=== PATIENT | male | born 1950 ===

== ENCOUNTER 2020-08-08 15:02 | Outpatient (REF) | payer MEDICARE, MEDICAID, SELFPAY ==
--- NOTE | 2020-08-08 16:30 | MHC.AU.HAS ---
Date of Visit: 08/08/20 Historical Information: Description of Hearing: Asymmetrical sensorineural hearing loss bilaterally. Mild to moderate in the right ear, mild to moderately severe in the left ear. Was seen by ENT Dr. Pruitt, who provided medical clearance for binaural hearing aid use. Summary: Mr. Lepe reports difficulties hearing and understanding in most situations. 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 Binaural amplification is recommended to facilitate improved communication. Rechargeable KITTY aids were recommended based on his reduced dexterity. Hearing Aid Prescription: Based on the individual?s shared listening needs, communication environments, dexterity, desire for connectivity, and personal preferences, the following prescription for amplification has been made: Right ear: Management Tech: Phonak Model: Audeo P70-R Color: P1 Battery Size: Rechargeable Tungsten Tender/Slim Tube Size: 1 Medium Type of Dome: Open Left ear: Left ear prescription to be same as Right Hearing Aid above: Yes Management Tech: Phonak Model: Audeo P70-R Color: P1 Battery Size: Rechargeable Tungsten Tender/Slim Tube Size: 1 Medium Type of Dome: Open Action Taken/Action Needed: Hearing Fitting to be scheduled when materials arrive Primary Diagnosis: H90.3 Sensorineural hearing loss, bilateral Signature: Provider: Bryan Tello, ALVIN-A
== END 2020-08-08 15:03 | disposition home or self-care (01) ==
LOC: HO.HAP 15:02
PROVIDERS: Visit Provider Otolaryngology
DX: Z46.1 Encounter for fitting and adjustment of hearing aid (principal)
CPT/HCPCS: 92591

== ENCOUNTER 2020-08-27 09:14 | Outpatient (REF) | payer MEDICARE, MEDICAID, SELFPAY | END 2020-08-27 09:15 | disposition home or self-care (01) | LOC: HO.HAP 09:14 | PROVIDERS: Visit Provider Internal Medicine | DX: H90.3 Sensorineural hearing loss, bilateral (principal) | CPT/HCPCS: V5011; V5020; V5160; V5261 ==

== ENCOUNTER 2020-09-11 11:03 | Outpatient (REF) | payer MEDICARE, MEDICAID, SELFPAY | END 2020-09-11 11:04 | disposition home or self-care (01) | LOC: HO.HAP 11:03 | PROVIDERS: Visit Provider Internal Medicine | DX: Z13.89 Encounter for screening for other disorder (principal) ==

== ENCOUNTER 2020-09-26 11:03 | Outpatient (REF) | payer MEDICARE, MEDICAID, SELFPAY ==
[2020-09-26 11:38] LABS: MANUAL DIFF FLAG NO
[2020-09-26 11:51] LABS: Basophils Percent Auto 0.5 % (0-2); Eosinophils Absolute Auto 0.3 X10*3/uL (0.0-0.4); Eosinophils Percent Auto 4.4 % (0-4); Hematocrit 39.2 % (42-52); Hemoglobin 13.3 g/dl (14.0-18.0); Imm Gran Abs Auto 0.02 X10*3/uL (0.00-0.03); Imm Gran Pct Auto 0.3 % (0.0-0.4); Lymphocytes Absolute Auto 2.8 X10*3/uL (1.2-4.9); Lymphocytes Percent Auto 44.5 % (20-40); Mean Corpuscular HGB Conc 33.9 g/dl (31.0-36.0); Mean Corpuscular Hemoglobin 31.7 pg (27.0-33.0); Mean Corpuscular Volume 93.6 fL (80-98); Mean Platelet Volume 9.2 fL (9.4-12.4); Monocytes Absolute Auto 0.5 X10*3/uL (0.1-1.2); Monocytes Percent Auto 7.8 % (2-11); Neutrophils Absolute Auto 2.7 X10*3/uL (2.0-8.3); Neutrophils Percent Auto 42.5 % (45-73); Platelet Count 173 X10*3/uL (160-400); Red Blood Count 4.19 X10*6/uL (4.60-5.80); Red Cell Distribution Width 12.7 % (11.0-16.0); White Blood Count 6.4 X10*3/uL (4.8-10.8)
[2020-09-26 12:17] LABS: Alanine Aminotransferase 14 U/L (0-40); Albumin Level 3.9 g/dL (3.5-5.0); Alkaline Phosphatase 92 U/L (39-117); Anion Gap 11 (12-20); Aspartate Amino Transferase 17 U/L (5-37); Bilirubin Total 0.5 mg/dL (0.0-1.0); Blood Urea Nitrogen 21 mg/dL (9-16); Calcium 8.8 mg/dL (8.4-10.2); Carbon Dioxide 28 mmol/L (22-29); Chloride 106 mmol/L (96-108); Cholesterol 182 mg/dL; Estimated Glomerular Filt Rate > 60; Glucose Fasting 149 mg/dL (60-99); HDL Cholesterol 55 mg/dL; LDL Cholesterol Calculated 120 mg/dl; Potassium 4.7 mmol/L (3.3-5.1); Sodium 140 mmol/L (135-145); Total Protein 6.6 g/dL (6.5-8.0); Triglycerides 37 mg/dL
[2020-09-26 12:18] LABS: Creatinine Urine 110.76 mg/dL
[2020-09-26 12:59] LABS: Estimated Average Glucose 157 mg/dL; Hemoglobin A1c % 7.1 %
== END 2020-09-26 11:04 | disposition home or self-care (01) ==
LOC: HO.LAB 11:03
PROVIDERS: Visit Provider Internal Medicine
DX: Z00.00 Encounter for general adult medical examination without abnormal findings (principal); E11.9 Type 2 diabetes mellitus without complications
CPT/HCPCS: 36415; 80053; 80061; 82043; 83036; 85025

== ENCOUNTER 2021-06-23 09:53 | Outpatient (REF) | payer MEDICARE, MEDICAID, SELFPAY ==
[2021-06-23 10:04] LABS: MANUAL DIFF FLAG NO
[2021-06-23 10:22] LABS: Basophils Percent Auto 0.6 % (0-2); Eosinophils Absolute Auto 0.4 X10*3/uL (0.0-0.4); Hemoglobin 13.3 g/dl (14.0-18.0); Imm Gran Abs Auto 0.03 X10*3/uL (0.00-0.03); Imm Gran Pct Auto 0.4 % (0.0-0.4); Lymphocytes Absolute Auto 2.7 X10*3/uL (1.2-4.9); Lymphocytes Percent Auto 38.2 % (20-40); Mean Corpuscular HGB Conc 33.3 g/dl (31.0-36.0); Mean Corpuscular Hemoglobin 30.7 pg (27.0-33.0); Mean Corpuscular Volume 92.4 fL (80.0-98.0); Mean Platelet Volume 8.8 fL (9.4-12.4); Monocytes Absolute Auto 0.6 X10*3/uL (0.1-1.2); Monocytes Percent Auto 7.8 % (2-11); Neutrophils Absolute Auto 3.42 x10*3/uL (2.0-8.3); Platelet Count 188 X10*3/uL (160-400); Red Blood Count 4.33 X10*6/uL (4.60-5.80); Red Cell Distribution Width 12.6 % (11.0-16.0); White Blood Count 7.1 X10*3/uL (4.8-10.8)
[2021-06-23 10:33] LABS: Estimated Average Glucose 177 mg/dL; Hemoglobin A1c % 7.8 %
[2021-06-23 10:45] LABS: Alanine Aminotransferase 16 U/L (0-40); Albumin Level 3.8 g/dL (3.5-5.0); Alkaline Phosphatase 104 U/L (39-117); Anion Gap 8 (12-20); Aspartate Amino Transferase 14 U/L (5-37); Bilirubin Total 0.6 mg/dL (0.0-1.0); Blood Urea Nitrogen 21 mg/dL (9-16); Calcium 9.1 mg/dL (8.4-10.2); Carbon Dioxide 31 mmol/L (22-29); Chloride 107 mmol/L (96-108); Cholesterol 164 mg/dL; Estimated Glomerular Filt Rate > 60; Glucose Fasting 176 mg/dL (60-99); HDL Cholesterol 49 mg/dL; LDL Cholesterol Calculated 106 mg/dl; Potassium 4.9 mmol/L (3.3-5.1); Sodium 141 mmol/L (135-145); Total Protein 6.5 g/dL (6.5-8.0); Triglycerides 48 mg/dL
== END 2021-06-23 09:54 | disposition home or self-care (01) ==
LOC: HO.LAB 09:53
PROVIDERS: PCP Internal Medicine; Visit Provider Internal Medicine
DX: Z00.00 Encounter for general adult medical examination without abnormal findings (principal); E11.9 Type 2 diabetes mellitus without complications
CPT/HCPCS: 36415; 80053; 80061; 83036; 85025

== ENCOUNTER 2021-10-14 10:31 | Outpatient (REF) | payer MEDICARE, MEDICAID, SELFPAY ==
[2021-10-14 10:49] LABS: MANUAL DIFF FLAG NO
[2021-10-14 11:42] LABS: Basophils Percent Auto 0.5 % (0-2); Eosinophils Absolute Auto 0.2 X10*3/uL (0.0-0.4); Eosinophils Percent Auto 3.6 % (0-4); Hematocrit 40.1 % (42.0-52.0); Hemoglobin 13.2 g/dl (14.0-18.0); Imm Gran Abs Auto 0.01 X10*3/uL (0.00-0.03); Imm Gran Pct Auto 0.2 % (0.0-0.4); Lymphocytes Absolute Auto 2.8 X10*3/uL (1.2-4.9); Lymphocytes Percent Auto 43.9 % (20-40); Mean Corpuscular HGB Conc 32.9 g/dl (31.0-36.0); Mean Corpuscular Hemoglobin 30.6 pg (27.0-33.0); Mean Corpuscular Volume 92.8 fL (80.0-98.0); Monocytes Absolute Auto 0.5 X10*3/uL (0.1-1.2); Monocytes Percent Auto 7.6 % (2-11); Neutrophils Absolute Auto 2.9 x10*3/uL (2.0-8.3); Neutrophils Percent Auto 44.2 % (45-73); Platelet Count 177 X10*3/uL (160-400); Red Blood Count 4.32 X10*6/uL (4.60-5.80); Red Cell Distribution Width 13.1 % (11.0-16.0); White Blood Count 6.5 X10*3/uL (4.8-10.8)
[2021-10-14 11:48] LABS: Prothrombin Time 11.9 SEC (9.9-13.0)
[2021-10-14 12:06] LABS: Glucose Fasting 151 mg/dL (60-99)
[2021-10-14 12:09] LABS: Anion Gap 10 (12-20); Blood Urea Nitrogen 18 mg/dL (9-16); Calcium 9.2 mg/dL (8.4-10.2); Carbon Dioxide 29 mmol/L (22-29); Chloride 106 mmol/L (96-108); Cholesterol 172 mg/dL; Estimated Glomerular Filt Rate > 60; Glucose Random 152 mg/dL (60-115); HDL Cholesterol 52 mg/dL; LDL Cholesterol Calculated 110 mg/dl; Potassium 4.7 mmol/L (3.3-5.1); Sodium 140 mmol/L (135-145); Triglycerides 51 mg/dL
[2021-10-14 12:14] LABS: Estimated Average Glucose 177 mg/dL; Hemoglobin A1c % 7.8 %
== END 2021-10-14 10:32 | disposition home or self-care (01) ==
LOC: HO.LAB 10:31
PROVIDERS: PCP Internal Medicine; Visit Provider Internal Medicine
DX: Z01.818 Encounter for other preprocedural examination (principal); Z13.0 Encounter for screening for diseases of the blood and blood-forming organs and certain disorders involving the immune mechanism; R51.9 Headache, unspecified; E11.65 Type 2 diabetes mellitus with hyperglycemia
CPT/HCPCS: 36415; 80048; 80061; 82947; 83036; 85025; 85610

== ENCOUNTER 2022-06-02 09:43 | Outpatient (REF) | payer MEDICARE, MEDICAID, SELFPAY ==
[2022-06-02 10:32] LABS: Estimated Average Glucose 177 mg/dL; Hemoglobin A1c % 7.8 %
[2022-06-02 10:56] LABS: Cholesterol 175 mg/dL; Glucose Fasting 181 mg/dL (60-99); HDL Cholesterol 54 mg/dL; LDL Cholesterol Calculated 110 mg/dl; Triglycerides 58 mg/dL
== END 2022-06-02 09:44 | disposition home or self-care (01) ==
LOC: HO.LAB 09:43
PROVIDERS: PCP Internal Medicine; Visit Provider Internal Medicine
DX: E78.5 Hyperlipidemia, unspecified (principal); E11.65 Type 2 diabetes mellitus with hyperglycemia
CPT/HCPCS: 36415; 80061; 82947; 83036

== ENCOUNTER → 2022-07-09 14:11 | Outpatient (BNVA) | payer MEDICARE, MEDICAID, SELFPAY | PROVIDERS: PCP Internal Medicine; Visit Provider Nurse Practitioner | DX: Z01.818 Encounter for other preprocedural examination (principal) | CPT/HCPCS: 99202 ==

== ENCOUNTER 2022-12-29 09:07 | Outpatient (REF) | payer MEDICARE, MEDICAID, SELFPAY ==
[2022-12-29 09:31] LABS: MANUAL DIFF FLAG NO
[2022-12-29 09:53] LABS: Basophils Percent Auto 0.6 % (0-2); Eosinophils Absolute Auto 0.3 X10*3/uL (0.0-0.4); Hematocrit 41.8 % (42.0-52.0); Hemoglobin 13.9 g/dl (14.0-18.0); Imm Gran Abs Auto 0.01 X10*3/uL (0.00-0.03); Imm Gran Pct Auto 0.1 % (0.0-0.4); Lymphocytes Absolute Auto 2.8 X10*3/uL (1.2-4.9); Mean Corpuscular HGB Conc 33.3 g/dl (31.0-36.0); Mean Corpuscular Hemoglobin 30.3 pg (27.0-33.0); Mean Corpuscular Volume 91.3 fL (80.0-98.0); Monocytes Absolute Auto 0.6 X10*3/uL (0.1-1.2); Monocytes Percent Auto 8.1 % (2-11); Neutrophils Percent Auto 44.2 % (45-73); Platelet Count 174 X10*3/uL (160-400); Red Blood Count 4.58 X10*6/uL (4.60-5.80); Red Cell Distribution Width 12.8 % (11.0-16.0); White Blood Count 6.8 X10*3/uL (4.8-10.8)
[2022-12-29 10:15] LABS: Estimated Average Glucose 166 mg/dL; Hemoglobin A1c % 7.4 %
[2022-12-29 11:27] LABS: Alanine Aminotransferase 13 U/L (0-40); Albumin Level 3.7 g/dL (3.5-5.0); Alkaline Phosphatase 107 U/L (39-117); Anion Gap 9 (12-20); Aspartate Amino Transferase 13 U/L (5-37); Bilirubin Total 0.5 mg/dL (0.0-1.0); Blood Urea Nitrogen 17 mg/dL (9-16); Calcium 9.1 mg/dL (8.4-10.2); Carbon Dioxide 29 mmol/L (22-29); Chloride 108 mmol/L (96-108); Cholesterol 169 mg/dL; Estimated Glomerular Filt Rate > 60; Glucose Fasting 152 mg/dL (60-99); HDL Cholesterol 49 mg/dL; LDL Cholesterol Calculated 113 mg/dl; Potassium 4.7 mmol/L (3.3-5.1); Sodium 141 mmol/L (135-145); Total Protein 6.2 g/dL (6.5-8.0); Triglycerides 35 mg/dL
[2022-12-29 11:30] LABS: Thyroid Stimulating Hormone 4.88 uIU/mL (0.32-4.0)
== END 2022-12-29 09:08 | disposition home or self-care (01) ==
LOC: HO.LAB 09:07
PROVIDERS: PCP Internal Medicine; Visit Provider Internal Medicine
DX: D64.9 Anemia, unspecified (principal); E78.5 Hyperlipidemia, unspecified; N28.9 Disorder of kidney and ureter, unspecified; E03.9 Hypothyroidism, unspecified; R73.9 Hyperglycemia, unspecified; E11.69 Type 2 diabetes mellitus with other specified complication; E66.01 Morbid (severe) obesity due to excess calories
CPT/HCPCS: 36415; 80053; 80061; 83036; 84443; 85025

== ENCOUNTER 2023-02-02 10:03 | Day surgery (SDC) | payer MEDICARE, MEDICAID, SELFPAY ==
[2023-01-31 14:55] VITALS: BMI 30.4
--- NOTE | 2023-02-01 13:25 | HO.ANESPROP2 ---
Documented by User: Claire Chung NP 02/01/23 13:26 HPI - Anesthesia Eval Consult details Narrative: 72yo M for Colonoscopy PMFSH Active Problems Active Problems: All Active Problems (Updated 01/31/23 @ 14:50 by Aliza Moses RN) Tinea corporis (Acute) Encounter for initial annual wellness visit (AWV) in Medicare patient (Acute) Screening for colon cancer (Acute) Adult general medical exam (Acute) Preop exam for internal medicine (Acute) Peripheral vascular disease (Acute) Spondylolisthesis (Acute) Peptic ulcer disease (Acute) Pre-op examination (Acute) Depression (Acute) Diabetes mellitus with coincident hypertension (Acute) Diabetes mellitus (Acute) Hypertension (Acute) Past Medical History Medical History Diabetes mellitus Diabetes mellitus with coincident hypertension Hypertension Peptic ulcer disease Preop exam for internal medicine Family History Family History Father No problems noted. Mother No problems noted. Surgical History Surgical History H/O blepharoplasty H/O rhinoplasty History of appendectomy History of bladder surgery History of colonoscopy History of esophagogastroduodenoscopy (EGD) Social History Social History Housing: House Alcohol intake: never Patient Tobacco Use Status: Never used Tobacco e-Cigarette/Vaping Use: Never Used Second Hand Smoke Exposure: No Use of substances other than those prescribed or required for medical reasons: No Are you DNR?: No Advance Directives: No Advance Directives Information Provided: Yes service: No Current occupational status: retired Cognitive needs: No Hearing needs: No Vision needs: No Meds Allergies Allergy/AdvReac Type Severity Reaction Status Date / Time No Known Allergies Allergy Verified 02/02/23 10:36 [No Known Allergies*] Home Medications Medication Instructions Recorded Confirmed Last Taken Type vnkulruzkq-kcrjyquobdrvj-ibodfpqb 1 - 2 tab PO DAILY PRN migraine 02/02/23 02/02/23 Unknown History 50 mg-325 mg-40 mg tablet Exam Exam Date and Time: February 01, 2023 1325 Height,Weight and Vital Signs: Height 5 ft 2 in Weight 75.296 kg Pertinent Lab Results Pertinent Lab Results: Laboratory Tests 12/29/22 12/29/22 09:29 09:29 WBC 6.8 Hgb 13.9 L Hct 41.8 L Plt Count 174 Sodium 141 Potassium 4.7 Chloride 108 Carbon Dioxide 29 BUN 17 H Creatinine 0.75 Assessment and Plan Assessment Anesthesia Assessment: Chart Reviewed Documented by User: Julieth Mcmillan MD 02/02/23 11:16 PMFSH Active Problems Active Problems: All Active Problems (Updated 02/02/23 @ 11:08 by Julieth Mcmillan MD) Tinea corporis (Acute) Encounter for initial annual wellness visit (AWV) in Medicare patient (Acute) Screening for colon cancer (Acute) Adult general medical exam (Acute) Preop exam for internal medicine (Acute) Peripheral vascular disease (Acute) Spondylolisthesis (Acute) Peptic ulcer disease (Acute) Pre-op examination (Acute) Depression (Acute) Diabetes mellitus with coincident hypertension (Acute) Diabetes mellitus (Acute) Hypertension (Acute) Migraines Past Medical History Medical History Diabetes mellitus Diabetes mellitus with coincident hypertension Hypertension Peptic ulcer disease Preop exam for internal medicine Family History Family History Father No problems noted. Mother No problems noted. Family history of problems with anesthesia: No Surgical History Surgical History H/O blepharoplasty H/O rhinoplasty History of appendectomy History of bladder surgery History of colonoscopy History of esophagogastroduodenoscopy (EGD) History of Problems with Anesthesia: No Social History Social History Housing: House Alcohol intake: never Patient Tobacco Use Status: Never used Tobacco e-Cigarette/Vaping Use: Never Used Second Hand Smoke Exposure: No Use of substances other than those prescribed or required for medical reasons: No Are you DNR?: No Advance Directives: No Advance Directives Information Provided: Yes service: No Current occupational status: retired Cognitive needs: No Hearing needs: No Vision needs: No Meds Allergies Allergy/AdvReac Type Severity Reaction Status Date / Time No Known Allergies Allergy Verified 02/02/23 10:36 [No Known Allergies*] Home Medications Medication Instructions Recorded Confirmed Last Taken Type kycquortvb-gyunrldzqdcin-hzkykthg 1 - 2 tab PO DAILY PRN migraine 02/02/23 02/02/23 Unknown History 50 mg-325 mg-40 mg tablet Exam Height,Weight and Vital Signs: Height 5 ft 2 in Weight 75.296 kg Vital Signs Temp Pulse Resp BP Pulse Ox O2 Del Method 02/02/23 11:03 98.3 F 66 16 146/60 H 97 Room Air Pertinent Lab Results Pertinent Lab Results: Laboratory Tests 12/29/22 12/29/22 09:29 09:29 WBC 6.8 Hgb 13.9 L Hct 41.8 L Plt Count 174 Sodium 141 Potassium 4.7 Chloride 108 Carbon Dioxide 29 BUN 17 H Creatinine 0.75 POC 62 Airway Mallampati Class: III TM Dist: >3cm Neck ROM: Full Loose/Missing/Broken Teeth: No (Denies broken, loose, missing teeth) Heart: RRR Lungs: CTAB Assessment and Plan Assessment Anesthesia Assessment: Anesthesia Plan Discussed Final Anesthetic Review Family History of Problems with Anesthesia: No History of Problems with Anesthesia: No NPO: Yes ASA Class: III Final Preanesthetic Review: No Changes in Pt Med Stat, Meds/Allgs Chart Reviewed, Consent Obtained/Reviewed and Anes Risks/Benef Reviewed Patient Risk: Intermediate Procedure Risk: Low Assessment/Block/Sedation in SS: Assess/Block/Sedation-SS Anesthetic Plan Anesthetic Plan: MAC: Disposition: Standard PACU
[2023-02-02 10:55] VITALS: BMI 29.3
[2023-02-02 11:03] VITALS: BP 146/60; PULSE 66; RESP 16; TEMP 36.8; O2SAT 97
--- NOTE | 2023-02-02 11:13 | P.HPSUR_ITS ---
Pre-Procedural Eval Section A Date of Service: 02/02/23 Section B Chief Complaint: screening for malignant neoplasm of Colon Relevant Family History (Specify if Yes): No Relevant Social History: None Present Medications: see Short Stay Collaborative assessment Medical History: Significant History (Diabetes mellitus Diabetes mellitus with coincident hypertension Hypertension Peptic ulcer disease Preop exam for internal medicine) History of Previous Operations: Relevant previous surgery/procedure and date(s) (H/O blepharoplasty H/O rhinoplasty History of appendectomy History of bladder surgery History of colonoscopy History of esophagogastroduodenoscopy (EGD)) Allergies: Allergies Allergy/AdvReac Type Severity Reaction Status Date / Time No Known Allergies Allergy Verified 02/02/23 10:36 [No Known Allergies*] Review of Systems Sugical H&P ROS: Negative: Constitution, Cardiovascular, Respiratory, Neurological, Psychiatric, Hem-Onc, Allergic/Immunologic, Gastrointestinal, Genitourinary, Musculoskeletal, Integumentary, Endocrine and Eyes/Ears /Nose/Throat Exam Surgical H&P Exam: Normal: HEENT, Normal: Heart, Normal: Lungs, Normal: Extremities, Normal: Abdomen and Normal: Skin and Significant Findings: Neurological (tremor) Plan Diagnosis/Plan: Unchanged I have reviewed the history and physical and performed a pertinent physical examination on my patient. No changes have occurred unless specified. Time Spent With Patient Time: Total time managing care of this patient today ____ minutes.
--- NOTE | 2023-02-02 11:14 | W.PM.OPN ---
Operative Note Operative Note Date of Service: 02/02/23 Narrative: Operative Information Procedure Description: Colonoscopy Indication: screening Anesthesia: MAC COLONOSCOPY Instrument: Olympus variable stiffness pediatric scope 190L Colonoscopy Monitoring: Vital signs and clinical assessment, continuous EKG monitoring, Pulse oximetry, Carbon Dioxide monitoring and blood pressure monitoring were done throughout the procedure. Colon withdrawal time was 18 minutes. Procedure: The patient was placed in the left lateral decubitis position and pre-procedure medications were administered. After a digital rectal examination of the ano-rectum, the video colonoscope was inserted into the rectum and advanced through the colon to the cecum/TI. The colonoscope was slowly withdrawn in a retrograde panoramic fashion and the colon mucosa was carefully examined including a retroflexed view of the rectum. Findings and interventions are described below. Procedure Difficulty: moderate, pressure applied Findings: Terminal Ileum-normal Cecum:normal Ascending Colon: 4-6 mm sessile polyp removed with cold snare Transverse Colon -normal Descending Colon:normal Sigmoid Colon: moderate diverticulosis, over one tic there was a 4-5 mm sessile polyp. eleview was injected and lifted and then removed with cold forceps with one clip applied to close the defect Rectum: Retroflexion with moderate sized internal hemorrhoids, grade I Anorectum - normal Colon preparation: [place] Bowel Preparation Scale Right colon; 2 Transverse colon: 2 Left colon; 2 (0 = Unprepared colon segment with mucosa not seen due to solid stool that cannot be cleared. 1 = Portion of mucosa of the colon segment seen, but other areas of the colon segment not well seen due to staining, residual stool and/or opaque liquid. 2 = Minor amount of residual staining, small fragments of stool and/or opaque liquid, but mucosa of colon segment seen well. 3 = Entire mucosa of colon segment seen well with no residual staining, small fragments of stool or opaque liquid) Impression and Post Procedure Diagnosis: polyps internal hemorrhoids diverticular disease Plan: High fiber diet leaflet Avoid straining at stool, epsom salts and sitz bath, anusol supps or cream Repeat Colonoscopy in 5 years if heatlh allows or earlier if clinically indicated, otherwise this will be his last screening colonoscopy Above findings were reviewed with the patient and relevant handouts were provided if indicated.
[2023-02-02] MEDS: Lactated Ringers 1,000 ML 100 ML IVCONT (11:21)
[2023-02-02 11:25] LABS: Glucose, Whole Blood 62 mg/dL (60-115)
[2023-02-02] MEDS: Dextrose 5 % 250 ML IVCONT (11:27)
[2023-02-02 12:09] VITALS: BP 91/50; PULSE 63; RESP 16; TEMP 37.2; O2SAT 97
[2023-02-02 12:24] VITALS: BP 113/62; PULSE 66; RESP 16; O2SAT 98
[2023-02-02 12:39] VITALS: BP 107/65; PULSE 60; RESP 16; TEMP 37.2; O2SAT 98
== END 2023-02-02 13:29 | disposition home or self-care (01) ==
PROVIDERS: PCP Internal Medicine; Visit Provider Internal Medicine Gastroenterology
PROC: 0DJD8ZZ Inspection of Lower Intestinal Tract, Via Natural or Artificial Opening Endoscopic (ICD-10-PCS; CPT 45378; principal; 2023-02-02 12:40)
DX: Z12.11 Encounter for screening for malignant neoplasm of colon (principal); D12.5 Benign neoplasm of sigmoid colon; K63.5 Polyp of colon; K57.30 Diverticulosis of large intestine without perforation or abscess without bleeding; K64.0 First degree hemorrhoids; K27.9 Peptic ulcer, site unspecified, unspecified as acute or chronic, without hemorrhage or perforation; E11.9 Type 2 diabetes mellitus without complications; I10 Essential (primary) hypertension; I73.9 Peripheral vascular disease, unspecified; G43.909 Migraine, unspecified, not intractable, without status migrainosus; B35.4 Tinea corporis; Z79.84 Long term (current) use of oral hypoglycemic drugs; Z79.899 Other long term (current) drug therapy; Z98.890 Other specified postprocedural states
CPT/HCPCS: 45385; 45380; 45381; 82947; 88305

== ENCOUNTER → 2023-02-17 12:26 | Outpatient (BNVA) | payer MEDICARE, MEDICAID, SELFPAY | PROVIDERS: PCP Internal Medicine; Visit Provider Nurse Practitioner | DX: D12.6 Benign neoplasm of colon, unspecified (principal) | CPT/HCPCS: 99212 ==

== ENCOUNTER 2023-03-31 08:54 | Outpatient (AMB) | payer MEDICARE, MEDICAID, SELFPAY ==
--- NOTE | 2023-03-31 09:01 | MHC.PC.OV ---
Vital Signs 03/31/23 09:03 Height 5 ft 2 in Weight 159 lb BMI 29.1 BP 108/66 Blood Pressure Location Lt brachial Position Sitting Pulse 58 Pulse Source Pulse Oximeter Pulse Oximetry (%) 96 Oxygen Delivery Method Room Air Intake Visit Reasons: PE Steward/Stewardess Second Required: No Accompanied by: Spouse Allergies No Known Allergies [No Known Allergies*] Allergy (Verified 03/31/23 09:08) Medication List - Last Reconciled 03/31/23 by Jovani Reese MD blood sugar diagnostic FREESTYLE LITE TEST STRIPS THREE TIMES A DAY blood-glucose meter (FreeStyle Lite Meter kit) use to check blood sugars twice a day ngcdpejuzr-kegqwdvugsdhr-fxge 50-325-40 mg 1 - 2 tabs PO DAILY PRN clotrimazole-betamethasone 1-0.05 % 1 appl topical BID 2 weeks glyburide 5 mg PO DAILY lancets (FreeStyle Lancets) FREESTYLE LANCETS THREE TIMES A DAY lisinopril 10 mg PO DAILY metformin 500 mg PO BID phenazopyridine 100 mg PO TID PRN propranolol 10 mg PO ONCE PRN Tobacco use date assessed: 03/31/23 Fall risk assessment: No Falls in past year Last assessed Fall Risk: 03/31/23 Dental Screening Dental Screen Date: 03/31/23 Did you have a dental visit in the last 12 months?: Yes Did you have a dental problem in the last 6 months where you did not have access to dental care?: No Was dental information given to patient?: Patient has dentist HPI PE HPI Details DM chronic headaches hypertension; having bladder surgery in [place] for hematuria and presumed malignancy [facility] Medical History Diabetes mellitus Diabetes mellitus with coincident hypertension Hypertension Peptic ulcer disease Preop exam for internal medicine Surgical History H/O blepharoplasty H/O rhinoplasty History of appendectomy History of bladder surgery History of colonoscopy History of esophagogastroduodenoscopy (EGD) Family History Father No problems noted. Mother No problems noted. Social History Housing: House Alcohol intake: never Patient Tobacco Use Status: Never used Tobacco e-Cigarette/Vaping Use: Never Used Second Hand Smoke Exposure: No service: No Current occupational status: retired Cognitive needs: No Hearing needs: No Vision needs: No Questionnaire PHQ-9 Over the last 2 weeks, how often have you been bothered by any of the following problems? 1. Little interest or pleasure in doing things: not at all 2. Feeling down, depressed, or hopeless: not at all 3. Trouble falling or staying asleep, or sleeping too much: not at all 4. Feeling tired or having little energy: not at all 5. Poor appetite or overeating: not at all 6. Feeling bad about yourself - or that you are a failure or have let yourself or your family down: not at all 7. Trouble concentrating on things, such as reading the newspaper or watching television: not at all 8. Moving or speaking so slowly that other people could have noticed. Or the opposite - being so fidgety or restless that you have been moving around a lot more than usual: not at all 9. Thoughts that you would be better off or of hurting yourself in some way: not at all Total score: 0 Depression Screening Interpretation: Negative 90674 - PHQ-9 Billing: Yes Source: Developed by Drs. Manjit Figueredo, Concha Mariano, Yasmani Bertrand and colleagues, with an educational ana from [employer]. Thrive Questionnaire Date Thrive assessed: 03/31/23 I am a: Patient What is your living situation today?: I have a steady place to live Within the past 12 months, did the food you bought not last and you didn't have the money to get more?: Never true Within the past 12 months, did you worry whether your food would run out before you got money to buy more?: Never true Do you have trouble paying for medicines?: No Do you have trouble getting transportation to medical appointments?: No Do you have trouble paying your heating and electricity bill?: No Do you have trouble taking care of your child, family member or friend?: No Do you have trouble with day-to-day activities such as bathing, preparing meals, shopping, managing finances, etc.?: No Are you currently unemployed and looking for a job?: No Are you interested in more education?: No Please select the resources that you would like help with: None Currently or been in a relationship where the following occur: no concerns reported AUDIT C Alcohol Use Questionnaire (AUDIT-C) 1. How often do you have a drink containing alcohol?: Never 3. How often do you have six or more drinks on one occasion?: Never Total Score: 0 Score Reviewed/Action Taken: Yes VICKY-7 AMB Questionnaire VICKY-7 Date VICKY - 7 assessed: 03/31/23 Feeling nervous, anxious, or on edge: 0 = Not at all Not being able to stop or control worryin = Not at all Worrying too much about different things: 0 = Not at all Trouble relaxin = Not at all Being so restless that it is hard to sit still: 0 = Not at all Becoming easily annoyed or irritable: 0 = Not at all Feeling afraid as if something awful might happen: 0 = Not at all Total VICKY-7 score (0-4 normal; 5-9 mild; 10-14 moderate; 15-21 severe): 0 Source: Developed by Drs. Manjit Figueredo, Concha Mariano, Yasmani Bertrand and colleagues, with an educational ana from [employer]. VICKY-7 Assessment Billing VICKY-7 Assessment Tool: VICKY-7 Assessment 43244 Review of Systems Const Denies chills, Denies fatigue, Denies headache(s) and Denies weight loss Eyes Denies change in vision, Denies diplopia and Denies eye pain ENT Denies vertigo, Denies dizziness, Denies headache(s) and Denies nasal discharge Card Denies chest pain, Denies rapid heart rate and Denies dyspnea on exertion Resp Denies chest congestion, Denies cough, Denies pain with cough and Denies dyspnea on exertion GI Denies abdominal pain, Denies hematochezia and Denies change in bowel habits Musc Denies myalgias, Denies arthralgias and Denies joint swelling Skin/Breast Denies lesions and Denies unusual bruising Neuro Denies vertigo, Denies dizziness, Denies headache(s) and Denies focal weakness Endo Denies fatigue Physical exam (Primary Care) Vital Signs: Last Vital Signs Pulse 58 03/31/23 09:03 BP 108/66 03/31/23 09:03 Pulse Ox 96 03/31/23 09:03 Oxygen Delivery Method Room Air 03/31/23 09:03 BMI result Body Mass Index 29.1 Tobacco/Smoking Status: Tobacco use Status Tobacco use date assessed 03/31/23 03/31/23 09:09 Patient Tobacco Use Status Never used Tobacco 03/31/23 09:09 e-Cigarette/Vaping Use Never Used 03/31/23 09:09 PHQ-9: PHQ-9 Score PHQ-9: Total score 0 03/31/23 09:09 Depression Screening Interpretation: Negative Thrive Assessment: Date of Thrive Assessment Date Thrive assessed 03/31/23 03/31/23 09:09 Currently or been in a relationship where the following occur: no concerns reported Advance Care Planning discussion: On file, no changes Forms completed: Health Care Proxy Const General: cooperative, healthy appearing and no acute distress Orientation/consciousness: oriented to person, oriented to place and oriented to time HENMT Head: Yes normal to inspection, Yes normocephalic and Yes atraumatic Mouth: Normal oral and palatal mucosa present and tongue normal Throat: Yes posterior oropharynx normal and Yes uvula midline Eyes General: appearance normal, both eyes and all related structures Neck Neck: Yes normal visual inspection, Yes full ROM and Yes no lymphadenopathy Thyroid: Thyroid normal Carotids: normal carotid upstroke Chest Chest palpation & inspection: normal inspection of the chest Resp Effort & Inspection: normal respiratory effort and able to speak in complete sentences Auscultation: clear to auscultation bilaterally Cardio Jugular venous distension: no JVD Palpation: normal PMI Rate: regular rate Rhythm: regular rhythm Heart sounds: S1 normal heart sound present and S2 normal heart sound present GI Inspection: Yes normal to inspection Palpation (GI): Soft to palpation and No hepatosplenomegaly present Auscultation: normal bowel sounds General: Yes no CVA tenderness Back/Spine/Pelvis Back: no CVA tenderness Skin General skin exam: no rashes or lesions noted Neuro General: oriented to person, oriented to place and oriented to time Extrem General: Yes normal to inspection and Yes full ROM Assessment and Plan Assessment & Plan (1) Physical exam: Code(s): Z00.00 - Encounter for general adult medical examination without abnormal findings Plan: do labs (2) Diabetes mellitus with coincident hypertension: Code(s): E11.9 - Type 2 diabetes mellitus without complications; I10 - Essential (primary) hypertension Plan: stable; do labs (3) Hypertension: Code(s): I10 - Essential (primary) hypertension Plan: stable; same meds Orders: Orders Lipid Panel Today E78.5 - Hyperlipidemia, unspecified Complete Blood Count Auto Diff Today D64.9 - Anemia, unspecified Comprehensive [place]. Panel Fast Today N28.9 - Disorder of kidney and ureter, unspecified Thyroid Stimulating Hormone Today E03.9 - Hypothyroidism, unspecified Microalbumin, Random (w Creat) Today E11.69 - Type 2 diabetes mellitus with other specified complication, E66.01 - Morbid (severe) obesity due to excess calories Medications: Refilled clotrimazole-betamethasone 1-0.05 % 1 appl topical BID 45 grams 3RF 2 weeks Coding Level of Care Code Est Pt Prev Care >65y(05432) Diagnoses Physical exam Z00.00 Diabetes mellitus with coincident hypertension E11.9; I10 Hypertension I10 Additional Codes VICKY-7 Assessment Billing - VICKY-7 Assessment Tool: VICKY-7 Assessment 18614 ([id number]) Vital Signs *Quality* - Advance Care Planning discussion: On file, no changes ([id number])
[2023-03-31 09:03] VITALS: BP 108/66; PULSE 58; O2SAT 96; BMI 29.1
== END 2023-03-31 09:34 | disposition home or self-care (01) ==
PROVIDERS: PCP Internal Medicine; Visit Provider Internal Medicine
DX: Z00.00 Encounter for general adult medical examination without abnormal findings (principal); E11.9 Type 2 diabetes mellitus without complications; I10 Essential (primary) hypertension
CPT/HCPCS: 1123F; 99397

== ENCOUNTER 2023-06-13 07:58 | Outpatient (AMB) | payer MEDICARE, MEDICAID, SELFPAY ==
[2023-06-13 08:15] VITALS: BP 114/62; PULSE 80; O2SAT 98; BMI 26.3
--- NOTE | 2023-06-13 08:15 | A.OFFPC_ITS ---
Vital Signs 06/13/23 08:15 Height 5 ft 2 in Weight 144 lb BMI 26.3 BP 114/62 Blood Pressure Location Lt brachial Position Sitting Pulse 80 Pulse Source Pulse Oximeter Pulse Oximetry (%) 98 Oxygen Delivery Method Room Air Intake Visit Reasons: Ear pain/ Referral Allergies No Known Allergies [No Known Allergies*] Allergy (Verified 06/13/23 08:27) Medication List - Last Reconciled 06/13/23 by Coy Pritchard PA-C blood sugar diagnostic FREESTYLE LITE TEST STRIPS THREE TIMES A DAY blood-glucose meter (FreeStyle Lite Meter kit) use to check blood sugars twice a day [id number]-[id number]-axwj 50-325-40 mg 1 - 2 tabs PO DAILY PRN clotrimazole-betamethasone 1-0.05 % 1 appl topical BID 2 weeks glyburide 5 mg PO DAILY lancets (FreeStyle Lancets) FREESTYLE LANCETS THREE TIMES A DAY lisinopril 10 mg PO DAILY metformin 500 mg PO BID phenazopyridine 100 mg PO TID PRN promethazine 25 mg PO Q6H PRN propranolol 10 mg PO ONCE PRN Tobacco use date assessed: 03/31/23 Fall risk assessment: No Falls in past year Last assessed Fall Risk: 06/13/23 Dental Screening Dental Screen Date: 06/13/23 Did you have a dental visit in the last 12 months?: Yes Did you have a dental problem in the last 6 months where you did not have access to dental care?: No Was dental information given to patient?: Patient has dentist HPI Ear pain/ Referral HPI Details Patient is a 73-year-old male here today for problem visit. This is the 1st time I am meeting this 73-year-old male with a past medical history significant for hypertension, type 2 diabetes. Reports had bladder removal surgery for bladder cancer . He was placed on Bactrim status post bladder surgery for skin wound infection. Now report worsening ear pain and worsening hearing ever since his surgery. also reports having headaches and dizziness. Has been to the emergency department for these symptoms told he did not an infection. has not done any OTC med for a possible sinusitis. [facility] Medical History Peptic ulcer disease Preop exam for internal medicine Diabetes mellitus with coincident hypertension Diabetes mellitus Hypertension Surgical History History of bladder surgery History of esophagogastroduodenoscopy (EGD) H/O rhinoplasty H/O blepharoplasty History of colonoscopy History of appendectomy Family History Father No problems noted. Mother No problems noted. Social History Housing: House Alcohol intake: never Patient Tobacco Use Status: Never used Tobacco e-Cigarette/Vaping Use: Never Used Second Hand Smoke Exposure: No service: No Current occupational status: retired Cognitive needs: No Hearing needs: No Vision needs: No Questionnaire PHQ-9 Over the last 2 weeks, how often have you been bothered by any of the following problems? 1. Little interest or pleasure in doing things: not at all 2. Feeling down, depressed, or hopeless: not at all 3. Trouble falling or staying asleep, or sleeping too much: not at all 4. Feeling tired or having little energy: not at all 5. Poor appetite or overeating: not at all 6. Feeling bad about yourself - or that you are a failure or have let yourself or your family down: not at all 7. Trouble concentrating on things, such as reading the newspaper or watching television: not at all 8. Moving or speaking so slowly that other people could have noticed. Or the opposite - being so fidgety or restless that you have been moving around a lot more than usual: not at all 9. Thoughts that you would be better off or of hurting yourself in some way: not at all Total score: 0 Depression Screening Interpretation: Negative Depression Screening Done: Yes 96320 - PHQ-9 Billing: Yes Source: Developed by Drs. Manjit Figueredo, Concha Mariano, Yasmani Bertrand and colleagues, with an educational ana from [employer]. Thrive Questionnaire Date Thrive assessed: 03/31/23 AUDIT C Alcohol Use Questionnaire (AUDIT-C) 1. How often do you have a drink containing alcohol?: Never 3. How often do you have six or more drinks on one occasion?: Never Total Score: 0 Score Reviewed/Action Taken: Yes VICKY-7 AMB Questionnaire VICKY-7 Date VICKY - 7 assessed: 03/31/23 Source: Developed by Drs. Manjit Figueredo, Concha Mariano, Yasmani Bertrand and colleagues, with an educational ana from [employer]. Review of Systems Const Denies headache(s) Eyes Denies loss of vision ENT Denies vertigo, Reports dizziness, Denies headache(s) and Denies sore throat Card Denies chest pain, Denies leg edema and Denies lightheadedness Resp Denies cough, Denies hemoptysis and Denies wheezing GI Denies abdominal pain, Denies melena, Denies constipation, Denies diarrhea and Denies vomiting Denies dysuria, Denies urinary frequency and Denies urinary urgency Musc Denies arthralgias, Denies joint swelling, Denies numbness and Denies tingling Neuro Denies Abnormal speech present, Denies behavioral changes, Denies vertigo, Reports dizziness, Denies headache(s), Denies loss of vision, Denies memory loss, Denies numbness and Denies tingling Psych Denies anxiety, Denies behavioral changes, Denies depression, Denies memory loss and Denies panic attacks Parish/Lymph Denies easy bleeding and Denies easy bruising Aller/Immun Denies wheezing Physical exam (Primary Care) Vital Signs: Last Vital Signs Pulse 80 06/13/23 08:15 BP 114/62 06/13/23 08:15 Pulse Ox 98 06/13/23 08:15 Oxygen Delivery Method Room Air 06/13/23 08:15 BMI result Body Mass Index 26.3 Tobacco/Smoking Status: Tobacco use Status Tobacco use date assessed 03/31/23 06/13/23 08:21 Patient Tobacco Use Status Never used Tobacco 06/13/23 08:21 e-Cigarette/Vaping Use Never Used 06/13/23 08:21 PHQ-9: PHQ-9 Score PHQ-9: Total score 0 06/13/23 08:34 Depression Screening Interpretation: Negative Thrive Assessment: Date of Thrive Assessment Date Thrive assessed 03/31/23 06/13/23 08:21 Const General: healthy appearing, no acute distress, alert and awake Nutritional Appearance: well nourished Orientation/consciousness: oriented to person, oriented to place and oriented to time HENMT Ears: TM's normal bilaterally General nose exam: Normal nasal mucous membranes and turbinates present Eyes Conjunctivae: conjunctivae normal Sclerae: sclerae normal Pupils: Equal, round and reactive pupils present Neck Neck: Yes no lymphadenopathy and Yes no JVD Thyroid: Thyroid normal Carotids: no bruits Resp Effort & Inspection: normal respiratory effort and not tachypneic Auscultation: no crackles, no rales, no rhonchi and no wheezes Cardio Rate: regular rate Rhythm: regular rhythm Heart sounds: no murmurs and normal S1 and S2 GI Palpation (GI): Soft to palpation, nontender, no hepatomegaly and no splenomegaly Auscultation: normal bowel sounds Skin General skin exam: no rashes or lesions noted and dry skin Neuro General: oriented to person, oriented to place and oriented to time Cranial nerves: Yes Equal, round and reactive pupils present Speech: No Abnormal speech present Gait exam (Neuro): Normal gait present Motor exam (neuro): no tremor noted Extrem Right upper extremity: full ROM Left upper extremity: full ROM Right lower extremity: full ROM; no edema Left lower extremity: full ROM; no edema Psych Mental Status: mental status grossly normal Speech and movement: Normal speech and movement present Affect: normal affect Attitude: cooperative Thought process: Normal thought process present Results AMB Hemoglobin A1c AMB Hemoglobin A1c 5.8 % Last Edit by Zulema Sylvester CMA on 06/13/23 08 :35 Results Reviewed Results Reviewed: Laboratory Last Values Hgb A1c (Clinic) 5.8 % (4.0-6.0) 06/13/23 08:15 Assessment and Plan Assessment & Plan (1) Chronic sinusitis: Code(s): J32.9 - Chronic sinusitis, unspecified Qualifiers: Sinusitis location: frontal Qualified Code(s): J32.1 - Chronic frontal sinusitis Plan: Patient's signs symptoms are consistent with chronic sinusitis with intermittent dizziness and ear pain. Advised on use of nasal sprays antihistamine therapy. Will refer to ENT for evaluation and possible treatment. Will send for x-rays to evaluate his sinuses. Orders: Orders AMB Hemoglobin A1c Today Z13.9 - Encounter for screening, unspecified XR sinus min 3V Today J32.1 - Chronic frontal sinusitis Referrals Ear/Nose/Throat Referral J32.1 - Chronic frontal sinusitis Medications: New fluticasone propionate 50 mcg/actuation (Flonase Allergy Relief) administer into each nostril 1 spray intranasal BID 30 days 16 grams 1RF J32.1 - Chronic frontal sinusitis cetirizine 10 mg PO BEDTIME 30 days 30 tabs 3RF allergy symptoms J32.1 - Chronic frontal sinusitis Coding Level of Care Code Est Pt Level 3 (67201) Diagnoses Chronic frontal sinusitis J32.1 Sinusitis location: frontal
== END 2023-06-13 08:50 | disposition home or self-care (01) ==
PROVIDERS: PCP Internal Medicine; Visit Provider Physician Assistant
DX: E11.65 Type 2 diabetes mellitus with hyperglycemia (principal); J32.1 Chronic frontal sinusitis
CPT/HCPCS: 83036; 99213

== ENCOUNTER 2023-06-13 09:01 | Outpatient (REF) | payer MEDICARE, MEDICAID, SELFPAY ==
--- NOTE | ~2023-06-13 | XR_ITS ---
EXAMINATION: XR SINUSES CLINICAL INFORMATION: Right ear and sinus pressure. COMPARISON: None available. TECHNIQUE: Pretty, Rajan, lateral, and SMV views of the paranasal sinuses are submitted. FINDINGS: Paranasal sinuses appear clear without air-fluid levels. No fractures are identified. The nasal septum is midline. No radiodense foreign bodies. XR/XR sinus min 3V IMPRESSION: Unremarkable examination.
== END 2023-06-13 09:02 | disposition home or self-care (01) ==
LOC: HO.XRAY 09:01
PROVIDERS: PCP Internal Medicine; Visit Provider Physician Assistant
DX: J32.1 Chronic frontal sinusitis (principal)
CPT/HCPCS: 70220

== ENCOUNTER 2023-07-04 11:03 | Outpatient (AMB) | payer MEDICARE, MEDICAID, SELFPAY ==
[2023-07-04 11:05] VITALS: BP 126/58; PULSE 76; O2SAT 98; BMI 27.1
--- NOTE | 2023-07-04 11:05 | MHC.PC.OV ---
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 Accompanied by: Daughter Allergies No Known Allergies [No Known Allergies*] Allergy (Verified 07/04/23 11:05) Medication List - Last Reconciled 07/05/23 by Jovani Reese MD blood sugar diagnostic FREESTYLE LITE TEST STRIPS THREE TIMES A DAY blood-glucose meter (FreeStyle Lite Meter kit) use to check blood sugars twice a day [id number]-[id number]-yemh 50-325-40 mg 1 - 2 tabs PO DAILY PRN cetirizine 10 mg PO BEDTIME 30 days clotrimazole-betamethasone 1-0.05 % 1 appl topical BID 2 weeks fluticasone propionate 50 mcg/actuation (Flonase Allergy Relief) 1 spray intranasal BID 30 days glyburide 5 mg PO DAILY lancets (FreeStyle Lancets) FREESTYLE LANCETS THREE TIMES A DAY lisinopril 10 mg PO DAILY metformin 500 mg PO BID phenazopyridine 100 mg PO TID PRN promethazine 25 mg PO Q6H PRN propranolol 10 mg PO ONCE PRN triamcinolone acetonide 0.5% 1 appl topical TID Tobacco use date assessed: 03/31/23 Fall risk assessment: No Falls in past year Last assessed Fall Risk: 07/04/23 Dental Screening Dental Screen Date: 07/04/23 Did you have a dental visit in the last 12 months?: Yes Did you have a dental problem in the last 6 months where you did not have access to dental care?: No Was dental information given to patient?: Patient has dentist HPI 3 mon F/U HPI Details DM HTN and depression; doing well on rx; compliant [facility] Medical History Peptic ulcer disease Preop exam for internal medicine Diabetes mellitus with coincident hypertension Diabetes mellitus Hypertension Surgical History History of bladder surgery History of esophagogastroduodenoscopy (EGD) H/O rhinoplasty H/O blepharoplasty History of colonoscopy History of appendectomy Family History Father No problems noted. Mother No problems noted. Social History Housing: House Alcohol intake: never Patient Tobacco Use Status: Never used Tobacco e-Cigarette/Vaping Use: Never Used Second Hand Smoke Exposure: No service: No Current occupational status: retired Cognitive needs: No Hearing needs: No Vision needs: No Questionnaire PHQ-9 Over the last 2 weeks, how often have you been bothered by any of the following problems? 1. Little interest or pleasure in doing things: not at all 2. Feeling down, depressed, or hopeless: not at all 3. Trouble falling or staying asleep, or sleeping too much: not at all 4. Feeling tired or having little energy: not at all 5. Poor appetite or overeating: not at all 6. Feeling bad about yourself - or that you are a failure or have let yourself or your family down: not at all 7. Trouble concentrating on things, such as reading the newspaper or watching television: not at all 8. Moving or speaking so slowly that other people could have noticed. Or the opposite - being so fidgety or restless that you have been moving around a lot more than usual: not at all 9. Thoughts that you would be better off or of hurting yourself in some way: not at all Total score: 0 Depression Screening Interpretation: Negative Depression Screening Done: Yes 07005 - PHQ-9 Billing: Yes Source: Developed by Drs. Manjit Figueredo, Concha Mariano, Yasmani Bertrand and colleagues, with an educational ana from [employer]. Thrive Questionnaire Date Thrive assessed: 03/31/23 AUDIT C Alcohol Use Questionnaire (AUDIT-C) 1. How often do you have a drink containing alcohol?: Never 3. How often do you have six or more drinks on one occasion?: Never Total Score: 0 Score Reviewed/Action Taken: Yes VICKY-7 AMB Questionnaire VICKY-7 Date VICKY - 7 assessed: 03/31/23 Source: Developed by Drs. Manjit Figueredo, Yasmani Delgado Kroenke and colleagues, with an educational ana from [employer]. Review of Systems Const Denies chills, Denies headache(s) and Denies weight loss ENT Denies headache(s) Card Denies chest pain, Denies syncope, Denies irregular heart rhythm and Denies dyspnea Resp Denies chest congestion, Denies cough and Denies dyspnea GI Denies abdominal pain, Denies change in stool character, Denies nausea and Denies vomiting Musc Denies deformity and Denies joint swelling Neuro Denies syncope and Denies headache(s) Physical exam (Primary Care) Vital Signs: Last Vital Signs Pulse 76 07/04/23 11:05 BP 126/58 L 07/04/23 11:05 Pulse Ox 98 07/04/23 11:05 Oxygen Delivery Method Room Air 07/04/23 11:05 BMI result Body Mass Index 27.1 Tobacco/Smoking Status: Tobacco use Status Tobacco use date assessed 03/31/23 07/04/23 11:06 Patient Tobacco Use Status Never used Tobacco 07/04/23 11:06 e-Cigarette/Vaping Use Never Used 07/04/23 11:06 PHQ-9: PHQ-9 Score PHQ-9: Total score 0 07/04/23 11:06 Depression Screening Interpretation: Negative Thrive Assessment: Date of Thrive Assessment Date Thrive assessed 03/31/23 07/04/23 11:06 Const General: cooperative, comfortable, no acute distress and alert Neck Neck: Yes no lymphadenopathy Thyroid: Thyroid normal Resp Effort & Inspection: normal respiratory effort Auscultation: clear to auscultation bilaterally Percussion: percussion normal Cardio Jugular venous distension: no JVD Palpation: normal PMI Rate: regular rate Rhythm: regular rhythm Heart sounds: S1 normal heart sound present and S2 normal heart sound present GI Inspection: Yes normal to inspection Palpation (GI): No hepatosplenomegaly present Skin General skin exam: no rashes or lesions noted Extrem General: Yes no clubbing, cyanosis or edema Assessment and Plan Assessment & Plan (1) Depression: Code(s): F32.9 - Major depressive disorder, single episode, unspecified Plan: stable; same rx (2) Diabetes mellitus with coincident hypertension: Code(s): E11.9 - Type 2 diabetes mellitus without complications; I10 - Essential (primary) hypertension Plan: stable; same rx (3) Hypertension: Code(s): I10 - Essential (primary) hypertension Plan: stable; same rx Orders: Orders Lipid Panel Today E78.5 - Hyperlipidemia, unspecified Glucose Fasting Today R73.9 - Hyperglycemia, unspecified Hemoglobin A1c Today R73.9 - Hyperglycemia, unspecified Medications: New triamcinolone acetonide 0.5% 1 appl topical TID 45 grams 3RF Refilled glyburide 5 mg PO DAILY 30 tabs 5RF Coding Level of Care Code Est Pt Level 4 (64080) Diagnoses Depression F32.9 Diabetes mellitus with coincident hypertension E11.9; I10 Hypertension I10
== END 2023-07-04 11:32 | disposition home or self-care (01) ==
PROVIDERS: PCP Internal Medicine; Visit Provider Internal Medicine
DX: E11.9 Type 2 diabetes mellitus without complications (principal); F32.9 Major depressive disorder, single episode, unspecified; I10 Essential (primary) hypertension
CPT/HCPCS: 99214

== ENCOUNTER 2023-09-09 09:10 | Outpatient (REF) | payer MEDICARE, MEDICAID, SELFPAY ==
--- NOTE | 2023-09-09 10:18 | MHC.AU.HA3 ---
Hearing Instrument Follow-Up- Binaural Date of Visit: 09/09/23 Right Ear: Make, Model, Color, Serial Number: [id number] Senior Python Developer Repair Warranty: 11/09/2023 Senior Python Developer Loss and Damage Warranty: [facility] Service Plan: Battery Size: Rechargeable Programmer Numerical Control/Slim Tube: 2 M Earmold/Dome/CShell/SlimTip:sm vented Type of Wax Guard: Cerushield Dispensed By: [facility] Date of Fittin08/27/2020 Left Ear: Make, Model, Color, Serial Number: [id number] Senior Python Developer Repair Warranty: 11/09/2023 Senior Python Developer Loss and Damage Warranty: [facility] Service Plan: Battery Size: Rechargeable Programmer Numerical Control/Slim Tube: 2 M Earmold/Dome/CShell/SlimTip: sm vented Type of Wax Guard: Cerushield Dispensed By: [facility] Date of Fittin08/27/2020 Follow-Up Summary: Here for adjustment, accompanied by daughter, who interpreted. Reports he heard well with the hearing aids at first, but not hearing well with them anymore. Last seen for [facility]O follow up in 2020. Cleaned and checked aids. Found both combination presser wires to be very distorted. Replaced receivers. Listening check positive after cleaning. Had to use 2M, no 1M in stock, fit looks good. Swapped to vented domes from open domes and increased gain from 80-100%. Recommended returning for evaluation and further adjustment, if needed, as it has been 3 years since his previous evaluation. Recommendations: Recommendations: Hearing instrument follow-up or maintenance as needed. Recommendations (Other): Request referral from PCP for hearing evaluation. Diagnosis Code(s): Primary Diagnosis: H90.3 Bilateral Sensorineural Hearing Loss Signature: Provider: Dany Phillips, [facility]
== END 2023-09-09 09:11 | disposition home or self-care (01) ==
LOC: HO.HAP 09:10
PROVIDERS: Visit Provider Internal Medicine
DX: Z46.1 Encounter for fitting and adjustment of hearing aid (principal); H90.3 Sensorineural hearing loss, bilateral
CPT/HCPCS: 92593; 99499

== ENCOUNTER 2023-10-06 10:11 | Outpatient (AMB) | payer MEDICARE, MEDICAID, SELFPAY ==
[2023-10-06 10:13] VITALS: BP 100/50; PULSE 62; O2SAT 99; BMI 26.0
--- NOTE | 2023-10-06 10:13 | A.OFFPC_ITS ---
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 Accompanied by: Daughter Allergies No Known Allergies [No Known Allergies*] Allergy (Verified 10/06/23 10:14) Medication List - Last Reconciled 10/06/23 by Jovani Reese MD blood sugar diagnostic FREESTYLE LITE TEST STRIPS THREE TIMES A DAY blood-glucose meter (FreeStyle Lite Meter kit) use to check blood sugars twice a day tvvovlmeot-kvlvrxgdqrdqa-zzez 50-325-40 mg 1 - 2 tabs PO DAILY PRN cetirizine 10 mg PO BEDTIME 30 days clotrimazole-betamethasone 1-0.05 % 1 appl topical BID 2 weeks fluticasone propionate 50 mcg/actuation (Flonase Allergy Relief) 1 spray intranasal BID 30 days glyburide 5 mg PO DAILY lancets (FreeStyle Lancets) FREESTYLE LANCETS THREE TIMES A DAY lisinopril 10 mg PO DAILY metformin 500 mg PO BID phenazopyridine 100 mg PO TID PRN promethazine 25 mg PO Q6H PRN propranolol 10 mg PO ONCE PRN triamcinolone acetonide 0.5% 1 appl topical TID Tobacco use date assessed: 10/06/23 Fall risk assessment: No Falls in past year Last assessed Fall Risk: 10/06/23 Dental Screening Dental Screen Date: 10/06/23 Did you have a dental visit in the last 12 months?: Yes Did you have a dental problem in the last 6 months where you did not have access to dental care?: No Was dental information given to patient?: Patient has dentist HPI 3 month f/u HPI Details DM HTN and bladder cancer; CA currently in remission after rx; needs new glucometer; bp stable PFSH Medical History Peptic ulcer disease Preop exam for internal medicine Diabetes mellitus with coincident hypertension Diabetes mellitus Hypertension Surgical History History of bladder surgery History of esophagogastroduodenoscopy (EGD) H/O rhinoplasty H/O blepharoplasty History of colonoscopy History of appendectomy Family History Father No problems noted. Mother No problems noted. Social History Housing: House Alcohol intake: never Patient Tobacco Use Status: Never used Tobacco e-Cigarette/Vaping Use: Never Used Second Hand Smoke Exposure: No service: No Current occupational status: retired Cognitive needs: No Hearing needs: No Vision needs: No Questionnaire PHQ-9 Over the last 2 weeks, how often have you been bothered by any of the following problems? 1. Little interest or pleasure in doing things: not at all 2. Feeling down, depressed, or hopeless: not at all 3. Trouble falling or staying asleep, or sleeping too much: not at all 4. Feeling tired or having little energy: not at all 5. Poor appetite or overeating: not at all 6. Feeling bad about yourself - or that you are a failure or have let yourself or your family down: not at all 7. Trouble concentrating on things, such as reading the newspaper or watching television: not at all 8. Moving or speaking so slowly that other people could have noticed. Or the opposite - being so fidgety or restless that you have been moving around a lot more than usual: not at all 9. Thoughts that you would be better off or of hurting yourself in some way: not at all Total score: 0 Depression Screening Interpretation: Negative Depression Screening Done: Yes 95240 - PHQ-9 Billing: Yes Source: Developed by Drs. Manjit Figueredo, Concha Mariano, Yasmani Bertrand and colleagues, with an educational ana from [employer]. Thrive Questionnaire Date Thrive assessed: 10/06/23 I am a: Patient What is your living situation today?: I have a steady place to live Within the past 12 months, did the food you bought not last and you didn't have the money to get more?: Never true Within the past 12 months, did you worry whether your food would run out before you got money to buy more?: Never true Do you have trouble paying for medicines?: No Do you have trouble getting transportation to medical appointments?: No Do you have trouble paying your heating and electricity bill?: No Do you have trouble taking care of your child, family member or friend?: No Do you have trouble with day-to-day activities such as bathing, preparing meals, shopping, managing finances, etc.?: No Are you currently unemployed and looking for a job?: No Are you interested in more education?: No Please select the resources that you would like help with: None THRIVE Score: 0 AUDIT C Alcohol Use Questionnaire (AUDIT-C) 1. How often do you have a drink containing alcohol?: Never 3. How often do you have six or more drinks on one occasion?: Never Total Score: 0 Score Reviewed/Action Taken: Yes VICKY-7 AMB Questionnaire VICKY-7 Date VICKY - 7 assessed: 10/06/23 Feeling nervous, anxious, or on edge: 0 = Not at all Not being able to stop or control worryin = Not at all Worrying too much about different things: 0 = Not at all Trouble relaxin = Not at all Being so restless that it is hard to sit still: 0 = Not at all Becoming easily annoyed or irritable: 0 = Not at all Feeling afraid as if something awful might happen: 0 = Not at all Total VICKY-7 score (0-4 normal; 5-9 mild; 10-14 moderate; 15-21 severe): 0 Source: Developed by Drs. Manjit Figueredo, Concha Mariano, Yasmani Bertrand and colleagues, with an educational ana from [employer]. Review of Systems Const Denies chills, Denies headache(s) and Denies weight loss ENT Denies headache(s) Card Denies chest pain, Denies syncope, Denies irregular heart rhythm and Denies dyspnea Resp Denies chest congestion, Denies cough and Denies dyspnea GI Denies abdominal pain, Denies change in stool character, Denies nausea and Denies vomiting Musc Denies deformity and Denies joint swelling Neuro Denies syncope and Denies headache(s) Physical exam (Primary Care) Vital Signs: Last Vital Signs Pulse 62 10/06/23 10:13 BP 100/50 L 10/06/23 10:13 Pulse Ox 99 10/06/23 10:13 Oxygen Delivery Method Room Air 10/06/23 10:13 BMI result Body Mass Index 26.0 Tobacco/Smoking Status: Tobacco use Status Tobacco use date assessed 10/06/23 10/06/23 10:15 Patient Tobacco Use Status Never used Tobacco 10/06/23 10:15 e-Cigarette/Vaping Use Never Used 10/06/23 10:15 PHQ-9: PHQ-9 Score PHQ-9: Total score 0 10/06/23 10:28 Depression Screening Interpretation: Negative Thrive Assessment: Date of Thrive Assessment Date Thrive assessed 10/06/23 10/06/23 10:15 Const General: cooperative, comfortable, no acute distress and alert Neck Neck: Yes no lymphadenopathy Thyroid: Thyroid normal Resp Effort & Inspection: normal respiratory effort Auscultation: clear to auscultation bilaterally Percussion: percussion normal Cardio Jugular venous distension: no JVD Palpation: normal PMI Rate: regular rate Rhythm: regular rhythm Heart sounds: S1 normal heart sound present and S2 normal heart sound present GI Inspection: Yes normal to inspection Palpation (GI): No hepatosplenomegaly present Skin General skin exam: no rashes or lesions noted Extrem General: Yes no clubbing, cyanosis or edema Results AMB Hemoglobin A1c AMB Hemoglobin A1c 7.3 % Last Edit by FRANCESCO Doan on 10/06/23 10:28 Results Reviewed Results Reviewed: Laboratory Last Values Hgb A1c (Clinic) 7.3 % (4.0-6.0) H 10/06/23 10:15 Assessment and Plan Assessment & Plan (1) Diabetes mellitus with coincident hypertension: Code(s): E11.9 - Type 2 diabetes mellitus without complications; I10 - Essential (primary) hypertension Plan: stable; do labs (2) Hypertension: Code(s): I10 - Essential (primary) hypertension Plan: stable; same rx (3) Bladder cancer: Code(s): C67.9 - Malignant neoplasm of bladder, unspecified Plan: per urology Orders: Orders Lipid Panel Today E78.5 - Hyperlipidemia, unspecified AMB Hemoglobin A1c Today E11.9 - Type 2 diabetes mellitus without complications, I10 - Essential (primary) hypertension Complete Blood Count Auto Diff Today D64.9 - Anemia, unspecified Comprehensive [place]. Panel Fast Today N28.9 - Disorder of kidney and ureter, unspecified Hemoglobin A1c Today R73.9 - Hyperglycemia, unspecified Medications: New cephalexin 250 mg PO Q6H 20 caps 0RF Refilled blood-glucose meter (FreeStyle Lite Meter kit) use to check blood sugars twice a day 1 ea 0RF E11.9 - Type 2 diabetes mellitus without complications Coding Level of Care Code Est Pt Level 4 (50794) Diagnoses Diabetes mellitus with coincident hypertension E11.9; I10 Hypertension I10 Bladder cancer C67.9
== END 2023-10-06 10:39 | disposition home or self-care (01) ==
PROVIDERS: PCP Internal Medicine; Visit Provider Internal Medicine
DX: E11.65 Type 2 diabetes mellitus with hyperglycemia (principal); C67.9 Malignant neoplasm of bladder, unspecified; I10 Essential (primary) hypertension
CPT/HCPCS: 83036; 99214

== ENCOUNTER 2023-12-13 12:50 | Outpatient (REF) | payer MEDICARE, MEDICAID, SELFPAY | END 2023-12-13 12:51 | disposition home or self-care (01) | LOC: HO.HAP 12:50 | PROVIDERS: Visit Provider Internal Medicine | DX: Z46.1 Encounter for fitting and adjustment of hearing aid (principal); H90.3 Sensorineural hearing loss, bilateral | CPT/HCPCS: 92593 ==

== ENCOUNTER 2024-01-02 09:18 | Outpatient (REF) | payer MEDICARE, MEDICAID, SELFPAY ==
[2024-01-02 09:34] LABS: MANUAL DIFF FLAG NO
[2024-01-02 09:56] LABS: Estimated Average Glucose 169 mg/dL; Hemoglobin A1c % 7.5 % (<6.0)
[2024-01-02 10:02] LABS: Basophils Percent Auto 0.4 % (0-2); Eosinophils Absolute Auto 0.3 X10*3/uL (0.0-0.4); Eosinophils Percent Auto 2.8 % (0-4); Hematocrit 32.4 % (42.0-52.0); Imm Gran Abs Auto 0.04 X10*3/uL (0.00-0.03); Imm Gran Pct Auto 0.4 % (0.0-0.4); Lymphocytes Percent Auto 31.2 % (20-40); Mean Corpuscular HGB Conc 31.8 g/dl (31.0-36.0); Mean Corpuscular Volume 78.6 fL (80.0-98.0); Mean Platelet Volume 8.8 fL (9.4-12.4); Monocytes Absolute Auto 0.8 X10*3/uL (0.1-1.2); Monocytes Percent Auto 7.8 % (2-11); Neutrophils Absolute Auto 5.5 x10*3/uL (2.0-8.3); Neutrophils Percent Auto 57.4 % (45-73); Platelet Count 275 X10*3/uL (160-400); Red Blood Count 4.12 X10*6/uL (4.60-5.80); Red Cell Distribution Width 17.4 % (11.0-16.0); White Blood Count 9.7 X10*3/uL (4.8-10.8)
[2024-01-02 10:06] LABS: Hemoglobin 10.3 g/dl (14.0-18.0)
[2024-01-02 11:08] LABS: Creatinine Urine 62.54 mg/dL; Microalbum/Creatinine Ratio Ur 43.1 ug/mg cr (<30)
[2024-01-02 11:29] LABS: Alanine Aminotransferase 9 U/L (0-40); Albumin Level 3.7 g/dL (3.5-5.0); Alkaline Phosphatase 110 U/L (39-117); Anion Gap 14 (12-20); Aspartate Amino Transferase 10 U/L (5-37); Bilirubin Total 0.2 mg/dL (0.0-1.0); Blood Urea Nitrogen 24 mg/dL (9-16); Calcium 9.7 mg/dL (8.4-10.2); Carbon Dioxide 23 mmol/L (22-29); Chloride 108 mmol/L (96-108); Cholesterol 135 mg/dL (<200); Estimated Glomerular Filt Rate > 60; Glucose Fasting 96 mg/dL (60-99); HDL Cholesterol 54 mg/dL (>40); LDL Cholesterol Calculated 73 mg/dL (<100); Potassium 5.1 mmol/L (3.3-5.1); Sodium 140 mmol/L (135-145); Total Protein 7.6 g/dL (6.5-8.0); Triglycerides 42 mg/dL (<150)
[2024-01-02 11:31] LABS: Thyroid Stimulating Hormone 4.38 uIU/mL (0.32-4.0)
== END 2024-01-02 09:19 | disposition home or self-care (01) ==
LOC: HO.LAB 09:18
PROVIDERS: PCP Internal Medicine; Visit Provider Internal Medicine
DX: E03.9 Hypothyroidism, unspecified (principal); E11.69 Type 2 diabetes mellitus with other specified complication; E66.01 Morbid (severe) obesity due to excess calories; N28.9 Disorder of kidney and ureter, unspecified; R73.9 Hyperglycemia, unspecified; E78.5 Hyperlipidemia, unspecified; D64.9 Anemia, unspecified
CPT/HCPCS: 36415; 80053; 80061; 82043; 82570; 83036; 84443; 85025

== ENCOUNTER 2024-02-02 14:24 | Outpatient (AMB) | payer MEDICARE, MEDICAID, SELFPAY ==
[2024-02-02 14:27] VITALS: BP 110/60; PULSE 65; O2SAT 98; BMI 25.2
--- NOTE | 2024-02-02 14:27 | MHC.PC.OV ---
Vital Signs 02/02/24 14:27 Height 5 ft 2 in Weight 138 lb 0.4 oz BMI 25.2 BP 110/60 Blood Pressure Location Lt brachial Position Sitting Pulse 65 Pulse Source Pulse Oximeter Pulse Oximetry (%) 98 Oxygen Delivery Method Room Air Intake Visit Reasons: DM Allergies No Known Allergies [No Known Allergies*] Allergy (Verified 10/06/23 10:14) Medication List - Last Reconciled 02/02/24 by Jovani Reese MD blood sugar diagnostic FREESTYLE LITE TEST STRIPS THREE TIMES A DAY blood-glucose meter (FreeStyle Lite Meter kit) use to check blood sugars twice a day ozoosoqmgr-iaqosnlicppzz-supy 50-325-40 mg 1 - 2 tabs PO DAILY PRN cetirizine 10 mg PO BEDTIME 30 days clotrimazole-betamethasone 1-0.05 % 1 appl topical BID 2 weeks fluticasone propionate 50 mcg/actuation (Flonase Allergy Relief) 1 spray intranasal BID 30 days glyburide 5 mg PO DAILY lancets (FreeStyle Lancets) FREESTYLE LANCETS THREE TIMES A DAY lisinopril 10 mg PO DAILY metformin 500 mg PO BID phenazopyridine 100 mg PO TID PRN promethazine 25 mg PO Q6H PRN propranolol 10 mg PO ONCE PRN triamcinolone acetonide 0.5% 1 appl topical TID Tobacco use date assessed: 10/06/23 Fall risk assessment: No Falls in past year Last assessed Fall Risk: 02/02/24 Dental Screening Dental Screen Date: 10/06/23 HPI DM HPI Details chronic constipation PFSH Medical History Peptic ulcer disease Preop exam for internal medicine Diabetes mellitus with coincident hypertension Diabetes mellitus Hypertension Surgical History History of bladder surgery History of esophagogastroduodenoscopy (EGD) H/O rhinoplasty H/O blepharoplasty History of colonoscopy History of appendectomy Family History Father No problems noted. Mother No problems noted. Social History Housing: House Alcohol intake: never Patient Tobacco Use Status: Never used Tobacco e-Cigarette/Vaping Use: Never Used Second Hand Smoke Exposure: No service: No Current occupational status: retired Cognitive needs: No Hearing needs: No Vision needs: No Questionnaire Thrive Questionnaire Date Thrive assessed: 10/06/23 I am a: Patient What is your living situation today?: I have a steady place to live Within the past 12 months, did the food you bought not last and you didn't have the money to get more?: Never true Within the past 12 months, did you worry whether your food would run out before you got money to buy more?: Never true Do you have trouble paying for medicines?: No Do you have trouble getting transportation to medical appointments?: No Do you have trouble paying your heating and electricity bill?: No Do you have trouble taking care of your child, family member or friend?: No Do you have trouble with day-to-day activities such as bathing, preparing meals, shopping, managing finances, etc.?: No Are you currently unemployed and looking for a job?: No Are you interested in more education?: No Please select the resources that you would like help with: None THRIVE Score: 0 AUDIT C Alcohol Use Questionnaire (AUDIT-C) 1. How often do you have a drink containing alcohol?: Never 3. How often do you have six or more drinks on one occasion?: Never Total Score: 0 Score Reviewed/Action Taken: Yes VICKY-7 AMB Questionnaire VICKY-7 Date VICKY - 7 assessed: 10/06/23 Feeling nervous, anxious, or on edge: 0 = Not at all Not being able to stop or control worryin = Not at all Worrying too much about different things: 0 = Not at all Trouble relaxin = Not at all Being so restless that it is hard to sit still: 0 = Not at all Becoming easily annoyed or irritable: 0 = Not at all Feeling afraid as if something awful might happen: 0 = Not at all Total VICKY-7 score (0-4 normal; 5-9 mild; 10-14 moderate; 15-21 severe): 0 Source: Developed by Drs. Manjit Figueredo, Conhca Mariano, Yasmani Bertrand and colleagues, with an educational ana from [employer]. Review of Systems Const Denies chills, Denies headache(s) and Denies weight loss ENT Denies headache(s) Card Denies chest pain, Denies syncope, Denies irregular heart rhythm and Denies dyspnea Resp Denies chest congestion, Denies cough and Denies dyspnea GI Denies abdominal pain, Denies change in stool character, Denies nausea and Denies vomiting Musc Denies deformity and Denies joint swelling Neuro Denies syncope and Denies headache(s) Physical exam (Primary Care) Vital Signs: Last Vital Signs Pulse 65 02/02/24 14:27 BP 110/60 02/02/24 14:27 Pulse Ox 98 02/02/24 14:27 Oxygen Delivery Method Room Air 02/02/24 14:27 BMI result Body Mass Index 25.2 Tobacco/Smoking Status: Tobacco use Status Tobacco use date assessed 10/06/23 02/02/24 14:30 Patient Tobacco Use Status Never used Tobacco 02/02/24 14:30 e-Cigarette/Vaping Use Never Used 02/02/24 14:30 Thrive Assessment: Date of Thrive Assessment Date Thrive assessed 10/06/23 02/02/24 14:30 Const General: cooperative, comfortable, no acute distress and alert Neck Neck: Yes no lymphadenopathy Thyroid: Thyroid normal Resp Effort & Inspection: normal respiratory effort Auscultation: clear to auscultation bilaterally Percussion: percussion normal Cardio Jugular venous distension: no JVD Palpation: normal PMI Rate: regular rate Rhythm: regular rhythm Heart sounds: S1 normal heart sound present and S2 normal heart sound present GI Inspection: Yes normal to inspection Palpation (GI): No hepatosplenomegaly present Skin General skin exam: no rashes or lesions noted Extrem General: Yes no clubbing, cyanosis or edema Assessment and Plan Assessment & Plan (1) Constipation: Code(s): K59.00 - Constipation, unspecified Plan: fiber supplement twice a day, colace 1 twice a day and if needed Miralax powder as directed on jar. NO ENEMAS Coding Level of Care Code Est Pt Level 3 (54118) Diagnoses Constipation K59.00
== END 2024-02-02 14:50 | disposition home or self-care (01) ==
PROVIDERS: PCP Internal Medicine; Visit Provider Internal Medicine
DX: K59.00 Constipation, unspecified (principal)
CPT/HCPCS: 99213

== ENCOUNTER 2024-04-04 09:35 | Outpatient (AMB) | payer MEDICARE, MEDICAID, SELFPAY ==
[2024-04-04 09:36] VITALS: BP 118/72; PULSE 55; O2SAT 97; BMI 26.0
--- NOTE | 2024-04-04 09:36 | A.OFFPC_ITS ---
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 by: Self / Same As Patient Allergies No Known Allergies [No Known Allergies*] Allergy (Verified 04/04/24 09:37) Medication List - Last Reconciled 04/04/24 by Jovani Reese MD blood sugar diagnostic FREESTYLE LITE TEST STRIPS THREE TIMES A DAY blood-glucose meter (FreeStyle Lite Meter kit) use to check blood sugars twice a day yumyrtlkin-hkpuaohmrvpoc-fyyz 50-325-40 mg 1 - 2 tabs PO DAILY PRN cetirizine 10 mg PO BEDTIME 30 days clotrimazole-betamethasone 1-0.05 % 1 appl topical BID 2 weeks fluticasone propionate 50 mcg/actuation (Flonase Allergy Relief) 1 spray intranasal BID 30 days glyburide 5 mg PO DAILY lancets (FreeStyle Lancets) FREESTYLE LANCETS THREE TIMES A DAY lisinopril 10 mg PO DAILY metformin 500 mg PO BID phenazopyridine 100 mg PO TID PRN promethazine 25 mg PO Q6H PRN propranolol 10 mg PO ONCE PRN triamcinolone acetonide 0.5% 1 appl topical TID Tobacco use date assessed: 10/06/23 Fall risk assessment: No Falls in past year Last assessed Fall Risk: 04/04/24 Dental Screening Dental Screen Date: 10/06/23 HPI Physical Exam HPI Details diabetes hypertension stable; bladder cancer with stoma post op; doing well in remission [facility] Medical History (Updated 04/04/24 @ 12:23 by Jovani Reese MD) Physical exam Peptic ulcer disease Preop exam for internal medicine Diabetes mellitus with coincident hypertension Diabetes mellitus Hypertension Surgical History History of bladder surgery History of esophagogastroduodenoscopy (EGD) H/O rhinoplasty H/O blepharoplasty History of colonoscopy History of appendectomy Family History Father No problems noted. Mother No problems noted. Social History Housing: House Alcohol intake: never Patient Tobacco Use Status: Never used Tobacco Tobacco use type: Cigarette e-Cigarette/Vaping Use: Never Used Second Hand Smoke Exposure: No service: No Current occupational status: retired Cognitive needs: No Hearing needs: No Vision needs: No Questionnaire PHQ-9 Over the last 2 weeks, how often have you been bothered by any of the following problems? 1. Little interest or pleasure in doing things: not at all 2. Feeling down, depressed, or hopeless: not at all 3. Trouble falling or staying asleep, or sleeping too much: not at all 4. Feeling tired or having little energy: not at all 5. Poor appetite or overeating: not at all 6. Feeling bad about yourself - or that you are a failure or have let yourself or your family down: not at all 7. Trouble concentrating on things, such as reading the newspaper or watching television: not at all 8. Moving or speaking so slowly that other people could have noticed. Or the opposite - being so fidgety or restless that you have been moving around a lot more than usual: not at all 9. Thoughts that you would be better off or of hurting yourself in some way: not at all Total score: 0 Depression Screening Interpretation: Negative Depression Screening Done: Yes 25208 - PHQ-9 Billing: Yes Source: Developed by Drs. Manjit Figueredo, Concha Mariano, Yasmani Bertrand and colleagues, with an educational ana from [employer]. Thrive Questionnaire Date Thrive assessed: 10/06/23 AUDIT C Alcohol Use Questionnaire (AUDIT-C) 1. How often do you have a drink containing alcohol?: Never 3. How often do you have six or more drinks on one occasion?: Never Total Score: 0 Score Reviewed/Action Taken: Yes VICKY-7 AMB Questionnaire VICKY-7 Date VICKY - 7 assessed: 10/06/23 Source: Developed by Drs. Manjit Figueredo, Yasmani Delgado and colleagues, with an educational ana from [employer]. Review of Systems Const Denies chills, Denies fatigue, Denies headache(s) and Denies weight loss Eyes Denies change in vision, Denies diplopia and Denies eye pain ENT Denies vertigo, Denies dizziness, Denies headache(s) and Denies nasal discharge Card Denies chest pain, Denies rapid heart rate and Denies dyspnea on exertion Resp Denies chest congestion, Denies cough, Denies pain with cough and Denies dyspnea on exertion GI Denies abdominal pain, Denies hematochezia and Denies change in bowel habits Musc Denies myalgias, Denies arthralgias and Denies joint swelling Skin/Breast Denies lesions and Denies unusual bruising Neuro Denies vertigo, Denies dizziness, Denies headache(s) and Denies focal weakness Endo Denies fatigue Physical exam (Primary Care) Vital Signs: Last Vital Signs Pulse 55 04/04/24 09:36 BP 118/72 04/04/24 09:36 Pulse Ox 97 04/04/24 09:36 Oxygen Delivery Method Room Air 04/04/24 09:36 BMI result Body Mass Index 26.0 Tobacco/Smoking Status: Tobacco use Status Tobacco use date assessed 10/06/23 04/04/24 09:39 Patient Tobacco Use Status Never used Tobacco 04/04/24 09:39 Tobacco use type Cigarette 04/04/24 09:39 e-Cigarette/Vaping Use Never Used 04/04/24 09:39 PHQ-9: PHQ-9 Score PHQ-9: Total score 0 04/04/24 09:39 Depression Screening Interpretation: Negative Thrive Assessment: Date of Thrive Assessment Date Thrive assessed 10/06/23 04/04/24 09:39 Const General: cooperative, healthy appearing and no acute distress Orientation/consciousness: oriented to person, oriented to place and oriented to time [facility] Head: Yes normal to inspection, Yes normocephalic and Yes atraumatic Mouth: Normal oral and palatal mucosa present and tongue normal Throat: Yes posterior oropharynx normal and Yes uvula midline Eyes General: appearance normal, both eyes and all related structures Neck Neck: Yes normal visual inspection, Yes full ROM and Yes no lymphadenopathy Thyroid: Thyroid normal Carotids: normal carotid upstroke Chest Chest palpation & inspection: normal inspection of the chest Resp Effort & Inspection: normal respiratory effort and able to speak in complete sentences Auscultation: clear to auscultation bilaterally Cardio Jugular venous distension: no JVD Palpation: normal PMI Rate: regular rate Rhythm: regular rhythm Heart sounds: S1 normal heart sound present and S2 normal heart sound present GI Inspection: Yes normal to inspection Palpation (GI): Soft to palpation and No hepatosplenomegaly present Auscultation: normal bowel sounds General: Yes no CVA tenderness Back/Spine/Pelvis Back: no CVA tenderness Skin General skin exam: no rashes or lesions noted Neuro General: oriented to person, oriented to place and oriented to time Extrem General: Yes normal to inspection and Yes full ROM Assessment and Plan Assessment & Plan (1) Physical exam: Code(s): Z00.00 - Encounter for general adult medical examination without abnormal findings Plan: stable (2) Diabetes mellitus with coincident hypertension: Code(s): E11.9 - Type 2 diabetes mellitus without complications; I10 - Essential (primary) hypertension Plan: stable; same rx; do labs (3) Hypertension: Code(s): I10 - Essential (primary) hypertension Plan: stable; same rx (4) Bladder cancer: Code(s): C67.9 - Malignant neoplasm of bladder, unspecified Plan: stable; as per urology Orders: Orders Complete Blood Count Auto Diff Today Z13.0 - Encounter for screening for diseases of the blood and blood-forming organs and certain disorders involving the immune mechanism Thyroid Stimulating Hormone Today Z13.29 - Encounter for screening for other suspected endocrine disorder Hemoglobin A1c Today R73.9 - Hyperglycemia, unspecified Comprehensive [place]. Panel Fast Today Z13.9 - Encounter for screening, unspecified Lipid Panel Today Z13.220 - Encounter for screening for lipoid disorders Coding Level of Care Code Est Pt Prev Care >65y(51498) Diagnoses Physical exam Z00.00 Diabetes mellitus with coincident hypertension E11.9; I10 Hypertension I10 Bladder cancer C67.9
== END 2024-04-04 09:58 | disposition home or self-care (01) ==
PROVIDERS: PCP Internal Medicine; Visit Provider Internal Medicine
DX: Z00.00 Encounter for general adult medical examination without abnormal findings (principal); E11.9 Type 2 diabetes mellitus without complications; C67.9 Malignant neoplasm of bladder, unspecified; I10 Essential (primary) hypertension
CPT/HCPCS: 99397

== ENCOUNTER 2024-06-21 09:42 | Outpatient (REF) | payer MEDICARE, MEDICAID, SELFPAY ==
[2024-06-21 10:12] LABS: MANUAL DIFF FLAG NO
[2024-06-21 10:28] LABS: Basophils Percent Auto 0.3 % (0-2); Eosinophils Absolute Auto 0.3 X10*3/uL (0.0-0.4); Eosinophils Percent Auto 3.7 % (0-4); Hematocrit 35.1 % (42.0-52.0); Hemoglobin 11.2 g/dl (14.0-18.0); Imm Gran Abs Auto 0.02 X10*3/uL (0.00-0.03); Imm Gran Pct Auto 0.3 % (0.0-0.4); Lymphocytes Absolute Auto 3.1 X10*3/uL (1.2-4.9); Lymphocytes Percent Auto 39.3 % (20-40); Mean Corpuscular HGB Conc 31.9 g/dl (31.0-36.0); Mean Corpuscular Hemoglobin 27.3 pg (27.0-33.0); Mean Corpuscular Volume 85.6 fL (80.0-98.0); Mean Platelet Volume 8.5 fL (9.4-12.4); Monocytes Absolute Auto 0.7 X10*3/uL (0.1-1.2); Monocytes Percent Auto 8.3 % (2-11); Neutrophils Absolute Auto 3.8 x10*3/uL (2.0-8.3); Neutrophils Percent Auto 48.1 % (45-73); Platelet Count 194 X10*3/uL (160-400); Red Cell Distribution Width 16.1 % (11.0-16.0); White Blood Count 7.9 X10*3/uL (4.8-10.8)
[2024-06-21 10:35] LABS: Estimated Average Glucose 180 mg/dL; Hemoglobin A1C 188.8311 umol/L; Hemoglobin A1c % 7.9 % (<6.0); Total Hemoglobin (HGBA1C) 3015.1749 umol/L
[2024-06-21 11:15] LABS: Alanine Aminotransferase 12 U/L (0-40); Albumin Level 3.6 g/dL (3.5-5.0); Alkaline Phosphatase 115 U/L (39-117); Anion Gap 9 (12-20); Aspartate Amino Transferase 15 U/L (5-37); Bilirubin Total 0.3 mg/dL (0.0-1.0); Blood Urea Nitrogen 25 mg/dL (9-16); Calcium 9.7 mg/dL (8.4-10.2); Carbon Dioxide 27 mmol/L (22-29); Chloride 108 mmol/L (96-108); Cholesterol 151 mg/dL (<200); Estimated Glomerular Filt Rate > 60; Glucose Fasting 127 mg/dL (60-99); HDL Cholesterol 52 mg/dL (>40); LDL Cholesterol Calculated 89 mg/dL (<100); Potassium 4.9 mmol/L (3.3-5.1); Sodium 139 mmol/L (135-145); Total Protein 6.7 g/dL (6.5-8.0); Triglycerides 50 mg/dL (<150)
[2024-06-21 11:22] LABS: Thyroid Stimulating Hormone 4.65 uIU/mL (0.32-4.0)
== END 2024-06-21 09:43 | disposition home or self-care (01) ==
LOC: HO.LAB 09:42
PROVIDERS: PCP Internal Medicine; Visit Provider Internal Medicine
DX: Z13.9 Encounter for screening, unspecified (principal); Z13.0 Encounter for screening for diseases of the blood and blood-forming organs and certain disorders involving the immune mechanism; Z13.29 Encounter for screening for other suspected endocrine disorder; Z13.220 Encounter for screening for lipoid disorders; R73.9 Hyperglycemia, unspecified
CPT/HCPCS: 36415; 80053; 80061; 83036; 84443; 85025

== ENCOUNTER 2024-07-04 11:13 | Outpatient (AMB) | payer MEDICARE, MEDICAID, SELFPAY ==
--- NOTE | 2024-07-04 11:14 | MHC.PC.OV ---
Vital Signs 07/04/24 11:15 Height 5 ft 2 in Weight 153 lb BMI 28.0 BP 118/60 Blood Pressure Location Lt brachial Position Sitting Pulse 62 Pulse Source Pulse Oximeter Pulse Oximetry (%) 97 Oxygen Delivery Method Room Air Intake Visit Reasons: 3 month f/u Typewriter Ribbon Winder Required: Yes Allergies No Known Allergies [No Known Allergies*] Allergy (Verified 07/04/24 11:16) Medication List - Last Reconciled 07/04/24 by Jovani Reese MD blood sugar diagnostic FREESTYLE LITE TEST STRIPS THREE TIMES A DAY blood-glucose meter (FreeStyle Lite Meter kit) use to check blood sugars twice a day kfsgwotnqs-pfpmveaqdwcov-usut 50-325-40 mg 1 - 2 tabs PO DAILY PRN cetirizine 10 mg PO BEDTIME 30 days clotrimazole-betamethasone 1-0.05 % 1 appl topical BID 2 weeks fluticasone propionate 50 mcg/actuation (Flonase Allergy Relief) 1 spray intranasal BID 30 days glyburide 5 mg PO DAILY lancets (FreeStyle Lancets) FREESTYLE LANCETS THREE TIMES A DAY lisinopril 10 mg PO DAILY metformin 500 mg PO BID phenazopyridine 100 mg PO TID PRN promethazine 25 mg PO Q6H PRN propranolol 10 mg PO ONCE PRN triamcinolone acetonide 0.5% 1 appl topical TID Tobacco use date assessed: 10/06/23 Fall risk assessment: No Falls in past year Last assessed Fall Risk: 07/04/24 Dental Screening Dental Screen Date: 10/06/23 HPI 3 month f/u HPI Details DM; compliant; A1C elevated [facility] Medical History (Updated 04/04/24 @ 12:23 by Jovani Reese MD) Physical exam Peptic ulcer disease Preop exam for internal medicine Diabetes mellitus with coincident hypertension Diabetes mellitus Hypertension Surgical History History of bladder surgery History of esophagogastroduodenoscopy (EGD) H/O rhinoplasty H/O blepharoplasty History of colonoscopy History of appendectomy Family History Father No problems noted. Mother No problems noted. Social History (Reviewed 10/06/23 @ 10:23 by GALLITO Doan Housing: House Alcohol intake: never Patient Tobacco Use Status: Never used Tobacco Tobacco use type: Cigarette e-Cigarette/Vaping Use: Never Used Second Hand Smoke Exposure: No service: No Current occupational status: retired Cognitive needs: No Hearing needs: Yes Vision needs: Yes Questionnaire Thrive Questionnaire Date Thrive assessed: 10/06/23 VICKY-7 AMB Questionnaire VICKY-7 Date VICKY - 7 assessed: 10/06/23 Source: Developed by Drs. Manjit Figueredo, Concha Mariano, Yasmani Bertrand and colleagues, with an educational ana from [employer]. Review of Systems Const Denies chills, Denies headache(s) and Denies weight loss ENT Denies headache(s) Card Denies chest pain, Denies syncope, Denies irregular heart rhythm and Denies dyspnea Resp Denies chest congestion, Denies cough and Denies dyspnea GI Denies abdominal pain, Denies change in stool character, Denies nausea and Denies vomiting Musc Denies deformity and Denies joint swelling Neuro Denies syncope and Denies headache(s) Physical exam (Primary Care) Vital Signs: Last Vital Signs Pulse 62 07/04/24 11:15 BP 118/60 07/04/24 11:15 Pulse Ox 97 07/04/24 11:15 Oxygen Delivery Method Room Air 07/04/24 11:15 BMI result Body Mass Index 28.0 Tobacco/Smoking Status: Tobacco use Status Tobacco use date assessed 10/06/23 07/04/24 11:16 Patient Tobacco Use Status Never used Tobacco 07/04/24 11:16 Tobacco use type Cigarette 07/04/24 11:16 e-Cigarette/Vaping Use Never Used 07/04/24 11:16 Thrive Assessment: Date of Thrive Assessment Date Thrive assessed 10/06/23 07/04/24 11:16 Const General: cooperative, comfortable, no acute distress and alert Neck Neck: Yes no lymphadenopathy Thyroid: Thyroid normal Resp Effort & Inspection: normal respiratory effort Auscultation: clear to auscultation bilaterally Percussion: percussion normal Cardio Jugular venous distension: no JVD Palpation: normal PMI Rate: regular rate Rhythm: regular rhythm Heart sounds: S1 normal heart sound present and S2 normal heart sound present GI Inspection: Yes normal to inspection Palpation (GI): No hepatosplenomegaly present Skin General skin exam: no rashes or lesions noted Extrem General: Yes no clubbing, cyanosis or edema Coding Level of Care Code Est Pt Level 3 (93320) Diagnoses Diabetes mellitus E11.9 Assessment & Plan Assessment & Plan (1) Diabetes mellitus: Code(s): E11.9 - Type 2 diabetes mellitus without complications Category: Medical Plan: increase metformin Orders: Orders Glucose Fasting Today R73.9 - Hyperglycemia, unspecified Hemoglobin A1c Today R73.9 - Hyperglycemia, unspecified Medications: New metformin 1,000 mg PO BID 90 tabs 4RF Refilled clotrimazole-betamethasone 1-0.05 % 1 appl topical BID 2 weeks 45 grams 3RF triamcinolone acetonide 0.5% 1 appl topical TID 45 grams 3RF
[2024-07-04 11:15] VITALS: BP 118/60; PULSE 62; O2SAT 97; BMI 28.0
== END 2024-07-04 11:55 | disposition home or self-care (01) ==
PROVIDERS: PCP Internal Medicine; Visit Provider Internal Medicine
DX: E11.9 Type 2 diabetes mellitus without complications (principal)

== ENCOUNTER → 2024-07-04 11:13 | Outpatient (BNVA) | payer MEDICARE, MEDICAID, SELFPAY | PROVIDERS: PCP Internal Medicine; Visit Provider Internal Medicine | DX: E11.9 Type 2 diabetes mellitus without complications (principal) | CPT/HCPCS: 99212 ==

== ENCOUNTER 2024-10-09 10:30 | Outpatient (AMB) | payer MEDICARE, MEDICAID, SELFPAY ==
[2024-10-09 10:37] VITALS: BP 104/58; PULSE 59; O2SAT 96; BMI 28.7
--- NOTE | 2024-10-09 10:37 | A.OFFPC_ITS ---
Vital Signs 10/09/24 10:37 Height 5 ft 2 in Weight 157 lb BMI 28.7 BP 104/58 L Blood Pressure Location Lt brachial Position Sitting Pulse 59 Pulse Source Pulse Oximeter Pulse Oximetry (%) 96 Oxygen Delivery Method Room Air Intake Visit Reasons: 3 month f/u Allergies No Known Allergies [No Known Allergies*] Allergy (Verified 10/09/24 10:38) Medication List - Last Reconciled 10/09/24 by Jovani Reese MD blood sugar diagnostic FREESTYLE LITE TEST STRIPS THREE TIMES A DAY blood-glucose meter (FreeStyle Lite Meter kit) use to check blood sugars twice a day yzicojqppl-qaoetgozttmti-qvfn 50-325-40 mg 1 - 2 tabs PO DAILY PRN cetirizine 10 mg PO BEDTIME 30 days clotrimazole-betamethasone 1-0.05 % 1 appl topical BID 2 weeks fluticasone propionate 50 mcg/actuation (Flonase Allergy Relief) 1 spray intranasal BID 30 days glyburide 5 mg PO DAILY lancets (FreeStyle Lancets) FREESTYLE LANCETS THREE TIMES A DAY lisinopril 10 mg PO DAILY metformin 500 mg PO BID metformin 1,000 mg PO BID phenazopyridine 100 mg PO TID PRN promethazine 25 mg PO Q6H PRN propranolol 10 mg PO ONCE PRN triamcinolone acetonide 0.5% 1 appl topical TID Tobacco use date assessed: 10/09/24 Fall risk assessment: No Falls in past year Last assessed Fall Risk: 10/09/24 Dental Screening Dental Screen Date: 10/09/24 Did you have a dental visit in the last 12 months?: No Did you have a dental problem in the last 6 months where you did not have access to dental care?: No Was dental information given to patient?: Patient has dentist HPI 3 month f/u HPI Details DM in good control; compliant [facility] Medical History (Updated 04/04/24 @ 12:23 by Jovani Reese MD) Physical exam Peptic ulcer disease Preop exam for internal medicine Diabetes mellitus with coincident hypertension Diabetes mellitus Hypertension Surgical History History of bladder surgery History of esophagogastroduodenoscopy (EGD) H/O rhinoplasty H/O blepharoplasty History of colonoscopy History of appendectomy Family History Father No problems noted. Mother No problems noted. Social History Housing: House Alcohol intake: never Patient Tobacco Use Status: Never used Tobacco Tobacco use type: Cigarette e-Cigarette/Vaping Use: Never Used Second Hand Smoke Exposure: No service: No Current occupational status: retired Cognitive needs: No Hearing needs: Yes Vision needs: Yes Questionnaire PHQ-9 Over the last 2 weeks, how often have you been bothered by any of the following problems? 1. Little interest or pleasure in doing things: not at all 2. Feeling down, depressed, or hopeless: not at all 3. Trouble falling or staying asleep, or sleeping too much: not at all 4. Feeling tired or having little energy: not at all 5. Poor appetite or overeating: not at all 6. Feeling bad about yourself - or that you are a failure or have let yourself or your family down: not at all 7. Trouble concentrating on things, such as reading the newspaper or watching television: not at all 8. Moving or speaking so slowly that other people could have noticed. Or the opposite - being so fidgety or restless that you have been moving around a lot more than usual: not at all 9. Thoughts that you would be better off or of hurting yourself in some way: not at all Total score: 0 Depression Screening Interpretation: Negative Depression Screening Done: Yes 19568 - PHQ-9 Billing: Yes Source: Developed by Drs. Manjit Figueredo, Concha Mariano, Yasmani Bertrand and colleagues, with an educational ana from [employer]. Thrive Questionnaire Date Thrive assessed: 10/09/24 I am a: Patient What is your living situation today?: I have a steady place to live Within the past 12 months, did the food you bought not last and you didn't have the money to get more?: Never true Within the past 12 months, did you worry whether your food would run out before you got money to buy more?: Never true Do you have trouble paying for medicines?: No Do you have trouble getting transportation to medical appointments?: No Do you have trouble paying your heating and electricity bill?: No Do you have trouble taking care of your child, family member or friend?: No Do you have trouble with day-to-day activities such as bathing, preparing meals, shopping, managing finances, etc.?: No Are you currently unemployed and looking for a job?: No Are you interested in more education?: No Currently or been in a relationship where the following occur: No concerns reported THRIVE Score: 0 AUDIT C Alcohol Use Questionnaire (AUDIT-C) 1. How often do you have a drink containing alcohol?: Never 3. How often do you have six or more drinks on one occasion?: Never Total Score: 0 Score Reviewed/Action Taken: Yes VICKY-7 AMB Questionnaire VICKY-7 Date VICKY - 7 assessed: 10/09/24 Feeling nervous, anxious, or on edge: 0 = Not at all Not being able to stop or control worryin = Not at all Worrying too much about different things: 0 = Not at all Trouble relaxin = Not at all Being so restless that it is hard to sit still: 0 = Not at all Becoming easily annoyed or irritable: 0 = Not at all Feeling afraid as if something awful might happen: 0 = Not at all Total VICKY-7 score (0-4 normal; 5-9 mild; 10-14 moderate; 15-21 severe): 0 Source: Developed by Drs. Manjit Figueredo, Concha Mariano, Yasmani Bertrand and colleagues, with an educational ana from [employer]. Review of Systems Const Denies chills, Denies headache(s) and Denies weight loss ENT Denies headache(s) Card Denies chest pain, Denies syncope, Denies irregular heart rhythm and Denies dyspnea Resp Denies chest congestion, Denies cough and Denies dyspnea GI Denies abdominal pain, Denies change in stool character, Denies nausea and Denies vomiting Musc Denies deformity and Denies joint swelling Neuro Denies syncope and Denies headache(s) Physical exam (Primary Care) Vital Signs: Last Vital Signs Pulse 59 10/09/24 10:37 BP 104/58 L 10/09/24 10:37 Pulse Ox 96 10/09/24 10:37 Oxygen Delivery Method Room Air 10/09/24 10:37 BMI result Body Mass Index 28.7 Tobacco/Smoking Status: Tobacco use Status Tobacco use date assessed 10/09/24 10/09/24 10:42 Patient Tobacco Use Status Never used Tobacco 10/09/24 10:42 Tobacco use type Cigarette 10/09/24 10:42 e-Cigarette/Vaping Use Never Used 10/09/24 10:42 PHQ-9: PHQ-9 Score PHQ-9: Total score 0 10/09/24 10:42 Depression Screening Interpretation: Negative Thrive Assessment: Date of Thrive Assessment Date Thrive assessed 10/09/24 10/09/24 10:42 Currently or been in a relationship where the following occur: No concerns reported Const General: cooperative, comfortable, no acute distress and alert Neck Neck: Yes no lymphadenopathy Thyroid: Thyroid normal Resp Effort & Inspection: normal respiratory effort Auscultation: clear to auscultation bilaterally Percussion: percussion normal Cardio Jugular venous distension: no JVD Palpation: normal PMI Rate: regular rate Rhythm: regular rhythm Heart sounds: S1 normal heart sound present and S2 normal heart sound present GI Inspection: Yes normal to inspection Palpation (GI): No hepatosplenomegaly present Skin General skin exam: no rashes or lesions noted Extrem General: Yes no clubbing, cyanosis or edema Coding Level of Care Code Est Pt Level 3 (71472) Diagnoses Diabetes mellitus with coincident hypertension E11.9; I10 Additional Codes PHQ-9 - 38754 - PHQ-9 Billing: Yes ([id number]) Assessment & Plan Assessment & Plan (1) Diabetes mellitus with coincident hypertension: Code(s): E11.9 - Type 2 diabetes mellitus without complications; I10 - Essential (primary) hypertension Category: Medical Plan: stable; same rx
== END 2024-10-09 10:56 | disposition home or self-care (01) ==
PROVIDERS: PCP Internal Medicine; Visit Provider Internal Medicine
DX: E11.9 Type 2 diabetes mellitus without complications (principal); I10 Essential (primary) hypertension

== ENCOUNTER → 2024-10-09 10:30 | Outpatient (BNVA) | payer MEDICARE, MEDICAID, SELFPAY | PROVIDERS: PCP Internal Medicine; Visit Provider Internal Medicine | DX: E11.9 Type 2 diabetes mellitus without complications (principal); I10 Essential (primary) hypertension | CPT/HCPCS: 96127; 99212 ==

== ENCOUNTER 2024-11-13 11:01 | Outpatient (REF) | payer MEDICARE, MEDICAID, SELFPAY ==
--- NOTE | 2024-11-13 12:21 | MHC.AU.HA3 ---
Hearing Instrument Follow-Up- Binaural Date of Visit: 11/13/24 Right Ear: Make, Model, Color, Serial Number: [id number] Sales Contracts Analyst Repair Warranty: 11/09/2023 Sales Contracts Analyst Loss and Damage Warranty: [facility] Service Plan: Battery Size: Rechargeable Track Walker/Slim Tube: 2 M Earmold/Dome/CShell/SlimTip:sm vented Type of Wax Guard: Cerushield Dispensed By: [facility] Date of Fittin08/27/2020 Left Ear: Frankie, Model, Color, Serial Number: [id number] Sales Contracts Analyst Repair Warranty: 11/09/2023 Sales Contracts Analyst Loss and Damage Warranty: [facility] Service Plan: Battery Size: Rechargeable Track Walker/Slim Tube: 2 M Earmold/Dome/CShell/SlimTip: sm vented Type of Wax Guard: Cerushield Dispensed By: [facility] Date of Fittin08/27/2020 Follow-Up Summary: Slade is here with his daughter, reports intermittent hearing aids. Notes renal technician occasionally red. States he struggles to hear higher voices. Had hearing test at ENT last week but forgot to bring it with him. Cleaned aids, both receivers needed to be replaced. Replaced domes. Cleaned mics. Ran through dehumidifier. Increased gain on both devices. Replaced renal technician plug. Patient inquired about new devices, advised he will be eligible in August and will need updated hearing test before then. Recommendations: Recommendations: Patient will call if problems persist. Diagnosis Code(s): Primary Diagnosis: H90.3 Bilateral Sensorineural Hearing Loss Signature: Provider: Bryan Sqeueira, [facility]
--- OUTSIDE RECORDS SUMMARY | 2024-11-13 13:31 | XMS_ITS | Encounter Summary ---
Author Organization [facility] Address [address] [place] [address] Care Team Providers Care Roll Former Name Role Phone Unavailable Primary Care Provider Unavailabl e Reason for Visit * Reason Comments Dental Pain I have pain when I d rink something cold Encounter Details Date Type Department Care Team (Late st Contact Info) Description 10/24/2024 1:00 PM EST Office Visit [facility] [address] [place] [phone] Linda Dunne, CHARAN [address] [place] [address] Symptomatic irreversible pulpitis (Primary Dx) Social History Tobacco Use Types Packs/Day Years Used Date Smoking Tobacco: Never Smokeless Tobacco: Never Sex and Gender Information Value Date Recorded Sex Assigned at Not on file Legal Sex Male 7:06 AM PDT Gender Identity Not on file Sexual Orientation Not on file documented as of this encounter Last Filed Vital Signs Vital Sign Reading Time Taken Comments Blood Pressure 124/74 10/24/2024 3:10 PM EST Pulse 57 10/24/2024 3:10 PM EST Temperature - - Respiratory Rate - - Oxygen Saturation - - Inhaled Oxygen Concentration - - Weight - - Height - - Body Mass Index - - documented in this encounter Progress Notes * Linda Alonso, CHARAN - 10/24/2024 3:08 PM EST RCT Treatment Slade Lepe, 74 year old male, presents alone for RCT Treatment on tooth #19. Dredging Inspector: No RMHx: Yes Vitals: Vitals: 10/24/24 1510 BP: 124/74 Pulse: 57 Chief Complaint: Chief Complaint Patient presents with Dental Pain I have pain when I drink something cold Tooth #: 19 Assessment: Visual Inspection: Amalgam on mesial, cavity on occlusal surface and cotton inside cavity Palpation: Normal Percussion: Positive Endo Ice Test: Positive Rad Findings: Cavity close to pulp chamber Diagnosis: Etiopathogenic DX: Large cavity Pulpal DX: Symptomatic irreversible pulpitis Periapical DX: Symptomatic apical periodontitis Plan: Endodontic treatment tooth #19 PARQ: Patient confirms informed consent using PARQ, reviewed RCT consent and signed. PROCEDURE: Anesthetics Topical Anesthetic: 20% topical benzocaine Local Anesthetic: 2 carpule 2% lidocaine with 1:100k epi Injection administered: Infiltration, IA Isolation and access: Rubber Dam Isolation: Yes Access: temp fill and cotton pellet removed, canal(s) navigated with hand files, pulp tissue removed Instrumentation and obturation: - Cleaned and shaped with hand and rotary files system: Protaper next - Irrigated/Lubricated with: NaOCl - Activation of irrigant: No - Dried with paper points - Intracanal medication in this appointment: No - Obturation technique: Hydraulic, single cone - Obturation sealer: Zenseal - Accidents: None Tooth #: 19 Canal Working Length Reference Point Master Apical File Master Cone D 23 DB Cusp X3 X3 MB 23 mm MB Cusp X2 X2 ML 22 mm ML Cusp X2 X2 Desobturation for dental post: No Taoism: Pulp chamber was cleaned, mai and temporary material Cavit was placed and occlusion was verified. Instructions: POIG: verbal Pt informed: confucianism is temporary, need to return for permanent confucianism DAVIDE, a crown is the ideal confucianism for this tooth Pain Management: OTC Acetaminophen 500mg q6h Referral: No orders of the following type(s) were placed in this encounter: Referral. Rx: No orders of the defined types were placed in this encounter. Behavior: Excellent This Visit: Dental procedures in this visit D3330 - ENDODONTIC THERAPY MOLAR TOOTH 19 (Completed) Service provider: Linda Alonso DMD Billing provider: Linda Alonso DMD D0230 - INTRAORAL - PERIAPICAL EACH ADD RADIOGRAPH IMAGE (Completed) Service provider: Linda Alonso DMD Billing provider: Linda Alonso DMD D9450 - CASE PRESENTATION SUBS DTL & EXTENSIVE TX PLN (Completed) Service provider: Linda Alonso DMD Billing provider: Linda Alonso DMD Next Visit: Hygiene / Build core #19 DA: Catrina documented in this encounter Miscellaneous Notes * Patient Instructions - Linda Alonso DMD - 10/24/2024 3:02 PM EST If you are not able to keep your appointment please call 24-48 hours before your appointment to cancel or reschedule. documented in this encounter Plan of Treatment Upcoming Encounters Date Type Department Care Team (Late st Contact Info) Description 11/15/2024 2:00 PM EDT Office Visit [address] [phone] Funmi Muir, CHARAN [address] [place] [address] 11/27/2024 11:00 AM EDT Office Visit [address] [phone] Funmi Muir, CHARAN [address] [place] [address] 12/17/2024 11:00 AM EDT Office Visit [facility] [address] [place] [phone] Jose Alfredo Gale RHD [address] [place] [address] documented as of this encounter Procedures Procedure Name Priority Date/Time Associated Diagnosis Comments CASE PRESENTATION SUBS DTL & EXTENSIVE TX PLN Routine 10/24/2024 1:00 PM EST Symptomatic irreversible pulpitis 19 ENDODONTIC THERAPY MOLAR TOOTH Routine 10/24/2024 1:00 PM EST Symptomatic irreversible pulpitis INTRAORAL - PERIAPICAL EACH ADD RADIOGRAPH IMAGE Routine 10/24/2024 1:00 PM EST Symptomatic irreversible pulpitis documented in this encounter Visit Diagnoses Diagnosis Symptomatic irreversible pulpitis- Primary documented in this encounter
--- OUTSIDE RECORDS SUMMARY | 2024-11-13 13:31 | XMS_ITS | Encounter Summary ---
Author Organization [facility] Address [address] [place] [address] Care Team Providers Care Precision Lathe Operator Name Role Phone Unavailable Primary Care Provider Unavailabl e Reason for Visit * Reason Comments Dental Pain LL Encounter Details Date Type Department Care Team (Late st Contact Info) Description 10/24/2024 11:00 AM EST Office Visit [facility] [address] [place] [phone] Jose Alfredo Gale RHD [address] [place], [place] [phone] Symptomatic irreversible pulpitis (Primary Dx) Social History Tobacco Use Types Packs/Day Years Used Date Smoking Tobacco: Never Smokeless Tobacco: Never Tobacco Cessation:Counseling Given: Not Answered Sex and Gender Information Value Date Recorded Sex Assigned at Not on file Legal Sex Male 7:06 AM PDT Gender Identity Not on file Sexual Orientation Not on file documented as of this encounter Last Filed Vital Signs Vital Sign Reading Time Taken Comments Blood Pressure 144/71 10/24/2024 11:38 AM EST Pulse 65 10/24/2024 11:38 AM EST Temperature - - Respiratory Rate - - Oxygen Saturation - - Inhaled Oxygen Concentration - - Weight - - Height - - Body Mass Index - - documented in this encounter Progress Notes * FIDENCIO Esparza - 10/24/2024 11:59 AM EST Limited Exam Subjective Slade Lepe, 74 year old male, presents with his for limited exam of LL. 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 Objective RMHx: Yes Vitals: Vitals: 10/24/24 1138 BP: (!) 144/71 Pulse: 65 BP Site: Left Arm BP Position: Sitting BP Cuff Size: Regular Adult Pain Score: 8 Endo Status: not endo treated, pt was told that he needs RCT by another dentist, it bothers him for2 weeks already Tooth # Palpation Percussion Endo Ice EPT Mobility Probing 19 + + Not checked Assessment Dx: K04.02 Symptomatic irreversible pulpitis (primary encounter diagnosis) Dx Details (Clinical Decision-Making): deep caries on #19, RCT is recommended Plan 1) RCT #19 Informed Consent/PARQ (Procedure, Alternatives, Risks, Questions): Discussed limited exam findings and treatment needs, questions answered. Patient confirms informed consent, verbalizes understandingof limited exam findings and treatment plan. Pt informed today's exam was a limited exam, and comprehensive exam was not done today. Treatment needs may exist in other areas which were not examined today. Advised patient seek comprehensive care and return for evaluation of other areas as soon as possible. Dental procedures in this visit D0140 - LIMITED ORAL EVALUATION - PROBLEM FOCUSED (Completed) Service provider: FIDENCIO Esparza Billing provider: Mainor Soliz DDS D0220 - INTRAORAL - PERIAPICAL FIRST RADIOGRAPHIC IMAGE (Completed) Service provider: FIDENCIO Esparza Billing provider: Mainor Soliz DDS Treatment Completed: Limited exam Referral: No orders of the following type(s) were placed in this encounter: Referral. Rx: No orders of the defined types were placed in this encounter. Behavior: Compliant DA: Jose Alfredo DAVIS [place]: Treatment - RCT documented in this encounter Plan of Treatment Upcoming Encounters Date Type Department Care Team (Late st Contact Info) Description 11/15/2024 2:00 PM EDT Office Visit [facility] [address] [place] [phone] Funmi Muir DMD [address] [place] [address] 11/27/2024 11:00 AM EDT Office Visit [facility] [address] [place] [phone] Funmi Muir DMD [address] [place] [address] 12/17/2024 11:00 AM EDT Office Visit [facility] [address] [place] [phone] Jose Alfredo Gale RHD [address] [place] [address] documented as of this encounter Procedures Procedure Name Priority Date/Time Associated Diagnosis Comments INTRAORAL - PERIAPICAL FIRST RADIOGRAPHIC IMAGE Routine 10/24/2024 11:00 AM EST Symptomatic irreversible pulpitis LIMITED ORAL EVALUATION - PROBLEM FOCUSED Routine 10/24/2024 11:00 AM EST Symptomatic irreversible pulpitis documented in this encounter Visit Diagnoses Diagnosis Symptomatic irreversible pulpitis- Primary documented in this encounter
--- OUTSIDE RECORDS SUMMARY | 2024-11-13 13:31 | XMS_ITS | Encounter Summary ---
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 Name Role Phone Unavailable Primary Care Provider Unavailabl e Encounter Details Date Type Department Care Team (Late st Contact Info) Description 11/07/2024 1:40 PM EDT Office Visit [facility] [address] [place] [phone] Funmi Muir, CHARAN [address] [place], [place] [phone] Caries (Primary Dx) Social History Tobacco Use Types Packs/Day Years Used Date Smoking Tobacco: Never Smokeless Tobacco: Never Sex and Gender Information Value Date Recorded Sex Assigned at Not on file Legal Sex Male 7:06 AM PDT Gender Identity Not on file Sexual Orientation Not on file documented as of this encounter Last Filed Vital Signs Vital Sign Reading Time Taken Comments Blood Pressure 128/81 11/07/2024 1:47 PM EDT Pulse 63 11/07/2024 1:47 PM EDT Temperature - - Respiratory Rate - - Oxygen Saturation - - Inhaled Oxygen Concentration - - Weight - - Height - - Body Mass Index - - documented in this encounter Progress Notes * Funmi Muir DMD - 11/07/2024 1:57 PM EDT Restorative Subjective Slade Gayathrifei, 74 year old male, presents alone for restorative. 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 Severe plaque and BOP. Poor OH. Plan Informed Consent/PARQ (Procedure, Alternatives, Risks, Questions): Patient confirms informed consent using PARQ. Dental procedures in this visit D2331 - RESIN-BASED COMPOSITE TWO SURFACES ANTERIOR 22 MF (Completed) Service provider: Funmi Muir DMD Billing provider: Funmi Muir DMD [id number] - CASE PRESENTATION SUBS DTL & EXTENSIVE TX PLN (Completed) Service provider: Funmi Muir DMD Billing provider: Funmi Muir DMD Topical Anesthetic: 20% topical benzocaine Local Anesthetic: 1/2 carpule 4% articaine (Septocaine) with 1:100k epi Injection administered: Infiltration Isolation used: Cotton roll Excavation of caries completed. No pulpal involvement Details: restored with GI, polished. Shade: A2. Contour/Rwandan: Yes Verified contacts and floss Post-Op Information Given: verbal Referral: No orders of the following type(s) were placed in this encounter: Referral. Rx: No orders of the defined types were placed in this encounter. Behavior: Excellent DA: Alesia Harmon NV: Treatment - Restorative x #19 PPC/core build up documented in this encounter Miscellaneous Notes * Patient Instructions - Funmi Muir DMD - 11/07/2024 1:56 PM EDT If you are not able to keep your appointment please call 24-48 hours before your appointment to cancel or reschedule. documented in this encounter Plan of Treatment Upcoming Encounters Date Type Department Care Team (Late st Contact Info) Description 11/15/2024 2:00 PM EDT Office Visit [address] [phone] Funmi Muir DMD [address] [place] [address] 11/27/2024 11:00 AM EDT Office Visit [address] [phone] Funmi Muir DMD [address] [place] [address] 12/17/2024 11:00 AM EDT Office Visit [facility] [address] [place] [phone] Jose Alfredo Gale RHD [address] [place] [address] Scheduled Orders Name Type Priority Associated Diagnoses Order Schedule 19 PREFABRICATED POST AND CORE IN ADDITION TO CROWN Dental Procedures Routine 1 Occurrences starting 11/07/2024 documented as of this encounter Procedures Procedure Name Priority Date/Time Associated Diagnosis Comments CASE PRESENTATION SUBS DTL & EXTENSIVE TX PLN Routine 11/07/2024 1:40 PM EDT Caries 22 MF RESIN-BASED COMPOSITE TWO SURFACES ANTERIOR Routine 11/07/2024 1:40 PM EDT Caries documented in this encounter Visit Diagnoses Diagnosis Caries- Primary Unspecified dental caries documented in this encounter
--- OUTSIDE RECORDS SUMMARY | 2024-11-13 13:31 | XMS_ITS | Encounter Summary ---
Author Organization [facility] Address [address] [place] [address] Care Team Providers Care Automotive Service Manager Name Role Phone Unavailable Primary Care Provider Unavailabl e Reason for Visit * Reason Comments Dental Hygiene/ Preventive Dental Diagnostic Exam Patient want to s appt for crown #19. It was explained to the patient that we would llillke to examine the rest of his teeth now that he is no longer in pain and then we can schedule any tx as needed Encounter Details Date Type Department Care Team (Late st Contact Info) Description 10/26/2024 2:20 PM EST Office Visit [facility] [address] [place] [phone] Debbie Smallwood [facility] [place] [address] Encounter for dental examination (Primary Dx); Caries Social History Tobacco Use Types Packs/Day Years Used Date Smoking Tobacco: Never Smokeless Tobacco: Never Sex and Gender Information Value Date Recorded Sex Assigned at Not on file Legal Sex Male 7:06 AM PDT Gender Identity Not on file Sexual Orientation Not on file documented as of this encounter Progress Notes * Debbie Smallwood - 10/26/2024 4:30 PM EST Periodic Exam, FMX S: ID: 74 year old male CC: Chief Complaint Patient presents with ??? Dental Hygiene/ Preventive ??? Dental Diagnostic Exam Patient want to martir appt for crown #19. It was explained to the patient that we would llillke to examine the rest of his teeth now that he is no longer in pain and then we can schedule any tx as needed MH: No past medical history on file. There are no active problems to display for this patient. Medications: No current outpatient medications on file. No current facility-administered medications for this visit. Allergies: Patient has no known allergies. Vitals: There were no vitals filed for this visit. O: EXTRAORAL EXAM Extraoral/Head/Neck: WNL TMJ: WNL INTRAORAL EXAM Occlusion (right): Class I Occlusion (left): Class I Soft Tissue/Oral Cancer Screening: WNL Plaque: Generalized Moderate Calculus: Generalized Moderate Gingiva: Gingival recession, Rolled margins, bulbous gingiva, and Soft and spongy texture OH: Poor Bone Level: Generalized mild bone loss Perio Charting: Will complete at Prophy visit-not enough time Radiographic and clinical oral evaluation Dr. Springer/Consulted with Dr. Muir re: crown on #30 A: Perio Dx: Will have perio chart at AL gen mild bone loss radiographicaly Dx: Tx Plan: Michael 4MO, 5DO, 8DL, 13DO, 19Crown, 22MF, 24DF, 30B; Monitor PAP on 25; Prophy and perio chart grisel P: Discussed exam findings, recommended treatment plan options and all risks, benefits and alternatives including no treatment. Patient was given the opportunity to ask questions. All questions were answered. Patient confirms informed consent and verbalizes understanding of exam findings and treatment plan. Referrals: No orders of the following type(s) were placed in this encounter: Referral. Rx: No orders of the defined types were placed in this encounter. Medical Lab Specialist: Alesia mcfadden NV: [facility] Roy/Dr. Springer/Dr. Muir/ Alesia ZAMAN documented in this encounter Plan of Treatment Upcoming Encounters Date Type Department Care Team (Late st Contact Info) Description 11/15/2024 2:00 PM EDT Office Visit [address] [phone] Funmi Muir DMD [address] [place] [address] 11/27/2024 11:00 AM EDT Office Visit [address] [phone] Funmi Muir DMD [address] [place] [address] 12/17/2024 11:00 AM EDT Office Visit [facility] [address] [place] [phone] Baljinder Jose AlfredoFIDENCIO [address] [place] [address] Scheduled Orders Name Type Priority Associated Diagnoses Order Schedule ORAL HYGIENE INSTRUCTIONS Dental Procedures Routine 1 Occurrences starting 10/26/2024 NUTRITIONAL COUNSELING CONTROL OF DENTAL DISEASE Dental Procedures Routine 1 Occurrences starting 10/26/2024 COMP PERIODONTAL EVALUATION - NEW/EST PATIENT Dental Procedures Routine 1 Occurrences starting 10/26/2024 PROPHYLAXIS - ADULT Dental Procedures Routine 1 Occurrences starting 10/26/2024 documented as of this encounter Procedures Procedure Name Priority Date/Time Associated Diagnosis Comments ORAL CANCER SCREENING Routine 10/26/2024 2:20 PM EST Caries Encounter for dental examination DENTAL CASE MANAGEMENT - MOTIVATIONAL INTV Routine 10/26/2024 2:20 PM EST Caries Encounter for dental examination CARIES RISK ASSESSMENT & DOC FINDING HIGH RISK Routine 10/26/2024 2:20 PM EST Caries Encounter for dental examination CASE PRESENTATION SUBS DTL & EXTENSIVE TX PLN Routine 10/26/2024 2:20 PM EST Encounter for dental examination INTRAORAL - COMP SERIES OF RADIOGRAPHIC IMAGES Routine 10/26/2024 2:20 PM EST Caries Encounter for dental examination PERIODIC ORAL EVALUATION ESTABLISHED PATIENT Routine 10/26/2024 2:20 PM EST Caries Encounter for dental examination 31 ROOT CANAL - WISDOM (NO BILLABLE) Routine 10/26/2024 12:00 AM EST 27 ROOT CANAL - WISDOM (NO BILLABLE) Routine 10/26/2024 12:00 AM EST 25 ROOT CANAL - WISDOM (NO BILLABLE) Routine 10/26/2024 12:00 AM EST 23 ROOT CANAL - WISDOM (NO BILLABLE) Routine 10/26/2024 12:00 AM EST 20 ROOT CANAL - WISDOM (NO BILLABLE) Routine 10/26/2024 12:00 AM EST 21 DO COMPOSITE - WISDOM (NON BILLABLE) Routine 10/26/2024 12:00 AM EST 22 M COMPOSITE - WISDOM (NON BILLABLE) Routine 10/26/2024 12:00 AM EST 24 D COMPOSITE - WISDOM (NON BILLABLE) Routine 10/26/2024 12:00 AM EST 24 M COMPOSITE - WISDOM (NON BILLABLE) Routine 10/26/2024 12:00 AM EST 26 M COMPOSITE - WISDOM (NON BILLABLE) Routine 10/26/2024 12:00 AM EST 11 D COMPOSITE - WISDOM (NON BILLABLE) Routine 10/26/2024 12:00 AM EST 9 D COMPOSITE - WISDOM (NON BILLABLE) Routine 10/26/2024 12:00 AM EST 8 D COMPOSITE - WISDOM (NON BILLABLE) Routine 10/26/2024 12:00 AM EST 6 D COMPOSITE - WISDOM (NON BILLABLE) Routine 10/26/2024 12:00 AM EST 5 DO COMPOSITE - WISDOM (NON BILLABLE) Routine 10/26/2024 12:00 AM EST 4 MO COMPOSITE - WISDOM (NON BILLABLE) Routine 10/26/2024 12:00 AM EST 29 M COMPOSITE - WISDOM (NON BILLABLE) Routine 10/26/2024 12:00 AM EST 32 O COMPOSITE - WISDOM (NON BILLABLE) Routine 10/26/2024 12:00 AM EST 2 DO COMPOSITE - WISDOM (NON BILLABLE) Routine 10/26/2024 12:00 AM EST 31 DO COMPOSITE - WISDOM (NON BILLABLE) Routine 10/26/2024 12:00 AM EST 15 MOD AMALGAM - WISDOM (NON BILLABLE) Routine 10/26/2024 12:00 AM EST 14 MOD AMALGAM - WISDOM (NON BILLABLE) Routine 10/26/2024 12:00 AM EST 19 B AMALGAM - WISDOM (NON BILLABLE) Routine 10/26/2024 12:00 AM EST 28 DO AMALGAM - WISDOM (NON BILLABLE) Routine 10/26/2024 12:00 AM EST 30 MO AMALGAM - WISDOM (NON BILLABLE) Routine 10/26/2024 12:00 AM EST 29 DO AMALGAM - WISDOM (NON BILLABLE) Routine 10/26/2024 12:00 AM EST 20 CROWN - PORCELAIN FUSED PREDOMINANTLY BASE METAL Routine 10/26/2024 12:00 AM EST 23 CROWN - PORCELAIN FUSED PREDOMINANTLY BASE METAL Routine 10/26/2024 12:00 AM EST 25 CROWN - PORCELAIN FUSED PREDOMINANTLY BASE METAL Routine 10/26/2024 12:00 AM EST 27 CROWN - PORCELAIN FUSED PREDOMINANTLY BASE METAL Routine 10/26/2024 12:00 AM EST documented in this encounter Visit Diagnoses Diagnosis Encounter for dental examination- Primary Dental examination Caries Unspecified dental caries documented in this encounter
--- OUTSIDE RECORDS SUMMARY | 2024-11-13 13:31 | XMS_ITS | Clinical Summary ---
Author Organization [facility] Address [address] [place] [address] Care Team Providers Care Line Patrolman Name Role Phone Unavailable Primary Care Provider Unavailabl e Source Comments PLEASE NOTE, if this patient is a minor, it may be UNLAWFUL to discuss sensitive information that is contained in these records (such as FAMILY PLANNING, MENTAL HEALTH or SUBSTANCE ABUSE) with the minor patient's parent or other person without the patient's specific authorization.[facility] Allergies No known active allergies Medications No known medications Active Problems No known active problems Encounters Date Type Department Care Team Description 11/07/2024 1:40 PM EDT Office Visit [address] [phone] Funmi Muir DMD Caries (Primary Dx) 10/26/2024 2:20 PM EST Office Visit [facility] [address] [place] [phone] Debbie Smallwood Encounter for dental examination (Primary Dx); Caries 10/24/2024 1:00 PM EST Office Visit [address] [phone] Linda Dunne DMD Symptomatic irreversible pulpitis (Primary Dx) 10/24/2024 11:00 AM EST Office Visit [facility] [address] [place] [phone] Jose Alfredo Gale, RHRenny Symptomatic irreversible pulpitis (Primary Dx) from Last 3 Months Social History Tobacco Use Types Packs/Day Years Used Date Smoking Tobacco: Never Smokeless Tobacco: Never Tobacco Cessation:Counseling Given: Not Answered Sex and Gender Information Value Date Recorded Sex Assigned at Not on file Legal Sex Male 7:06 AM PDT Gender Identity Not on file Sexual Orientation Not on file Last Filed Vital Signs Vital Sign Reading Time Taken Comments Blood Pressure 128/81 11/07/2024 1:47 PM EDT Pulse 63 11/07/2024 1:47 PM EDT Temperature - - Respiratory Rate - - Oxygen Saturation - - Inhaled Oxygen Concentration - - Weight - - Height - - Body Mass Index - - Plan of Treatment Upcoming Encounters Date Type Department Care Team (Late st Contact Info) Description 11/15/2024 2:00 PM EDT Office Visit [facility] [address] [place] [phone] Funmi Muir, DMD [address] [place] [address] 11/27/2024 11:00 AM EDT Office Visit [facility] [phone] [place] [phone] Funmi Muir, DMD [address] [place] [address] 12/17/2024 11:00 AM EDT Office Visit [facility] [address] [place] [phone] Jose Alfredo Gale, RHD [address] [place], [place] [phone] Health Maintenance Due Date Last Done Comments Dental Perio Charting 1948 Dental Prophy 1948 Hepatitis C Screening 1948 Medicare Annual Wellness Visit 1966 Imm-DTaP/Tdap/Td (1 - Tdap) 1967 Imm-Pneumococcal 65+ (1 of 1 - PCV) 1998 Imm-Zoster, Recombinant (1 of 2) 1998 Falls Prevention 2013 [id number] (1 - season) 2024 Imm-Influenza (#1) 2024 Alcohol and Drug Screen 08/22/2024 Depression Annual Screen 08/22/2024 Dental BW 10/28/2025 10/26/2024 Dental Examination 10/28/2025 10/26/2024 Hypertension Screening (#1) 11/07/2025 Tobacco Screening 11/07/2025 11/07/2024 Dental FMX/Pano 10/28/2029 10/26/2024 Procedures Procedure Name Priority Date/Time Associated Diagnosis Comments 22 MF RESIN-BASED COMPOSITE TWO SURFACES ANTERIOR Routine 11/07/2024 1:40 PM EDT Caries CASE PRESENTATION SUBS DTL & EXTENSIVE TX PLN Routine 11/07/2024 1:40 PM EDT Caries PERIODIC ORAL EVALUATION ESTABLISHED PATIENT Routine 10/26/2024 2:20 PM EST Caries Encounter for dental examination DENTAL CASE MANAGEMENT - MOTIVATIONAL INTV Routine 10/26/2024 2:20 PM EST Caries Encounter for dental examination INTRAORAL - COMP SERIES OF RADIOGRAPHIC IMAGES Routine 10/26/2024 2:20 PM EST Caries Encounter for dental examination CARIES RISK ASSESSMENT & DOC FINDING HIGH RISK Routine 10/26/2024 2:20 PM EST Caries Encounter for dental examination ORAL CANCER SCREENING Routine 10/26/2024 2:20 PM EST Caries Encounter for dental examination CASE PRESENTATION SUBS DTL & EXTENSIVE TX PLN Routine 10/26/2024 2:20 PM EST Encounter for dental examination 21 DO COMPOSITE - WISDOM (NON BILLABLE) [...] BILLABLE) Routine 10/26/2024 12:00 AM EST 31 ROOT CANAL - WISDOM (NO BILLABLE) Routine 10/26/2024 12:00 AM EST 15 [...] METAL Routine 10/26/2024 12:00 AM EST 27 ROOT CANAL - WISDOM (NO BILLABLE) Routine 10/26/2024 12:00 AM EST 25 ROOT CANAL - WISDOM (NO BILLABLE) Routine 10/26/2024 12:00 AM EST 23 ROOT CANAL - WISDOM (NO BILLABLE) Routine 10/26/2024 12:00 AM EST 20 ROOT CANAL - WISDOM (NO BILLABLE) Routine 10/26/2024 12:00 AM EST CASE PRESENTATION SUBS DTL & EXTENSIVE TX PLN Routine 10/24/2024 1:00 PM EST Symptomatic irreversible pulpitis INTRAORAL - PERIAPICAL EACH ADD RADIOGRAPH IMAGE Routine 10/24/2024 1:00 PM EST Symptomatic irreversible pulpitis 19 ENDODONTIC THERAPY MOLAR TOOTH Routine 10/24/2024 1:00 PM EST Symptomatic irreversible pulpitis INTRAORAL - PERIAPICAL FIRST RADIOGRAPHIC IMAGE Routine 10/24/2024 11:00 AM EST Symptomatic irreversible pulpitis LIMITED ORAL EVALUATION - PROBLEM FOCUSED Routine 10/24/2024 11:00 AM EST Symptomatic irreversible pulpitis from Last 3 Months [facility] [place]
== END 2024-11-13 11:02 | disposition home or self-care (01) ==
LOC: HO.HAP 11:01
PROVIDERS: Visit Provider Internal Medicine
DX: Z46.1 Encounter for fitting and adjustment of hearing aid (principal); H90.3 Sensorineural hearing loss, bilateral
CPT/HCPCS: 92593; 99499; V5299

== ENCOUNTER 2025-01-10 10:55 | Outpatient (AMB) | payer MEDICARE, MEDICAID, SELFPAY ==
[2025-01-10 11:15] VITALS: BP 126/58; PULSE 57; O2SAT 99; BMI 29.1
--- NOTE | 2025-01-10 11:15 | MHC.PC.OV ---
Vital Signs 01/10/25 11:15 Height 5 ft 2 in Weight 159 lb 2 oz BMI 29.1 BP 126/58 L Blood Pressure Location Lt brachial Position Sitting Pulse 57 Pulse Source Pulse Oximeter Pulse Oximetry (%) 99 Oxygen Delivery Method Room Air Intake Visit Reasons: Transfer Care from Dr. Reese 3m f/u Appointment Clerk Required: No Accompanied by: Self / Same As Patient Allergies No Known Allergies [No Known Allergies*] Allergy (Verified 01/10/25 11:36) Medication List - Last Reconciled 01/10/25 by Brennon Adames MD blood sugar diagnostic FREESTYLE LITE TEST STRIPS THREE TIMES A DAY blood-glucose meter (FreeStyle Lite Meter kit) use to check blood sugars twice a day jgxlpergwe-cmnnzfqfnhjyt-ybzk 50-325-40 mg 1 - 2 tabs PO DAILY PRN cetirizine 10 mg PO BEDTIME 30 days clotrimazole-betamethasone 1-0.05 % 1 appl topical BID PRN fluticasone propionate 50 mcg/actuation (Flonase Allergy Relief) 1 spray intranasal BID 30 days glyburide 5 mg PO DAILY ibuprofen 600 mg PO TID PRN lancets (FreeStyle Lancets) FREESTYLE LANCETS THREE TIMES A DAY lisinopril 10 mg PO DAILY metformin 1,000 mg PO BID propranolol 10 mg PO ONCE PRN triamcinolone acetonide 0.5% 1 appl topical TID Tobacco use date assessed: 01/10/25 Fall risk assessment: No Falls in past year Last assessed Fall Risk: 01/10/25 Dental Screening Dental Screen Date: 01/10/25 Did you have a dental visit in the last 12 months?: Yes Did you have a dental problem in the last 6 months where you did not have access to dental care?: No Was dental information given to patient?: Patient has dentist HPI Transfer Care from Dr. Reese 3m f/u HPI Details Patient comes in today for his follow up visit - is transferring over from Dr. Reese, who retired from the practice a couple of months ago Patient states that he feels okay He denies any headaches or dizziness Denies any chest pains, no SOB PFSH Medical History (Updated 01/10/25 @ 11:54 by Brennon Adames MD) Bladder cancer Right renal atrophy Essential hypertension Peptic ulcer disease Diabetes mellitus Surgical History History of bladder surgery History of esophagogastroduodenoscopy (EGD) H/O rhinoplasty H/O blepharoplasty History of colonoscopy History of appendectomy Family History Father No problems noted. Mother No problems noted. Social History Housing: House Alcohol intake: never Patient Tobacco Use Status: Never used Tobacco Tobacco use type: Cigarette e-Cigarette/Vaping Use: Never Used Second Hand Smoke Exposure: No service: No Current occupational status: retired Current occupational exposures/hazards: No Cognitive needs: No Hearing needs: Yes Vision needs: Yes Questionnaire PHQ-9 Over the last 2 weeks, how often have you been bothered by any of the following problems? 1. Little interest or pleasure in doing things: not at all 2. Feeling down, depressed, or hopeless: not at all 3. Trouble falling or staying asleep, or sleeping too much: not at all 4. Feeling tired or having little energy: several days 5. Poor appetite or overeating: not at all 6. Feeling bad about yourself - or that you are a failure or have let yourself or your family down: not at all 7. Trouble concentrating on things, such as reading the newspaper or watching television: not at all 8. Moving or speaking so slowly that other people could have noticed. Or the opposite - being so fidgety or restless that you have been moving around a lot more than usual: not at all 9. Thoughts that you would be better off or of hurting yourself in some way: not at all Total score: 1 Source: Developed by Drs. Manjit Figueredo, Concha Mariano, Yasmani Bertrand and colleagues, with an educational ana from [employer]. Thrive Questionnaire Date Thrive assessed: 01/10/25 I am a: Patient What is your living situation today?: I choose not to answer this question Within the past 12 months, did the food you bought not last and you didn't have the money to get more?: I choose not to answer this question Within the past 12 months, did you worry whether your food would run out before you got money to buy more?: I choose not to answer this question Do you have trouble paying for medicines?: I choose not to answer this question Do you have trouble getting transportation to medical appointments?: I choose not to answer this question Do you have trouble paying your heating and electricity bill?: I choose not to answer this question Do you have trouble taking care of your child, family member or friend?: I choose not to answer this question Do you have trouble with day-to-day activities such as bathing, preparing meals, shopping, managing finances, etc.?: I choose not to answer this question Are you currently unemployed and looking for a job?: I choose not to answer this question Are you interested in more education?: I choose not to answer this question Please select the resources that you would like help with: None Currently or been in a relationship where the following occur: I choose not to answer THRIVE Score: 0 AUDIT C Alcohol Use Questionnaire (AUDIT-C) 1. How often do you have a drink containing alcohol?: Never 3. How often do you have six or more drinks on one occasion?: Never Total Score: 0 VICKY-7 AMB Questionnaire VICKY-7 Date VICKY - 7 assessed: 01/10/25 Feeling nervous, anxious, or on edge: 0 = Not at all Not being able to stop or control worryin = Not at all Worrying too much about different things: 0 = Not at all Trouble relaxin = Not at all Being so restless that it is hard to sit still: 0 = Not at all Becoming easily annoyed or irritable: 0 = Not at all Feeling afraid as if something awful might happen: 0 = Not at all Total VICKY-7 score (0-4 normal; 5-9 mild; 10-14 moderate; 15-21 severe): 0 Source: Developed by Drs. Manjit Figueredo, Concha Mariano, Yasmani Bertrand and colleagues, with an educational ana from [employer]. Physical exam (Primary Care) Vital Signs: Last Vital Signs Pulse 57 01/10/25 11:15 BP 126/58 L 01/10/25 11:15 Pulse Ox 99 01/10/25 11:15 Oxygen Delivery Method Room Air 01/10/25 11:15 BMI result Body Mass Index 29.1 Tobacco/Smoking Status: Tobacco use Status Tobacco use date assessed 01/10/25 01/10/25 11:21 Patient Tobacco Use Status Never used Tobacco 01/10/25 11:16 Tobacco use type Cigarette 01/10/25 11:16 e-Cigarette/Vaping Use Never Used 01/10/25 11:16 PHQ-9: PHQ-9 Score PHQ-9: Total score 1 01/10/25 11:39 Thrive Assessment: Date of Thrive Assessment Date Thrive assessed 01/10/25 01/10/25 11:21 Currently or been in a relationship where the following occur: I choose not to answer Results AMB Hemoglobin A1c AMB Hemoglobin A1c 7.6 % Last Edit by FRANCESCO Johnson on 01/10/25 11:46 Coding Level of Care Code Est Pt Level 4 (79002) Diagnoses Type 2 diabetes mellitus without complication, without long-term current use of insulin E11.9 Diabetes mellitus type: type 2 Diabetes mellitus intermediate card tender insulin use: without intermediate card tender use Diabetes mellitus complication status: without complication Essential hypertension I10 Chronic headaches R51.9; G89.29 Bladder cancer C67.9 Right renal atrophy N26.1 Hydronephrosis of right kidney N13.30 Assessment & Plan Assessment & Plan (1) Diabetes mellitus: Code(s): E11.9 - Type 2 diabetes mellitus without complications Category: Medical Qualifiers: Diabetes mellitus type: type 2 Diabetes mellitus intermediate card tender insulin use: without snf use Diabetes mellitus complication status: without complication Qualified Code(s): E11.9 - Type 2 diabetes mellitus without complications Plan: His in-office HgbA1c done today is at 7.6% (2) Essential hypertension: Code(s): I10 - Essential (primary) hypertension Category: Medical (3) Chronic headaches: Code(s): R51.9 - Headache, unspecified; G89.29 - Other chronic pain Category: Medical (4) Bladder cancer: Code(s): C67.9 - Malignant neoplasm of bladder, unspecified Category: Medical (5) Right renal atrophy: Comment: due to severe right-sided hydronephrosis Code(s): N26.1 - Atrophy of kidney (terminal) Category: Medical (6) Hydronephrosis of right kidney: Code(s): N13.30 - Unspecified hydronephrosis Category: Medical Plan Follow up in 4 months Orders: Orders Complete Blood Count Auto Diff 4 Months D64.9 - Anemia, unspecified Lipid Panel 4 Months E78.00 - Pure hypercholesterolemia, unspecified Microalbumin, Random (w Creat) 4 Months E11.9 - Type 2 diabetes mellitus without complications TSH reflex Free T4 4 Months E78.00 - Pure hypercholesterolemia, unspecified Vitamin D 25-OH Total 4 Months E55.9 - Vitamin D deficiency, unspecified Vitamin B12 and Folate 4 Months E53.8 - Deficiency of other specified B group vitamins AMB Hemoglobin A1c Today Z13.9 - Encounter for screening, unspecified Comprehensive [place]. Panel Fast 4 Months E78.00 - Pure hypercholesterolemia, unspecified Hemoglobin A1c 4 Months E11.9 - Type 2 diabetes mellitus without complications UA CC w/rflx Micro + Cult 4 Months R30.0 - Dysuria
--- OUTSIDE RECORDS SUMMARY | 2025-01-10 11:36 | XMS_ITS | Clinical Summary ---
Author Organization [address] [facility] Address [address] [place] [address] Phone Care Team Providers Care Wharf Operator Name Role Phone Physician, Pcp Unknown Primary Care Provider Luna vailable Encounters Date Type Department Care Team Description 11/29/2024 Lab Requisition [facility] - Main Lab [address] [facility] [place] [address] Angelo Vanessa MD Malignant neoplasm of overlapping sites of bladder (CMS/HCC V24, CMS/HCC V28) from Last 3 Months Social History Tobacco Use Types Packs/Day Years Used Date Smoking Tobacco: Never Assessed Sex and Gender Information Value Date Recorded Sex Assigned at Not on file Legal Sex Male 10:48 AM EST Gender Identity Not on file Sexual Orientation Not on file Plan of Treatment Health Maintenance Due Date Last Done Comments COVID-19 Vaccine (#1) 1955 DTaP,Tdap,and Td Vaccines (1 - Tdap) 1967 Pneumococcal Vaccine: 50+ Ye ars (1 of 2 - PCV) 1967 Zoster Vaccines (1 of 2) 1967 RSV Immunization Adult Patie nts (1 - 1-dose 75+ series) 2023 Cholesterol Screening (Lipid Panel) 11/29/2024 Depression Screening 11/29/2024 Falls Risk Assessment 11/29/2024 Hepatitis C Screening 11/29/2024 Medicare Annual Wellness Visit 11/29/2024 Social Influencers of Health Screening 11/29/2024 Influenza Vaccine (Season Ended) 2025 HIB Vaccines Aged Out No longer eligi ble based on patient's age to complete this topic HPV Vaccines Aged Out No longer eligi ble based on patient's age to complete this topic Hepatitis A Vaccines Aged Out No long er eligible based on patient's age to complete this topic Hepatitis B Vaccines Aged Out No long er eligible based on patient's age to complete this topic IPV Vaccines Aged Out No longer eligi ble based on patient's age to complete this topic MMR Vaccines Aged Out No longer eligi ble based on patient's age to complete this topic Meningococcal ACWY Vaccine Aged Out N o longer eligible based on patient's age to complete this topic Meningococcal B Vaccine Aged Out No l onger eligible based on patient's age to complete this topic RSV Immunization Patients Un telly 20 months Aged Out No longer eligible b ased on patient's age to complete this topic Varicella Vaccines Aged Out No longer eligible based on patient's age to complete this topic Procedures Procedure Name Priority Date/Time Associated Diagnosis Comments AP OUTSIDE CONSULT Routine 11/21/2024 12 :00 AM EDT Malignant neoplasm of overlapping sites of bladder ([facility] V24, [facility] V28) from Last 3 Months Results * Anatomic pathology outside consult (11/21/2024 12:00 AM EDT) Final Diagnosis A. Urine, Voided, ([id number]): Negative for high grade urothelial carcinoma. Results of UroVysion fluorescence in situ hybridization (FISH) testing: Although FISH was performed, insufficient non-obscured hybridization signals are present for evaluation and interpretation. 11/30/2024 5:09 PM EDT [facility] Clinical Information Malignant neoplasm of overlapping sites of bladder C67.8 Urine Cytology/FISH (now) 11/30/2024 5:09 PM EDT [facility] Gross Description A. Urine, Voided, ([id number]): Received one ThinPrep slide for cytology and one ThinPrep slide for UroVysion FISH 11/30/2024 5:09 PM EDT [facility] Disclaimer Unless otherwise specified, all tissue is 10% NB formalin fixed and paraffin embedded. Technical pathology services provided by [facility] at [address] [place] [address] [address], [place] [address] (CLIA #[id number]/Rebekah Mireles MD, Collections Clerk) 11/30/2024 5:09 PM EDT [facility] ([facility]) [facility] Tissue Urine specimen from urethra / Unknown 11/21/2024 11/29/2024 8:08 AM EDT us Angelo Vanessa MD LAB PATHOLOGY ORDERABLES Fin al Result [facility] ([facility]) [facility] [address] [place] [address], [place] [phone] from Last 3 Months Insurance MEDICAID - [place] MEDICARE Care Teams Wharf Operator Relationship Specialty Start Date End Date Physician, Pcp Unknown PCP - General 11/29/24
--- OUTSIDE RECORDS SUMMARY | 2025-01-10 11:36 | XMS_ITS | Clinical Summary ---
Author Organization [facility] Address [address] [place] [address] Care Team Providers Care Principal Developer Name Role Phone Unavailable Primary Care Provider Unavailabl e Source Comments PLEASE NOTE, if this patient is a minor, it may be UNLAWFUL to discuss sensitive information that is contained in these records (such as FAMILY PLANNING, MENTAL HEALTH or SUBSTANCE ABUSE) with the minor patient's parent or other person without the patient's specific authorization.[facility] Allergies No known active allergies Medications chlorhexidine (PERIDEX) 0.12 % solutionIndicat ions:Chronic gingivitis, plaque induced Rinse twice daily with 15 ML after brushing teeth and expectorate. Repeat for two weeks. 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 ([facility]) (Primary Dx) 12/14/2024 10:20 AM EDT Office Visit [address] [phone] Funmi Muir DMD Full coverage crown needed for root canal-treated tooth (Primary Dx); Caries of enamel (incipient) 12/07/2024 9:00 AM EDT Office Visit [address] [phone] Funmi Muir DMD Full coverage crown needed for root canal-treated tooth (Primary Dx); Chronic gingivitis, plaque induced 11/29/2024 9:00 AM EDT Office Visit [address] [phone] Funmi Muir DMD Full coverage crown needed for tooth at risk for fracture (Primary Dx) 11/27/2024 11:00 AM EDT Office Visit [address] [phone] Funmi Muir DMD Caries (Primary Dx) 11/07/2024 1:40 PM EDT Office Visit [address] [phone] Funmi Muir DMD Caries (Primary Dx) 10/26/2024 2:20 PM EST Office Visit [address] [phone] [place] Debbie Y Encounter for dental examination (Primary Dx); Caries 10/24/2024 1:00 PM EST Office Visit [address] [phone] Linda Dunne DMD Symptomatic irreversible pulpitis (Primary Dx) 10/24/2024 11:00 AM EST Office Visit [facility] [address] [place] [phone] Jose Alfredo Gale RHD Symptomatic irreversible pulpitis (Primary Dx) from Last [...] Sign Reading Time Taken Comments Blood Pressure 128/68 01/01/2025 2:54 PM EDT Pulse 66 01/01/2025 2:54 PM EDT Temperature - - Respiratory Rate - - Oxygen Saturation - - Inhaled Oxygen Concentration - - Weight - - Height - - Body Mass Index - - Plan of Treatment Upcoming Encounters Date Type Department Care Team (Late st Contact Info) Description 07/04/2025 11:00 AM EST Office Visit [facility] [address] [place] [phone] Jose Alfredo Gale RHD [address] [place] [address] Health Maintenance Due Date Last Done Comments Diabetes Foot Exam 1948 Diabetes HbA1c 1948 Hepatitis C Screening 1948 Lipid Screening 1948 Urine Albumin Creatinine Rat io Screening 1948 Retinopathy Screening 1961 Medicare Annual Wellness Visit 1966 Imm-DTaP/Tdap/Td (1 - Tdap) 1967 Imm-Pneumococcal 65+ (1 of 2 - PCV) 1967 Imm-Zoster, Recombinant (1 of 2) 1998 Falls Prevention 2013 [id number] ( - season) 2024 Imm-Influenza (#1) 2024 Serum Creatinine 06/06/2024 06/06/2023, , 05/07/2023, Additional history exists Alcohol and Drug Screen 08/22/2024 Depression Annual Screen 08/22/2024 Dental Prophy 07/06/2025 01/01/2025 Dental BW 10/28/2025 10/26/2024 Dental Examination 10/28/2025 10/26/2024 Tobacco Screening 12/14/2025 12/14/2024 Hypertension Screening (#1) 01/01/2026 Dental Perio Charting 01/03/2026 01/01/2025 Dental FMX/Pano 10/28/2029 10/26/2024 Procedures Procedure Name Priority Date/Time Associated Diagnosis Comments Full COMP PERIODONTAL EVALUATION - NEW/EST PATIENT Routine 01/01/2025 3:00 PM EDT 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) 19 CROWN - PORCELAIN/CERAMIC Routine 12/14/2024 10:20 AM EDT Full coverage crown needed for root canal-treated tooth CASE PRESENTATION SUBS DTL & EXTENSIVE TX PLN Routine 12/14/2024 10:20 AM EDT Full coverage crown needed for root canal-treated tooth 26 F COMPOSITE - WISDOM (NON BILLABLE) Routine 12/14/2024 12:00 AM EDT 26 L COMPOSITE - WISDOM (NON BILLABLE) Routine 12/14/2024 12:00 AM EDT 26 D COMPOSITE - WISDOM (NON BILLABLE) Routine 12/14/2024 12:00 AM EDT CROWN IN PROGRESS Routine 12/07/2024 9:0 0 AM EDT Full coverage crown needed for root canal-treated tooth CASE PRESENTATION SUBS DTL & EXTENSIVE TX PLN Routine 11/29/2024 9:00 AM EDT Full coverage crown needed for tooth at risk for fracture 19 PREFABRICATED POST AND CORE IN ADDITION TO CROWN Routine 11/29/2024 9:00 AM EDT Full coverage crown needed for tooth at risk for fracture 13 DO RESIN-BASED COMPOSITE - TWO SURFACES POSTERIOR Routine 11/27/2024 11:00 AM EDT Caries CASE PRESENTATION SUBS DTL & EXTENSIVE TX PLN Routine 11/27/2024 11:00 AM EDT Caries 22 MF RESIN-BASED COMPOSITE TWO [...] Symptomatic irreversible pulpitis from Last 3 Months Insurance [place] - [place] [facility]AL
--- OUTSIDE RECORDS SUMMARY | 2025-01-10 11:36 | XMS_ITS | Encounter Summary ---
Author Organization [facility] Address [address] [place] [address] Care Team Providers Care Ship Fastener Name Role Phone Physician, Pcp Unknown Primary Care Provider Luna vailable Encounter Details Date Type Department Care Team (Late st Contact Info) Description 11/29/[address] [facility] - Main Lab [address] [facility] [place] [address] Angelo Vanessa MD [address] [place] [address] Malignant neoplasm of overlapping sites of bladder ([facility]/HCC V24, CMS/HCC V28) Social History Tobacco Use Types Packs/Day Years Used Date Smoking Tobacco: Never Assessed Sex and Gender Information Value Date Recorded Sex Assigned at Not on file Legal Sex Male 10:48 AM EST Gender Identity Not on file Sexual Orientation Not on file documented as of this encounter Plan of Treatment Not on file documented as of this encounter Procedures Procedure Name Priority Date/Time Associated Diagnosis Comments AP OUTSIDE CONSULT Routine 11/21/2024 12 :00 AM EDT Malignant neoplasm of overlapping sites of bladder (CMS/HCC V24, CMS/[facility] V28) documented in this encounter Results * Anatomic pathology outside consult (11/21/2024 12:00 AM EDT) Final Diagnosis A. Urine, Voided, ([id number]): Negative for high grade urothelial carcinoma. Results of UroVysion fluorescence in situ hybridization (FISH) testing: Although FISH was performed, insufficient non-obscured hybridization signals are present for evaluation and interpretation. 11/30/2024 5:09 PM EDT [facility] Clinical Information Malignant neoplasm of overlapping sites of bladder C67.8 Urine Cytology/FISH (now) 11/30/2024 5:09 PM EDT [facility] Gross Description A. Urine, Voided, ([id number]): Received one ThinPrep slide for cytology and one ThinPrep slide for UroVysion FISH 11/30/2024 5:09 PM EDT [facility] Disclaimer Unless otherwise specified, all tissue is 10% NB formalin fixed and paraffin embedded. Technical pathology services provided by [facility] at [address] [facility] [address], [place] [address] (CLIA #[id number]/Rebekah Mireles MD, [employer] Field Service) 11/30/2024 5:09 PM EDT [facility] Tissue Urine specimen from urethra / Unknown 11/21/2024 11/29/2024 8:08 AM EDT us Angelo Vanessa MD LAB PATHOLOGY ORDERABLES Fin al Result [facility] [address] [place] [address], documented in this encounter Visit Diagnoses Diagnosis Malignant neoplasm of overlapping sites of bladder (CMS/HCC V24, CMS/HCC V28) documented in this encounter Care Teams Ship Fastener Relationship Specialty Start Date End Date Physician, Pcp Unknown PCP - General 11/29/24 documented as of this encounter
== END 2025-01-10 11:51 | disposition home or self-care (01) ==
LOC: HO.HMCH 10:56
PROVIDERS: PCP Internal Medicine; Visit Provider Internal Medicine
DX: Z13.9 Encounter for screening, unspecified (principal)

== ENCOUNTER → 2025-01-10 10:55 | Outpatient (BNVA) | payer MEDICARE, MEDICAID, SELFPAY | PROVIDERS: PCP Internal Medicine; Visit Provider Internal Medicine | DX: E11.9 Type 2 diabetes mellitus without complications (principal); I10 Essential (primary) hypertension; R51.9 Headache, unspecified; G89.29 Other chronic pain; C67.9 Malignant neoplasm of bladder, unspecified; N26.1 Atrophy of kidney (terminal); N13.30 Unspecified hydronephrosis; J30.9 Allergic rhinitis, unspecified; E66.3 Overweight; Z68.29 Body mass index [BMI] 29.0-29.9, adult; Z71.3 Dietary counseling and surveillance | CPT/HCPCS: 83036; 96127; 99212 ==

== ENCOUNTER 2025-05-21 10:38 | Outpatient (AMB) | payer MEDICARE, MEDICAID, SELFPAY ==
--- NOTE | 2025-05-21 10:43 | A.OFFPC_ITS ---
Vital Signs 05/21/25 10:44 Height 5 ft 2 in Weight 152 lb 6 oz BMI 27.9 BP 110/58 L Blood Pressure Location Lt brachial Position Sitting Pulse 53 Pulse Source Pulse Oximeter Pulse Oximetry (%) 95 Oxygen Delivery Method Room Air Intake Visit Reasons: Follow Up Book Cutter Required: No Accompanied by: Self / Same As Patient Allergies No Known Allergies (No Known Allergies*) Allergy (Verified 05/21/25 11:15) Medication List - Last Reconciled 05/21/25 by Brennon Adames MD blood sugar diagnostic FREESTYLE LITE TEST STRIPS THREE TIMES A DAY blood-glucose meter (FreeStyle Lite Meter kit) use to check blood sugars twice a day qitpuuacca-mnejqpeestoer-bcmv 50-325-40 mg Take 1 to 2 tablets orally daily only as needed for migraine headaches; cetirizine 10 mg PO BEDTIME 30 days clotrimazole-betamethasone 1-0.05 % 1 appl topical BID PRN fluticasone propionate 50 mcg/actuation (Flonase Allergy Relief) 1 spray intranasal BID 30 days glyburide 5 mg PO DAILY ibuprofen 600 mg PO TID PRN lancets (FreeStyle Lancets) FREESTYLE LANCETS THREE TIMES A DAY lisinopril 10 mg PO DAILY metformin 1,000 mg PO BID propranolol 10 mg PO ONCE PRN triamcinolone acetonide 0.5% 1 appl topical TID Tobacco use date assessed: 05/21/25 Fall risk assessment: No Falls in past year Last assessed Fall Risk: 05/21/25 Dental Screening Dental Screen Date: 05/21/25 Did you have a dental visit in the last 12 months?: Yes Did you have a dental problem in the last 6 months where you did not have access to dental care?: No Was dental information given to patient?: Patient has dentist HPI Follow Up HPI Details Patient comes in today for his follow up visit States that he feels okay He denies any dizziness but continues to experience (+) on and off headaches - patient states that he usually just takes 1/2 tablet of his Fioricet everyday to help keep his headaches in check and his current Rx of 10 tablets per Rx is not lasting him a month Denies any chest pains, no SOB No nausea/vomiting, no abdominal pain No change in bowel habits noted He would also like to get his Mupirocin ointment Rx, which he usually gets from dermatology, refilled as it takes a long time for him to get an appointment with dermatology scheduled He was not able to get his previously ordered follow up labs done prior to coming in for his appointment today [facility] Medical History Overweight (BMI 25.0-29.9) Allergic rhinitis Bladder cancer Right renal atrophy Essential hypertension Peptic ulcer disease Diabetes mellitus Surgical History History of bladder surgery History of esophagogastroduodenoscopy (EGD) H/O rhinoplasty H/O blepharoplasty History of colonoscopy History of appendectomy Family History Father No problems noted. Mother No problems noted. Social History Housing: House Alcohol intake: never Patient Tobacco Use Status: Never used Tobacco Tobacco use type: Cigarette e-Cigarette/Vaping Use: Never Used Second Hand Smoke Exposure: No service: No Current occupational status: retired Current occupational exposures/hazards: No Cognitive needs: No Hearing needs: Yes Vision needs: Yes Questionnaire Thrive Questionnaire Date Thrive assessed: 01/10/25 I am a: Patient What is your living situation today?: I choose not to answer this question Within the past 12 months, did the food you bought not last and you didn't have the money to get more?: I choose not to answer this question Within the past 12 months, did you worry whether your food would run out before you got money to buy more?: I choose not to answer this question Do you have trouble paying for medicines?: I choose not to answer this question Do you have trouble getting transportation to medical appointments?: I choose not to answer this question Do you have trouble paying your heating and electricity bill?: I choose not to answer this question Do you have trouble taking care of your child, family member or friend?: I choose not to answer this question Do you have trouble with day-to-day activities such as bathing, preparing meals, shopping, managing finances, etc.?: I choose not to answer this question Are you currently unemployed and looking for a job?: I choose not to answer this question Are you interested in more education?: I choose not to answer this question Please select the resources that you would like help with: None Currently or been in a relationship where the following occur: I choose not to answer THRIVE Score: 0 AUDIT C Alcohol Use Questionnaire (AUDIT-C) 1. How often do you have a drink containing alcohol?: Never 3. How often do you have six or more drinks on one occasion?: Never Total Score: 0 Score Reviewed/Action Taken: Yes VICKY-7 AMB Questionnaire VICKY-7 Date VICKY - 7 assessed: 01/10/25 Source: Developed by Drs. Manjit Figueredo, Concha Mariano, Yasmani Bertrand and colleagues, with an educational ana from [employer]. Review of Systems Const Denies chills, Denies fatigue, Denies fever(s) and Reports headache(s) (recurrent) ENT Denies dysphagia, Denies dizziness, Denies otalgia, Reports headache(s) (recurrent), Denies neck pain, Denies odynophagia and Denies sore throat Card Denies chest pain, Denies palpitations and Denies dyspnea Resp Denies chest congestion, Denies cough and Denies dyspnea GI Denies abdominal pain, Denies constipation, Denies dysphagia, Denies heartburn, Denies diarrhea, Denies nausea, Denies odynophagia and Denies vomiting Denies difficulty urinating, Denies dysuria, Denies nocturia and Denies urinary frequency Musc Denies back pain and Denies neck pain Skin/Breast Denies rash Neuro Denies dizziness and Reports headache(s) (recurrent) Endo Denies fatigue and Denies palpitations Physical exam (Primary Care) Vital Signs: Last Vital Signs Pulse 53 05/21/25 10:44 BP 110/58 L 05/21/25 10:44 Pulse Ox 95 05/21/25 10:44 Oxygen Delivery Method Room Air 05/21/25 10:44 BMI result Body Mass Index 27.9 Tobacco/Smoking Status: Tobacco use Status Tobacco use date assessed 05/21/25 05/21/25 10:45 Patient Tobacco Use Status Never used Tobacco 05/21/25 10:45 Tobacco use type Cigarette 05/21/25 10:45 e-Cigarette/Vaping Use Never Used 05/21/25 10:45 Thrive Assessment: Date of Thrive Assessment Date Thrive assessed 01/10/25 05/21/25 10:45 Currently or been in a relationship where the following occur: I choose not to answer Const General: no acute distress and alert HENMT Ears: TM's normal bilaterally and EAC's normal Throat: Yes posterior oropharynx normal and Yes tonsils normal (no TP congestion) Neck Neck: Yes supple and No lymphadenopathy Thyroid: Thyroid normal Resp Auscultation: clear to auscultation bilaterally, no rales and no wheezes Cardio Rate: regular rate Rhythm: regular rhythm Heart sounds: no murmurs GI Palpation (GI): Soft to palpation and nontender Auscultation: normal bowel sounds General: Yes no CVA tenderness Back/Spine/Pelvis Back: no CVA tenderness Thoracic/Lumbar Spine: No lumbar spinal tenderness Skin Rashes: no rashes Extrem General: Yes no clubbing, cyanosis or edema Coding Level of Care Code Est Pt Level 4 (02489) Diagnoses Type 2 diabetes mellitus without complication, without long-term current use of insulin E11.9 Diabetes mellitus type: type 2 Diabetes mellitus alf insulin use: without alf use Diabetes mellitus complication status: without complication Essential hypertension I10 Chronic nonintractable headache, unspecified headache type R51.9; G89.29 Headache type: unspecified Intractability: not intractable Malignant neoplasm of urinary bladder, unspecified site C67.9 Bladder location: unspecified site Right renal atrophy N26.1 Hydronephrosis of right kidney N13.30 Allergic rhinitis, unspecified seasonality, unspecified trigger J30.9 Allergic rhinitis trigger: unspecified Allergic rhinitis seasonality: unspecified Impetigo L01.00 Overweight (BMI 25.0-29.9) E66.3 Assessment & Plan Assessment & Plan (1) Diabetes mellitus: Code(s): E11.9 - Type 2 diabetes mellitus without complications Category: Medical Qualifiers: Diabetes mellitus type: type 2 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 insulin use: without dedicated intermodal truck driver use Diabetes mellitus complication status: without complication Qualified Code(s): E11.9 - Type 2 diabetes mellitus without complications Plan: His in-office HgbA1c was at 7.6% at his last visit a few months ago - goal is at least <7.5% Patient will be going to get his follow up labs done tomorrow morning and this will include his updated HgbA1c Reinforced diabetic diet Continue Glyburide 5 mg QD and Metformin 1000 mg BID for now Will recheck his labs and HgbA1c in 4 months for follow up (2) Essential hypertension: Code(s): I10 - Essential (primary) hypertension Category: Medical Plan: Reinforced low sodium diet - goal is systolic BP of at least 130 to 140 mm or less Continue Lisinopril 10 mg QD Patient is advised to continue checking/monitoring his blood pressdure regularly (3) Chronic headaches: Code(s): R51.9 - Headache, unspecified; G89.29 - Other chronic pain Category: Medical Qualifiers: Headache type: unspecified Intractability: not intractable Qualified Code(s): R51.9 - Headache, unspecified; G89.29 - Other chronic pain Plan: Controlled lately Continue Propranolol 10 mg QD and Fioricet PRN for symptomatic relief (4) Bladder cancer: Code(s): C67.9 - Malignant neoplasm of bladder, unspecified Category: Medical Qualifiers: Bladder location: unspecified site Qualified Code(s): C67.9 - Malignant neoplasm of bladder, unspecified Plan: (+) Hx of high-risk non-muscle invasive bladder cancer He has failed Tx with BCG twice and subsequently underwent cystoprostectomy Pathology report showed T0, N0 disease He currently has a permanent urostomy bag Follow up with urology as scheduled for continuing surveillance (5) Right renal atrophy: Comment: due to severe right-sided hydronephrosis Code(s): N26.1 - Atrophy of kidney (terminal) Category: Medical Plan: MRI of the abdomen [facility] a few months ago revealed severe right-sided hydronephrosis and hydroureter with an atrophic right kidney No further intervention is recommended for this issue (6) Hydronephrosis of right kidney: Code(s): N13.30 - Unspecified hydronephrosis Category: Medical Plan: This is likely secondary to a mild right anastomotic stricture, for which no treatment was recommended His left kidney is normal, with no evidence of metastatic disease or recurrence (7) Allergic rhinitis: Code(s): J30.9 - Allergic rhinitis, unspecified Category: Medical Qualifiers: Allergic rhinitis trigger: unspecified Allergic rhinitis seasonality: unspecified Qualified Code(s): J30.9 - Allergic rhinitis, unspecified Plan: Continue Cetirizine 10 mg QD PRN and Fluticasone 50 mcg nasal spray QD PRN (8) Impetigo: Code(s): L01.00 - Impetigo, unspecified Category: Medical Plan: Continue Mupirocin 2% ointment apply QD PRN - Rx refilled per request (9) Overweight (BMI 25.0-29.9): Code(s): E66.3 - Overweight Category: Medical Plan: Reinforced diet; exercise and weight loss are unrealistic given patient's age, physical issues and multiple comorbidities Plan Follow up in 4 months Medications: New mupirocin 2% (Centany) 1 appl topical DAILY PRN 15 grams 1RF skin rash Refilled lhztbngjae-qjurbcvpvlanw-bdpc 50-325-40 mg Take 1 to 2 tablets orally daily only as needed for migraine headaches; 15 tabs 0RF
[2025-05-21 10:44] VITALS: BP 110/58; PULSE 53; O2SAT 95; BMI 27.9
--- OUTSIDE RECORDS SUMMARY | 2025-05-21 11:56 | XMS_ITS | Clinical Summary ---
Author Organization [address] [facility] Address [address] [place] [address] Phone Care Team Providers Care Net Front End Developer Name Role Phone Physician, Pcp Unknown Primary Care Provider Luna vailable Social History Tobacco Use Types Packs/Day Years Used Date Smoking Tobacco: Never Assessed Sex and Gender Information Value Date Recorded Sex Assigned at Not on file Legal Sex Male 10:48 AM EST Gender Identity Not on file Sexual Orientation Not on file Plan of Treatment Health Maintenance Due Date Last Done Comments DTaP,Tdap,and Td Vaccines (1 - Tdap) 1967 Pneumococcal Vaccine: 50+ Ye ars (1 of 1 - PCV) 1998 Zoster Vaccines (1 of 2) 1998 RSV Immunization Adult Patie nts (1 - 1-dose 75+ series) 2023 Depression Screening 08/22/2024 Cholesterol Screening (Lipid Panel) 11/29/2024 Falls Risk Assessment 11/29/2024 Hepatitis C Screening 11/29/2024 Medicare Annual Wellness Visit 11/29/2024 Social Influencers of Health Screening 11/29/2024 COVID-19 Vaccine (1 - 2023-2 5 season) 2025 Influenza Vaccine (#1) 2025 HIB Vaccines Aged Out No longer [...] on patient's age to complete this topic Insurance MEDICAID - [place] MEDICARE Care Teams Net Front End Developer Relationship Specialty Start Date End Date Physician, Pcp Unknown PCP - General 11/29/24
--- OUTSIDE RECORDS SUMMARY | 2025-05-21 11:56 | XMS_ITS | Clinical Summary ---
Author Organization [facility] Address [address] [place] [address] Care Team Providers Care Reo Asset Manager Name Role Phone Unavailable Primary Care [...] Active Active Problems No known active problems Social History Tobacco Use Types Packs/Day Years [...] Care Team (Late st Contact Info) Description 07/17/2025 10:40 AM EST Office Visit [facility] Dental [address] [place] [address] T[address] [place], [place] [phone] Health Maintenance Due Date Last Done Comments Diabetes Foot Exam 1948 Hemoglobin A1c 1948 Hepatitis C Screening 1948 Lipid Screening 1948 Urine Albumin Creatinine Rat io Screening 1948 Retinopathy Screening 1961 Medicare Annual Wellness Visit 1966 Imm-DTaP/Tdap/Td (1 - Tdap) 1967 Imm-Pneumococcal 50+ (1 of 2 - PCV) 1967 Imm-Zoster, Recombinant (1 of 2) 1998 Falls Prevention 2013 Imm-RSV (adult) (1 - 1-dose 75+ series) 2023 Serum Creatinine 06/06/2024 06/06/2023, , 05/07/2023, Additional history exists Alcohol and Drug Screen 08/22/2024 Depression Annual Screen 08/22/2024 [id number] ( - season) 2025 Imm-Influenza (#1) 2025 Dental Prophy 07/06/2025 01/01/2025 Dental BW 10/28/2025 10/26/2024 Dental Examination 10/28/2025 10/26/2024 Tobacco Screening 12/14/2025 12/14/2024 Hypertension Screening (#1) 01/01/2026 Dental Perio Charting 01/03/2026 01/01/2025 Dental FMX/Pano 10/28/2029 10/26/2024 Procedures Procedure Name Priority Date/Time Associated Diagnosis Comments Full COMP PERIODONTAL EVALUATION - NEW/EST PATIENT Routine 01/01/2025 3:00 PM EDT 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 ([facility]) Full PROPHYLAXIS - ADULT Routine 025 3:00 PM EDT 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
--- OUTSIDE RECORDS SUMMARY | 2025-05-21 11:56 | XMS_ITS | Encounter Summary ---
Author Organization [facility] Address [address] [place] [address] Care Team Providers Care Cement Contractor Name Role Phone Physician, Pcp Unknown Primary Care Provider Luna vailable Encounter Details Date Type Department Care Team (Late st Contact Info) Description 11/29/2024 Lab Requisition [facility] - Main Lab [address] [facility] [place] [address] Angelo Vanessa MD [address] [place] [address] Malignant neoplasm of overlapping sites of bladder ([facility]/HCC V24, CMS/HCC V28) Social History Tobacco [...] of overlapping sites of bladder (CMS/HCC V24, CMS/[facility] V28) documented in this encounter Results * Anatomic pathology outside consult (11/21/2024 12:00 AM EDT) Final Diagnosis A. Urine, Voided, ([id number]): Negative for high grade urothelial carcinoma. Results of UroVysion fluorescence in situ hybridization (FISH) testing: Although FISH was performed, insufficient non-obscured hybridization signals are present for evaluation and interpretation. 11/30/2024 5:[address] [facility] Clinical Information Malignant neoplasm of overlapping sites of bladder C67.8 Urine Cytology/FISH (now) 11/30/2024 5:09 PM EDT [facility] Gross Description A. Urine, Voided, ([id number]): Received one ThinPrep slide for cytology and one ThinPrep slide for UroVysion FISH 11/30/2024 5:09 PM EDT [facility] Disclaimer Unless otherwise specified, all tissue is 10% NB formalin fixed and paraffin embedded. Technical pathology services provided by [facility] at [address] [facility] [address], [place] [address] (CLIA #[id number]/Rebekah Mireles MD, Show Girl) 11/30/2024 5:09 PM EDT [facility] Tissue Urine specimen from urethra / Unknown 11/21/2024 11/29/2024 8:08 AM EDT us Angelo Vanessa MD LAB PATHOLOGY ORDERABLES Fin al Result [facility] [address] [place] [address], documented in this encounter Visit Diagnoses Diagnosis Malignant neoplasm of overlapping sites of bladder (CMS/HCC V24, CMS/HCC V28) documented in this encounter Care Teams Cement Contractor Relationship Specialty Start Date End Date Physician, Pcp Unknown PCP - General 11/29/24 documented as of this encounter
== END 2025-05-21 11:31 | disposition home or self-care (01) ==
LOC: HO.HMCH 10:38
PROVIDERS: PCP Internal Medicine; Visit Provider Internal Medicine
DX: E11.9 Type 2 diabetes mellitus without complications (principal); C67.9 Malignant neoplasm of bladder, unspecified; I10 Essential (primary) hypertension; R51.9 Headache, unspecified; G89.29 Other chronic pain; N26.1 Atrophy of kidney (terminal); N13.30 Unspecified hydronephrosis; J30.9 Allergic rhinitis, unspecified; L01.00 Impetigo, unspecified; E66.3 Overweight

== ENCOUNTER → 2025-05-21 10:38 | Outpatient (BNVA) | payer MEDICARE, MEDICAID, SELFPAY | PROVIDERS: PCP Internal Medicine; Visit Provider Internal Medicine | DX: E11.9 Type 2 diabetes mellitus without complications (principal); I10 Essential (primary) hypertension; R51.9 Headache, unspecified; G89.29 Other chronic pain; C67.9 Malignant neoplasm of bladder, unspecified; N26.1 Atrophy of kidney (terminal); N13.30 Unspecified hydronephrosis; J30.9 Allergic rhinitis, unspecified; L01.00 Impetigo, unspecified; E66.3 Overweight; Z68.27 Body mass index [BMI] 27.0-27.9, adult; Z71.3 Dietary counseling and surveillance | CPT/HCPCS: 99212 ==

== ENCOUNTER 2025-05-23 09:15 | Outpatient (REF) | payer MEDICARE, MEDICAID, SELFPAY ==
[2025-05-23 09:32] LABS: MANUAL DIFF FLAG NO
--- OUTSIDE RECORDS SUMMARY | 2025-05-23 10:08 | XMS_ITS | Encounter Summary ---
Author Organization [facility] Address [address] [place] [address] Care Team Providers Care Paper Novelty Maker Name Role Phone Physician, Pcp Unknown Primary Care Provider Luna vailable Encounter Details Date Type Department Care Team (Late st Contact Info) Description 11/29/2024 Lab Requisition [facility] - Main Lab [address] [facility] [place] [address] Angelo Vanessa MD [address] [place] [address] Malignant neoplasm of overlapping sites of bladder ([facility]/HCC V24, CMS/HCC V28) Social History Tobacco Use [...] of overlapping sites of bladder (CMS/HCC V24, CMS/[facility] V28) documented in this encounter Results * Anatomic pathology outside consult (11/21/2024 12:00 AM EDT) Final Diagnosis A. Urine, Voided, ([id number]): Negative for high grade urothelial carcinoma. Results of UroVysion fluorescence in situ hybridization (FISH) testing: Although FISH was performed, insufficient non-obscured hybridization signals are present for evaluation and interpretation. 11/30/2024 5:09 PM EDT [facility] Clinical Information Malignant neoplasm of overlapping sites of bladder C67.8 Urine Cytology/FISH (now) 11/30/2024 5:09 PM EDT [facility] Gross Description A. Urine, Voided, ([id number]): Received one ThinPrep slide for cytology and one ThinPrep slide for UroVysion FISH 11/30/2024 5:09 PM EDT [facility] Disclaimer Unless otherwise specified, all tissue is 10% NB formalin fixed and paraffin embedded. Technical pathology services provided by [facility] at [address] [facility] [address], [place] [address] (CLIA #[id number]/Rebekah Mireles MD, Screener Perfumer) 11/30/2024 5:09 PM EDT [facility] Tissue Urine specimen from urethra / Unknown 11/21/2024 11/29/2024 8:08 AM EDT us Angelo Vanessa MD LAB PATHOLOGY ORDERABLES Fin al Result [facility] [address] [place] [address], documented in this encounter Visit Diagnoses Diagnosis Malignant neoplasm of overlapping sites of bladder (CMS/HCC V24, CMS/HCC V28) documented in this encounter Care Teams Paper Novelty Maker Relationship Specialty Start Date End Date Physician, Pcp Unknown PCP - General 11/29/24 documented as of this encounter
--- OUTSIDE RECORDS SUMMARY | 2025-05-23 10:08 | XMS_ITS | Clinical Summary ---
Author Organization [address] [facility] Address [address] [place] [address] Phone Care Team Providers Care Glassine Machine Tender Name Role Phone Physician, Pcp Unknown Primary [...] Insurance MEDICAID - [place] MEDICARE Care Teams Glassine Machine Tender Relationship Specialty Start Date End Date Physician, Pcp Unknown PCP - General 11/29/24
--- OUTSIDE RECORDS SUMMARY | 2025-05-23 10:08 | XMS_ITS | Encounter Summary ---
Author Organization [facility] Address [address] [place] [address] Phone Care Team Providers Care Computer Forensics Examiner Name Role Phone Jovani Reese MD Primary Care Provider [phone] Encounter Details Date Type Department Care Team (Late st Contact Info) Description 03/18/2023 Procedure [facility] [address] [place] [address] Social History Tobacco Use Types Packs/Day Years Used Date Smoking Tobacco: Never Smokeless Tobacco: Never Education Answer Date Recorded Are you interested in more education? Not on haley e 02/17/2023 Are you concerned about learning? Not on file 02/17/2023 No 02/17/2023 No 02/17/2023 Digital Access Answer Date Recorded No 02/17/2023 No 02/17/2023 Reliable internet access at home? Not on file 02/17/2023 Device with a working camera? Not on file Sex and Gender Information Value Date Recorded Sex Assigned at Male 02/17/2023 10:22 AM EDT Legal Sex Male 10:16 AM EDT Gender Identity Male 02/17/2023 10:22 AM EDT Sexual Orientation Straight 02/17/2023 10 :22 AM EDT documented as of this encounter Plan of Treatment Not on file documented as of this encounter Visit Diagnoses Not on filedocumented in this encounter Care Teams Computer Forensics Examiner Relationship Specialty Start Date End Date Jovani Reese MD [address] [place] [address] [place] [id number] PCP - General Internal Medicine 02/17/23 documented as of this encounter Additional Source Comments The information contained in this document represents components of the legal health record. It is not the complete legal health record.[facility]
--- OUTSIDE RECORDS SUMMARY | 2025-05-23 10:08 | XMS_ITS | Clinical Summary ---
Author Organization [facility] Address [address] [place] [address] Care Team Providers Care Block Cuber Name Role Phone Unavailable Primary Care Provider [...] Description 07/17/2025 10:40 AM EST Office Visit [facility] Dental [address] [place] [address] Tc Me[address] [place], [place] [phone] Health Maintenance Due Date Last Done Comments [...] Drug Screen 08/22/2024 Depression Annual Screen 08/22/2024 [id number] ( - season) 2025 Imm-Influenza (#1) 2025 [...] disease due to type 2 diabetes mellitus ([facility]) Full PROPHYLAXIS - ADULT Routine 025 3:00 PM EDT 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
--- OUTSIDE RECORDS SUMMARY | 2025-05-23 10:08 | XMS_ITS | Encounter Summary ---
Author Organization [facility] Address [address] [place] [address] Phone Care Team Providers Care Product Sales Engineer Name Role Phone Jovani Reese MD Primary Care Provider [phone] Encounter Details Date Type Department Care Team (Late st Contact Info) Description 03/18/2023 Procedure Pass [facility] [address] [place] [address] Social History Tobacco Use Types Packs/Day Years [...] on filedocumented in this encounter Care Teams Product Sales Engineer Relationship Specialty Start Date End Date Jovani Reese MD [address] [place] [address] [place] [address] PCP - General Internal Medicine 02/17/23 documented as of this encounter Additional Source Comments The information contained in this document represents components of the legal health record. It is not the complete legal health record.[facility]
--- OUTSIDE RECORDS SUMMARY | 2025-05-23 10:08 | XMS_ITS | Clinical Summary ---
Author Organization [facility] Address [address] [place] [address] Phone Care Team Providers Care Justowriter Operator Name Role Phone Jovani Reese MD Primary Care Provider Allergies No known active allergies Medications metFORMIN (GLUCOPHAGE) 500 MG tablet Take 1 tablet by mouth 2 (two) times a day. 3 Active glyBURIDE (DIABETA) 5 MG tablet Take 1 tablet by mouth every morning. 3 Active lisinopril (PRINIVIL,ZESTRI L) 10 MG tablet Take 1 tablet by mouth every morning. 3 Active butalbital-aceta minophen-caffein e (FIORICET, ESGIC) 50-325-40 mg per tablet TAKE 1 TO 2 TABLETS BY MOUTH EVERY DAY NEEDED FOR MIGRAINE 3 Active omeprazole 20 mg TbLD Take 20 mg by mouth daily as needed. 2 Active bisacodyl (DULCOLAX) 5 mg EC tablet Take 5 mg by mouth daily as needed for constipation. Active acetaminophen (TYLENOL) 325 mg tablet Take 3 tablets (975 mg total) by mouth every 6 (six) hours. 0 3 Active oxyCODONE 5 MG immediate release tablet Take 1-2 tablets (5-10 mg total) by mouth every 4 (four) hours as needed. Partial fill ok 5 tablet 3 Active Additional Information Patient not taking.Reported on 06/06/2023 polyethylene glycol (MIRALAX) 17 gram packet Take 17 g by mouth daily as needed for moderate constipation. 14 packet 3 Active senna (SENOKOT) 8.6 mg tablet Take 1 tablet by mouth 2 (two) times a day. Take daily postop to prevent constipation. May discontinue if you develop diarrhea 60 tablet 3 Active apixaban (ELIQUIS) 2.5 mg Take 1 tablet (2.5 mg total) by mouth 2 (two) times a day for 28 days. 56 tablet 3 Active sodium bicarbonate 650 mg tabletIndication s:Carcinoma of bladder Take 1 tablet (650 mg total) by mouth 4 (four) times a day. 56 tablet 3 Active Active Problems Problem Noted Date Diagnosed Date Urothelial cancer 05/04/2023 Social History Tobacco Use Types Packs/Day Years [...] with a working camera? Not on file Intimate Partner Violence Answer Date R ecorded Are you denied basic needs s uch as food, clothing, or medical care? No 05/05/2023 In the past 12 months have y ou been in a relationship with a person who hurts, threatens, or tries to control you? No 05/05/2023 Are you denied basic needs s uch as food, clothing, or medical care? No 05/05/2023 In the past 12 months have y ou been in a relationship with a person who hurts, threatens, or tries to control you? No 05/05/2023 Sex and Gender Information Value Date Recorded Sex Assigned at Male 02/17/2023 10:22 AM EDT Legal Sex Male 10:16 AM EDT Gender Identity Male 02/17/2023 10:22 AM EDT Sexual Orientation Straight 02/17/2023 10 :22 AM EDT Last Filed Vital Signs Vital Sign Reading Time Taken Comments Blood Pressure 125/65 06/06/2023 3:23 PM EDT Pulse 80 06/06/2023 3:23 PM EDT Temperature 36.7 C (98 F) 06/06/2023 3:23 PM EDT Respiratory Rate 20 05/10/2023 12:33 PM EDT Oxygen Saturation 97% 05/10/2023 12:33 PM EDT Inhaled Oxygen Concentration - - Weight 65.8 kg (145 lb) 06/06/2023 3:23 PM EDT Height 157.5 cm (5' 2 ) 06/06/2023 3:23 PM EDT Body Mass Index 26.52 06/06/2023 3:23 PM EDT Plan of Treatment Health Maintenance Due Date Last Done Comments LIPID PANEL 1948 DEPRESSION SCREENING 1960 HEPATITIS C SCREENING 1966 PNEUMOCOCCAL VACCINES (50+ years) (1 of 2 - PCV) 1967 ZOSTER VACCINES (1 of 2) 1967 RSV VACCINE (1 - 1-dose 75+ series) 2023 CREATININE LEVEL 06/06/2024 06/06/2023, , 05/18/2023, Additional history exists POTASSIUM LEVEL 06/06/2024 06/06/2023, 05/22, 05/18/2023, Additional history exists INFLUENZA VACCINE (#1) 2025 05/31/2018 COVID-19 VACCINE ( season) 2025 Adult Td,Tdap Booster 01/11/2028 01/10/2018 SMOKING STATUS SCREENING (Once After 26 Yrs) Completed 06/15/2023 HEPATITIS A VACCINES Aged Out No long er eligible based on patient's age to complete this topic HIB VACCINES Aged Out No longer eligi ble based on patient's age to complete this topic MENINGOCOCCAL VACCINES (ACWY) Aged Out No longer eligible based on patient's age to complete this topic MENINGOCOCCAL VACCINES (B) Aged Out N o longer eligible based on patient's age to complete this topic Medical Devices Implanted Type Area Forensic Identification Specialist Device Identifier Shelf Expiration Date Model / Serial / Lot Stent Diversion 7fr 90cm X2 Ureteral Single J Guidewire Ptfe .028 120cm Silicone - [id number] Implanted:Qty : 1 on 05/04/2023 by Daniel Ayala MD at [facility] Ureteral Stent Left: Ureter [employer] 02/09/2027 [id number] / / [id number] Description:1 package with 2 stents in it, bilateral ureter Stent Diversion 7fr 90cm X2 Ureteral Single J Guidewire Ptfe .028 120cm Silicone - [id number] Implanted:Qty : 1 on 05/04/2023 by Daniel Ayala MD at [facility] Ureteral Stent Right: Ureter [employer] 02/09/2027 [id number] / / [id number] Description:One package with 2 stents, bilateral Procedures Procedure Name Priority Date/Time Associated Diagnosis Comments BASIC METABOLIC PANEL Routine 06/06/2023 5:12 PM EDT Urothelial cancer from Last 3 Months or Most Recently Relevant to Health Maintenance Results * (ABNORMAL) Basic metabolic panel (06/06/2023 5:12 PM EDT) SODIUM 128(L) 136 - 145 mmol/L [facility] POTASSIUM 4.9 3.4 - 5.1 mmol/L [facility] CHLORIDE 94(L) 98 - 107 mmol/L [facility] CO2 20(L) 22 - 31 mmol/L [facility] BUN 15 6 - 23 mg/dL [facility] CREATININE 0.98 0.50 - 1.20 mg/dL [facility] GLUCOSE 121(H) 70 - 100 mg/dL [facility] CALCIUM 9.1 8.8 - 10.7 mg/dL [facility] EGFR 80 >59 mL/min/1.7 3m2 [facility] Comment:Estimated glomerular filtration rate calculated using the CKD-EPI refit equation. ANION GAP 14 7 - 17 mmol/L [facility] Blood 06/06/2023 5:12 PM EDT 06/06/2023 5:27 PM EDT us Emmanuel Ramirez MD, MPH LAB BLOOD ORDERABLES Suzanne connors Result [facility] [address] [place] [phone] from Last 3 Months or Most Recently Relevant to Health Maintenance Insurance [place] [id number] MEDICARE PART A & [place] Advance Directives For more information, please contact: [phone] (9AM - 5PM [facility], Tuesday-Tuesday) * Full Code (Latest Code Status on File) Date Activated Date Inactivated Comments 05/08/2023 7:28 AM Question Answer Comments Code Status Confirmed With: Patient Care Teams Justowriter Operator Relationship Specialty Start Date End Date Jovani Reese MD [address] [place] [address] [place] [address] PCP - General Internal Medicine 02/17/23 Additional Source Comments The information contained in this document represents components of the legal health record. It is not the complete legal health record.[facility]
--- OUTSIDE RECORDS SUMMARY | 2025-05-23 10:08 | XMS_ITS | Encounter Summary ---
Author Organization [facility] Address [address] [place] [address] Phone Care Team Providers Care Master Pilot Name Role Phone Jovani Reese MD Primary Care Provider [phone] Encounter Details Date Type Department Care Team (Late st Contact Info) Description 05/04/2023 Procedure Pass [facility] Periop [address] [place] [address] Social History Tobacco Use Types Packs/Day Years [...] AM EDT documented as of this encounter Functional Status * Calculated C-SSRS Risk Score (Lifetime/Recent) Answer Date of Assessment Author No Risk Indicated 05/05/2023 12:10 AM EDT Vern Sandoval RN * [place] Suicide Severity Rating Scale (Screener/Recent Self-Report) Question Answer Date of Assessment Author 1. Wish to be (Past 1 Month) No 05/05/2023 12:10 AM EDT Vern Jhaveri, DINA 2. Non-Specific Active Suicidal Thoughts (Past 1 Month) No 05/05/2023 12:10 AM EDT Vern Jhaveri RN 6. Suicidal Behavior (Lifetime) No 05/05/2023 12:10 AM EDT Vern Jhaveri RN documented as of this encounter Plan of Treatment Not on file documented as of this encounter Visit Diagnoses Not on filedocumented in this encounter Care Teams Master Pilot Relationship Specialty Start Date End Date Jovani Reese MD [address] [place] [address] [place] [address] PCP - General Internal Medicine 02/17/23 documented as of this encounter Additional Source Comments The information contained in this document represents components of the legal health record. It is not the complete legal health record.[facility]
[2025-05-23 10:31] LABS: Hematocrit 37.4 % (42.0-52.0); Hemoglobin 12.3 g/dl (14.0-18.0); Imm Gran Abs Auto 0.01 X10*3/uL (0.00-0.03); Imm Gran Pct Auto 0.2 % (0.0-0.4); Lymphocytes Absolute Auto 2.4 X10*3/uL (1.2-4.9); Mean Corpuscular HGB Conc 32.9 g/dl (31.0-36.0); Mean Corpuscular Hemoglobin 30.8 pg (27.0-33.0); Mean Corpuscular Volume 93.5 fL (80.0-98.0); NRBC Abs Auto 0.000 X10*3/uL (0.0-0.012); NRBC Pct Auto 0.0 /100WBC (0.0-0.2); Platelet Count 170 X10*3/uL (160-400); Red Blood Count 4.00 X10*6/uL (4.60-5.80); White Blood Count 6.2 X10*3/uL (4.8-10.8)
[2025-05-23 10:37] LABS: Appearance Urine Turbid; Glucose Urine UA Negative (Negative); PH 7.5 (5.0-9.0); Specific Gravity - Urine 1.015 (1.005-1.025); UMIC TRIGGER UACC YES
[2025-05-23 10:58] LABS: UACC Culture Trigger YES
[2025-05-23 11:10] LABS: Alanine Aminotransferase 16 U/L (0-40); Albumin Level 4.0 g/dL (3.5-5.0); Alkaline Phosphatase 132 U/L (39-117); Anion Gap 10 (12-20); Aspartate Amino Transferase 18 U/L (5-37); Blood Urea Nitrogen 31 mg/dL (9-16); Calcium 9.1 mg/dL (8.4-10.2); Carbon Dioxide 27 mmol/L (22-29); Chloride 110 mmol/L (96-108); Cholesterol 166 mg/dL (<200); Estimated Glomerular Filt Rate > 60; HDL Cholesterol 52 mg/dL (>40); Potassium 4.8 mmol/L (3.3-5.1); Sodium 142 mmol/L (135-145); Total Protein 6.6 g/dL (6.5-8.0); Triglycerides 37 mg/dL (<150)
[2025-05-23 11:30] LABS: Folate 9.5 ng/mL (> or = 4.0); Vitamin B12 532 pg/mL (200-900)
[2025-05-23 11:31] LABS: Microalbum/Creatinine Ratio Ur 54.5 ug/mg cr (<30)
[2025-05-23 12:05] LABS: Free T4 (Free Thyroxine) 0.91 ng/dL (0.71-1.85)
== END 2025-05-23 09:16 | disposition home or self-care (01) ==
LOC: HO.LAB 09:15
PROVIDERS: Visit Provider Internal Medicine
DX: E11.9 Type 2 diabetes mellitus without complications (principal); D64.9 Anemia, unspecified; E78.00 Pure hypercholesterolemia, unspecified; E53.8 Deficiency of other specified B group vitamins; E55.9 Vitamin D deficiency, unspecified
CPT/HCPCS: 36415; 80053; 80061; 81001; 82043; 82306; 82570; 82607; 82746; 83036; 84439; 84443; 85025; 87086

== ENCOUNTER 2025-07-04 10:09 | Outpatient (AMB) | payer MEDICARE, MEDICAID, SELFPAY ==
--- NOTE | 2025-07-04 10:23 | A.OFFVIS_ITS ---
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 [employer] Services: [employer] Offered & Declined (daughter to translate) Accompanied by: Daughter Allergies No Known Allergies (No Known Allergies*) Allergy (Verified 07/04/25 10:27) Medication List - Last Reconciled 07/04/25 by Asmita Smith CNP blood sugar diagnostic FREESTYLE LITE TEST STRIPS THREE TIMES A DAY blood-glucose meter (FreeStyle Lite Meter kit) use to check blood sugars twice a day ggopdkrvzz-ybxtilavaiznc-foaq 50-325-40 mg Take 1 to 2 tablets orally daily only as needed for migraine headaches; cetirizine 10 mg PO BEDTIME 30 days clotrimazole-betamethasone 1-0.05 % 1 appl topical BID PRN fluticasone propionate 50 mcg/actuation (Flonase Allergy Relief) 1 spray intranasal BID 30 days glyburide 5 mg PO DAILY ibuprofen 600 mg PO DAILY PRN lancets (FreeStyle Lancets) FREESTYLE LANCETS THREE TIMES A DAY lisinopril 10 mg PO DAILY metformin 1,000 mg PO BID mupirocin 2% (Centany) 1 appl topical DAILY PRN propranolol 10 mg PO DAILY triamcinolone acetonide 0.5% 1 appl topical TID HPI Comments Details: 75-year-old man with chronic depression, hypertension, and migraine headaches. He was here with his daughter. Headaches were still happening, some worse than o thers. He found OTC Excedrin to work better than ibuprofen as needed. Tremor was still there, especially if he had something heavy in his hands or was nervous. No falls. [facility] Medical History (Updated 07/04/25 @ 10:26 by Asmita Smith CNP) Tremor Migraine Overweight (BMI 25.0-29.9) Allergic rhinitis Bladder cancer Right renal atrophy Essential hypertension Peptic ulcer disease Diabetes mellitus Surgical History History of bladder surgery History of esophagogastroduodenoscopy (EGD) H/O rhinoplasty H/O blepharoplasty History of colonoscopy History of appendectomy Family History (Updated 07/04/25 @ 10:24 by Asmita Smith CNP) Father Headache Mother No problems noted. Sister Headache Social History Housing: House Alcohol intake: never Patient Tobacco Use Status: Never used Tobacco Tobacco use type: Cigarette e-Cigarette/Vaping Use: Never Used Second Hand Smoke Exposure: No service: No Current occupational status: retired Current occupational exposures/hazards: No Cognitive needs: No Hearing needs: Yes Vision needs: Yes Review of Systems Const Denies chills, Denies daytime sleepiness, Denies difficulty sleeping, Denies fatigue, Denies fever(s), Denies frequent falls, Reports headache(s), Denies increased appetite, Denies poor appetite, Denies snoring, Denies weakness, Denies weight gain and Denies weight loss Eyes Denies loss of vision ENT Denies vertigo, Denies dizziness and Reports headache(s) Card Denies chest pain at rest, Denies chest pain with activity, Denies syncope, Denies leg edema and Denies palpitations Resp Denies snoring GI Denies constipation, Denies heartburn, Denies diarrhea and Denies nausea Denies urinary frequency, Denies urinary incontinence and Denies urinary urgency Musc Denies abnormal gait, Denies numbness and Denies tingling Skin/Breast Denies dry skin and Denies rash Neuro Denies abnormal gait, Denies vertigo, Denies dizziness, Denies syncope, Denies frequent falls, Reports headache(s), Denies lack of coordination, Denies loss of vision, Denies memory loss, Denies numbness, Denies restless legs, Denies sei zure-like activity, Denies tingling, Denies paresthesias, Reports tremor(s) and Denies weakness Psych Denies anxiety, Denies depression, Denies auditory hallucinations, Denies memory loss, Denies visual hallucinations and Denies suicidal ideation Endo Denies fatigue and Denies palpitations Physical Exam Const Other: General Appearance:? normal, in no acute distress. Skin:? no rashes, no significant birthmarks. Heart:? S1, S2 normal, no murmurs. Lungs:? clear anteriorly and posteriorly. Extremities:? no edema. Psych:? alert, oriented, cognitive function intact, cooperative with exam. Neuro Other: Mental Status:?Normal attention, orientation, memory and affect.? Cranial Nerves:?Pupils are equal, round and reactive to light. External occular muscles are intact. Visual figueroa are full. Face is symmetrical. Facial sensations are normal. Tongue is midline. Palate elevates symmetrically. Shoulder shrugging is normal. Hearing to bedside conversation is normal. Coordination:?No ataxia,?no titubation.? Gait Exam: Within normal limits. Cerebellar Signs:?Ftsbbl-dz-ivus is okay. Extrapyramidal System:?No tremor, rigidity with normal facial expressions.? Pronator Drift:?Not present.? Involuntary Movements:?Mild postural tremor, R > L. Mild intermittent rest tremor of right thumb and index finger. Speech:?Normal.? Assessment & Plan Assessment & Plan (1) Migraine: Code(s): G43.909 - Migraine, unspecified, not intractable, without status migrainosus Category: Medical Qualifiers: Migraine type: unspecified Status migrainosus presence: without status migrainosus Intractability: not intractable Qualified Code(s): G43.909 - Migraine, unspecified, not intractable, without status migrainosus Plan: Continue ibuprofen 600mg 1 tablet with food or milk as needed for headache #10 for 30 days. May use OTC Excedrin as needed instead. (2) Tremor: Code(s): R25.1 - Tremor, unspecified Category: Medical Plan: Continue propranolol 10mg 1 tablet daily. Plan Meds tried: butalbital Coding Level of Care Code Est Pt Level 4 (92794) Diagnoses Migraine without status migrainosus, not intractable, unspecified migraine type G43.909 Migraine type: unspecified Status migrainosus presence: without status migrainosus Intractability: not intractable Tremor R25.1
--- OUTSIDE RECORDS SUMMARY | 2025-07-04 12:12 | XMS_ITS | Clinical Summary ---
Author Organization [facility] Address [address] [place] [address] Phone Care Team Providers Care Swing Saw Operator Name Role Phone Jovani Reese MD Primary Care Provider [phone] Allergies No known active allergies Medications metFORMIN [...] patient's age to complete this topic IPV VACCINES Aged Out No longer eligi ble based on patient's age to complete this topic MENINGOCOCCAL VACCINES (ACWY) Aged Out No longer eligible based on patient's age to complete this topic MENINGOCOCCAL VACCINES (B) Aged Out N o longer eligible based on patient's age to complete this topic Medical Devices Implanted Type Area Cylinder Press Operator Helper Device Identifier Shelf Expiration Date Model / Serial / Lot Stent Diversion 7fr 90cm X2 Ureteral Single J Guidewire Ptfe .028 120cm Silicone - [id number] Implanted:Qty : 1 on 05/04/2023 by Daniel Ayala MD at [facility] Ureteral Stent Left: Ureter [employer] 02/09/2027 [id number] / / [id number] Description:1 package with 2 stents in it, bilateral ureter Stent Diversion 7fr 90cm X2 Ureteral Single J Guidewire Ptfe .028 120cm Silicone - [id number] Implanted:Qty : 1 on 05/04/2023 by Daniel Ayala MD at [facility] Ureteral Stent Right: Ureter [employer] 02/09/2027 [id number] / / [id number] Description:One package with 2 stents, bilateral Procedures Procedure Name Priority Date/Time Associated Diagnosis Comments BASIC METABOLIC PANEL (BMP) Routine 06/06/2023 5:12 PM EDT Urothelial cancer from Last 3 Months or Most Recently Relevant to Health Maintenance Results * (ABNORMAL) Basic metabolic panel (06/06/2023 5:12 PM EDT) SODIUM 128(L) 136 - 145 mmol/L [facility] POTASSIUM 4.9 3.4 - 5.1 mmol/L [facility] CHLORIDE 94(L) 98 - 107 mmol/L [facility] CO2 20(L) 22 - 31 mmol/L [facility] BUN 15 6 - 23 mg/dL [facility] CREATININE 0.98 0.50 - 1.20 mg/dL [facility] GLUCOSE 121(H) 70 - 100 mg/dL [facility] CALCIUM 9.1 8.8 - 10.7 mg/dL [facility] EGFR 80 >59 mL/min/1.7 3m2 [facility] Comment:Estimated glomerular filtration rate calculated using the CKD-EPI refit equation. ANION GAP 14 7 - 17 mmol/L [facility] Blood 06/06/2023 5:12 PM EDT 06/06/2023 5:27 PM EDT us Emmanuel Ramirez MD, MPH LAB BLOOD BKR ORDERABLES Final Result [facility] [address] [place] [id number] from Last 3 Months or Most Recently Relevant to Health Maintenance [place]ALTH MEDICARE PART A & B Advance Directives For more information, please contact: [phone] (9AM - 5PM [facility], Tuesday-Tuesday) * Full Code (Latest Code Status on File) Date Activated Date Inactivated Comments 05/08/2023 7:28 AM Question Answer Comments Code Status Confirmed With: Patient Care Teams Swing Saw Operator Relationship Specialty Start Date End Date Jovani Reese MD [address] [place] [address] [place] [address] PCP - General Internal Medicine 02/17/23 Additional Source Comments The information contained in this document represents components of the legal health record. It is not the complete legal health record.[facility]
--- OUTSIDE RECORDS SUMMARY | 2025-07-04 12:13 | XMS_ITS | Encounter Summary ---
Author Organization [facility] Address [address] [place] [address] Phone Care Team Providers Care Position Description Manager Name Role Phone Jovani Reese MD Primary Care Provider Encounter Details Date Type Department Care Team (Late st Contact Info) Description 05/04/[address] [facility] Periop [address] [place] [address] Social History Tobacco Use Types Packs/Day Years [...] 12:10 AM EDT Vern Sandoval RN * [place] Suicide Severity Rating Scale (Screener/Recent Self-Report) Question [...] on filedocumented in this encounter Care Teams Position Description Manager Relationship Specialty Start Date End Date Jovani Reese MD [address] [place] [address] [place] [address] PCP - General Internal Medicine 02/17/23 documented as of this encounter Additional Source Comments The information contained in this document represents components of the legal health record. It is not the complete legal health record.[facility]
--- OUTSIDE RECORDS SUMMARY | 2025-07-04 12:13 | XMS_ITS | Clinical Summary ---
Author Organization [facility] Address [address] [place] [address] Care Team Providers Care Manager Truck Name Role Phone Unavailable Primary Care Provider [...] Description 07/17/2025 10:40 AM EST Office Visit [facility] [address] [place] [address] [address] [place], [place] [id number] Health Maintenance Due Date Last Done Comments [...] Drug Screen 08/22/2024 Depression Annual Screen 08/22/2024 [id number] ( - season) 2025 Imm-Influenza (#1) 2025 [...] disease due to type 2 diabetes mellitus ([facility]) Full PROPHYLAXIS - ADULT Routine 025 3:00 PM EDT 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
--- OUTSIDE RECORDS SUMMARY | 2025-07-04 12:13 | XMS_ITS | Encounter Summary ---
Author Organization [facility] Address [address] [place] [address] Phone Care Team Providers Care Front End Software Developer Name Role Phone Jovani Reese MD Primary Care Provider [phone] Encounter Details Date Type Department Care Team (Late st Contact Info) Description 03/18/2023 Procedure Pass [facility] [address] [place] [address] Social History Tobacco Use Types Packs/Day Years [...] on filedocumented in this encounter Care Teams Front End Software Developer Relationship Specialty Start Date End Date Jovani Reese MD [address] [place] [address] [place] [address] PCP - General Internal Medicine 02/17/23 documented as of this encounter Additional Source Comments The information contained in this document represents components of the legal health record. It is not the complete legal health record.[facility]
--- OUTSIDE RECORDS SUMMARY | 2025-07-04 12:13 | XMS_ITS | Encounter Summary ---
Author Organization [facility] Address [address] [place] [address] Phone Care Team Providers Care Track Man Name Role Phone Jovani Reese MD Primary Care Provider [phone] Encounter Details Date Type Department Care Team (Late st Contact Info) Description 03/18/2023 Procedure Pass [facility] [address] [place] [address] Social History Tobacco Use Types Packs/Day Years [...] on filedocumented in this encounter Care Teams Track Man Relationship Specialty Start Date End Date Jovani Reese MD [address] [place] [address] [place] [address] PCP - General Internal Medicine 02/17/23 documented as of this encounter Additional Source Comments The information contained in this document represents components of the legal health record. It is not the complete legal health record.[facility]
--- OUTSIDE RECORDS SUMMARY | 2025-07-04 12:13 | XMS_ITS | Encounter Summary ---
Author Organization [facility] Address [address] [place] [address] Care Team Providers Care Division Superintendent Name Role Phone Physician, Pcp Unknown Primary Care Provider Luna vailable Encounter Details Date Type Department Care Team (Late st Contact Info) Description 11/29/2024 Lab Requisition [facility] - Main Lab [address] [facility] [place] [address] Angelo Vanessa MD [address] [place] [address] Malignant neoplasm of overlapping sites of bladder ([facility]/HCC V24, CMS/[facility] V28) Social History Tobacco Use Types Packs/Day [...] sites of bladder (CMS/HCC V24, CMS/[facility] V28) documented in this encounter Results * Anatomic pathology outside consult (11/21/2024 12:00 AM EDT) Final Diagnosis A. Urine, Voided, ([id number]): Negative for high grade urothelial carcinoma. Results of UroVysion fluorescence in situ hybridization (FISH) testing: Although FISH was performed, insufficient non-obscured hybridization signals are present for evaluation and interpretation. 11/30/2024 5:09 PM EDT [facility] Clinical Information Malignant neoplasm of overlapping sites of bladder C67.8 Urine Cytology/FISH (now) 11/30/2024 5:09 PM EDT [facility] Gross Description A. Urine, Voided, ([id number]): Received one ThinPrep slide for cytology and one ThinPrep slide for UroVysion FISH 11/30/2024 5:09 PM EDT [facility] Disclaimer Unless otherwise specified, all tissue is 10% NB formalin fixed and paraffin embedded. Technical pathology services provided by [facility] at [address] [facility] [address], [place] [address] (CLIA #[id number]/Rebekah Mireles MD, [employer] Feather Trimmer) 11/30/2024 5:09 PM EDT [facility] Tissue Urine specimen from urethra / Unknown 11/21/2024 11/29/2024 8:08 AM EDT us Angelo Vanessa MD LAB PATHOLOGY ORDERABLES Fin al Result [facility] [address] [place] [address], documented in this encounter Visit Diagnoses Diagnosis Malignant neoplasm of overlapping sites of bladder (CMS/HCC V24, CMS/HCC V28) documented in this encounter Care Teams Division Superintendent Relationship Specialty Start Date End Date Physician, Pcp Unknown PCP - General 11/29/24 documented as of this encounter
--- OUTSIDE RECORDS SUMMARY | 2025-07-04 12:13 | XMS_ITS | Clinical Summary ---
Author Organization [address] [facility] Address [address] [place] [address] Phone Care Team Providers Care Associate Designer Name Role Phone Physician, Pcp Unknown Primary [...] Health Screening 11/29/2024 COVID-19 Vaccine (1 - 2024-2 6 season) 2025 Influenza Vaccine (#1) 2025 HIB [...] Insurance MEDICA[place] - [place] MEDICARE Care Teams Associate Designer Relationship Specialty Start Date End Date Physician, Pcp Unknown PCP - General 11/29/24
--- OUTSIDE RECORDS SUMMARY | 2025-07-04 12:13 | XMS_ITS | Data Portability ---
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 Today we discussed the idiopathic nature of the asymmetry and the lack of further work-up modalities to elucidate the cause. We reviewed the audiometric findings recommended that he use the amplification that he already has, as this may help with headaches. He should speak with his director of design at [facility] audiology to ensure they are adjusted to match his current level of hearing loss. Once again I recommended following the TMJ instruction sheet to help with his chronic TMJ pain which is also a likely cause for headaches. Referral to physical therapist who specializes in TMJ could be considered. [email or web address] Not available 01/20/2024 11:04:18 09/10/2024 09/10/2024 74 year-old male with TMJ presents with daughter for evaluation of the ears. Reports change in hearing. Cerumen impaction removed bilaterally, which patient tolerated well. Otologic exam demonstrated TMs are intact with well-aerated middle ear spaces. Recommend continued binaural amplification. Hearing aids were dispensed at [facility] 4 years ago. MRI Brain + IAC in 12/2023 was without retrocochlear pathology. Referral to physical therapist who specializes in TMJ could be considered. Patient will return for formal hearing evaluation. [email or web address] Not available 09/10/2024 10:05:51 10/19/2024 10/19/2024 74-year-old male with amplification and TMJ presents with daughter for evaluation of hearing. Otologic exam demonstrates TMs are intact with well-aerated middle ear spaces. Audiogram demonstrates mild age-related neurosensory hearing changes since previous testing. Recommend he return to [facility] audiology for hearing aid adjustment. MRI Brain + IAC in 12/2023 was without retrocochlear pathology. Recommend trial of ipratropium bromide 2 sprays twice daily for chronic anterior rhinorrhea. Recommend annual follow-up for repeat audiometric testing. [email or web address] Not available 10/19/2024 17:42:07 Plan of Treatment Reminders Order Date Submit Date Provider Last Modified By Organization Details Last Modified Time Details Appointments None recorded. Lab None recorded. Referral None recorded. Procedures None recorded. Surgeries None recorded. Imaging None recorded. Medication Orders ipratropium bromide 21 mcg (0.03 %) nasal spray 2024 025 [id number], [address] [facility], [place], [place], [phone], 14:40:30 Patient TargetsNo targets recorded. Patient InstructionsNo instructions recorded. Reason for Referral None Reported. Results Created Date Observation Date Name Description Value Unit Range Abnormal Flag Note LastModifiedBy Organization Detail LastModifiedTime 01/20/20 24 01/02/2024 MRI, brain + inter nal audit ory canal , w/wo contr ast No observ ation record ed. [email or web address] Not Available 2023 13:53:25 04/11/20 24 11/22/2023 imagi ng/di agnos tic resul t No observ ation record ed. [email or web address] Not Available 16:55:42 04/11/20 24 11/22/2023 imagi ng/di agnos tic resul t No observ ation record ed. [email or web address] Not Available 16:55:45 04/11/20 24 01/02/2024 imagi ng/di agnos tic resul t No observ ation record ed. [email or web address] Not Available 16:55:48 04/11/20 24 01/03/2024 imagi ng/di agnos tic resul t No observ ation record ed. [email or web address] Not Available 16:55:49 04/11/20 24 06/13/2023 imagi ng/di agnos tic resul t No observ ation record ed. [email or web address] Not Available 16:55:51 04/11/20 24 11/22/2023 audio gram No observ ation record ed. [email or web address] Not Available 16:56:01 10/19/19 audio gram No observ ation record ed. [email or web address] Not Available 2024 16:39:43 Result Notes None recorded. Problems Name Problem SNOMED Code Status Onset Date Resolution Date Notes Provider Name and Address Organization Details Recorded Time Dizziness and giddiness 455984358 Active 2023 Dizziness and giddiness ; Note: Date Diagnosed : 11/22/2023 2:34 PM (R42) Not Available [facility] 4 03:22:20 Pain of right temporoma ndibular joint 30514472768 961631 Active 2023 Arthralgi a of right temporoma ndibular joint; Note: Date Diagnosed : 11/22/2023 2:39 PM (M26.621) Not Available [facility] 4 03:22:20 Sensorine ural hearing loss of bilateral ears 992084907 Active 2023 MANJINDER MAYORGA MD [address] [place] [address],[place] [address], [place], [address] , [facility] 4 11:00:05 Otalgia of right ear 7033226441 Active 2023 MANJINDER MAYORGA MD [address] [place] [address],[place] [address], [place], [address] , [facility] 4 11:01:08 Headache 57987917 Active 2023 MANJINDER MAYORGA MD [address] [facility],[place] [address], [place], [address] , [place] - [facility] 4 11:01:25 Impacted cerumen of bilateral ears 04078346965 10153 Active 2024 FREDDIE YOUSSEF PA-C [address] [facility],[place] [address], [place], [address] , [facility] - [facility] 5 21:58:43 Chronic rhinitis 26545042 Active 2024 FREDDIE YOUSSEF PA-C [address] [facility],[place] [address], [place], [address] , [place] - [facility] 5 14:38:59 Problem Notes None recorded. Procedures Surgical History Date Name Laterality Status Provider Name and Address Organization Details Recorded Time 10/19/19 25 Air only Audio - 90359 completed NICKY MCKOY [address] [facility],[address], [address], [facility] - [facility] 10/19/2024 13:55:36 10/19/19 25 Tympanometry - 15299 completed NICKY MCKOY [address] [facility],[address], [address], [facility] - [facility] 10/19/2024 13:55:39 09/10/19 25 Cerumen removal without microscope bilat completed FREDDIE YOUSSEF PA-C [address] [facility],[address], [address], [facility] - [facility] 09/09/2024 21:58:47 01/20/20 24 Telehealth completed MANJINDER MAYORGA MD [address] [facility],[address], [address], [facility] - [facility] 01/20/2024 13:34:53 Imaging Results None recorded. Procedure Notes None recorded. Medical Equipment None Reported. Medications Name Sig Start Date Stop Date Status Note LastModified by Organization Details LastModified Time metformin 500 mg tablet TAKE 1 TABLET BY MOUTH TWICE DAILY active Not Available Not Available No t Available triamcoral garber acetonide 0.5 % topical cream APPLY TOPICALL Y TO THE AFFECTED AREA THREE TIMES DAILY active Not Available Not Available No t Available cetirizin e 10 mg tablet active Medicati on ID: [id number] B rand Name: cetirizi ne Send Method: E-Prescr ibed Sub s Allowed: subs OK Speci al Instruct ion: TAKE 1 TABLET BY MOUTH ONCE A DAY AT BEDTIME FOR ALLERGY SYMPTOMS Medicat ionGener icName: cetirizi ne Not Available Not Available Not Available glyburide 5 mg tablet TAKE 1 TABLET BY MOUTH DAILY active Not Available Not Available No t Available cephalexi n 250 mg capsule TAKE 1 CAPSULE BY MOUTH EVERY 6 HOURS 09/10 completed Not Available Not Available Not Available butalbita l-acetami nophen-ca ffeine 50 mg-325 mg-40 mg tablet TAKE 1 TO 2 TABLETS BY MOUTH EVERY DAY NEEDED FOR MIGRAINE active Not Available Not Available No t Available propranol ol 10 mg tablet TAKE 1 TABLET BY MOUTH DAILY active Not Available Not Available No t Available phenazopy ridine 100 mg tablet TAKE 1 TABLET BY MOUTH THREE TIMES DAILY NEEDED FOR PAIN 09/10 completed Not Available Not Available Not Available metformin 1,000 mg tablet TAKE 1 TABLET BY MOUTH TWICE DAILY 09/10 completed Not Available Not Available Not Available clotrimaz ole-betam ethasone 1 %-0.05 % topical cream APPLY TOPICALL Y TO THE AFFECTED AREA TWICE DAILY FOR 2 WEEKS 09/10 completed Not Available Not Available Not Available lisinopri l 10 mg tablet TAKE 1 TABLET BY MOUTH DAILY active Not Available Not Available No t Available mupirocin 2 % topical ointment APPLY TO THE AFFECTED AREA ON BACK EVERY DAY NEEDED active Not Available Not Available No t Available ipratropi um bromide 21 mcg (0.03 %) nasal spray [place] 2 sprays twice a day by intranas al route, for runny nose. active Not Available Not Available No t Available FreeStyle Lite Meter kit USE TO CHECK BLOOD SUGARS TWICE DAILY active Not Available Not Available No t Available FreeStyle Lite Strips USE TO TEST BLOOD SUGAR THREE TIMES A DAY active Not Available Not Available No t Available omeprazol e 20 mg tablet,de layed release active Medicati on ID: [id number] B rand Name: omeprazo le Send Method: E-Prescr ibed Sub s Allowed: subs OK Medic ationGen ericName : omeprazo le Not Available Not Available Not Available GaviLyte- G 236 gram-22.7 4 gram-6.74 gram-5.86 gram oral solution DRINK 240MLS BY MOUTH EVERY 10 MINUTES FOR 1 DAY UNTIL FECAL EFFIUENT IS CLEAR. DO NOT EXCEED 2000MLS 09/10 completed Not Available Not Available Not Available Vitals Date Recorded Body height Body mass index (BMI) Body weight Provider Name and Address Organization Details Last Updated DateTime 09/10/2024 152.4 cm 30.9 kg/m2 69537.59 g Liz Putnam [facility] 09/10/2024 09:45:48 Date Recorded Body height Body mass index (BMI) Body weight Provider Name and Address Organization Details Last Updated DateTime 10/19/2024 152.4 cm 30.9 kg/m2 45607.59 g Zulema Ash [facility] 10/19/2024 13:04:06 Social History None recorded. Functional Status None recorded. Mental Status None recorded. Family History Nothing Reported. Medical History No medical history recorded. Past Encounters Encounter ID Performer Location Encounter Start Date Encounter Closed Date Diagnosis/Indication Diagnosis SNOMED-CT Code Diagnosis ICD10 Code Diagnosis IMO Codes Diagnosis Note [id number] MANJINDER MAYORGA MD [facility] [address] [address] 01/20/2024 11:10:27 01/23/2024 07:25:31 Sensorineural hearing loss of bilateral ears 708533846 H90.3 Otalgia of right ear 067 4390959 H92.01 Headache 15271446 R51.9 [id number] FREDDIE YOUSSEF PA-C [facility] [address] [address] 09/10/2024 09:38:24 09/10/2024 10:00:13 Impacted cerumen of bilateral ears 0375306366 402472 H61.23 Pain of ri ght temporomandibular joint 7845470009 2860757 M26.621 Sensorineu ral hearing loss of bilateral ears 070275242 H90.3 [id number] FREDDIE YOUSSEF PA-C [facility] [address] [address] 10/19/2024 12:52:23 10/19/2024 14:42:16 Chronic rhinitis 11292042 J31.0 Pain of ri ght temporomandibular joint 9892392052 0042752 M26.621 Reviewed TMJ precaution s. Recommend medical grade mouthguard from dentist. Sensorineu ral hearing loss of bilateral ears 699467757 H90.3 [id number] NICKY MCKOY [facility] [address] [address] 10/19/2024 13:55:17 10/22/2024 07:23:00 Sensorineural hearing loss of bilateral ears 259159565 H90.3 Audiologic al evaluation results: Right ear: Mild sloping to moderately severe sensorineu ral hearing loss. Left ear: Mild sloping to moderately severe sensorineu ral hearing loss. Tympanomet ry: Right Ear:Type A Left Ear:Type A Health Concerns Section Related Observation LastModified by Organization Detai ls LastModified Time None Recorded Concern Status LastModified by Organization Details LastModified Time None Recorded Advance Directives Directive None Recorded Payers Insurance Date Sequence Insurance Name Policy Number Policy Carey Covered Member ID Carey Member ID Guarantor Name 10/19/2024 1 [place]: [employer] Slade Lepe [id number] Slade Lepe 10/26/2024 2 [place] [facility] Slade Lepe [id number] Slade Lepe Notes Date Note Type Note Provider Name and Address Organization Details Recorded Time 01/20/2024 text/html Patient with asymmetric sensorineural hearing loss who I sent for MRI scan of the brain and internal auditory canals to rule out retrocochlear pathology. Telehealth visit carried out in the presence of the patient's daughter who is helping to translate Uzbek. MANJINDER MAYORGA MD [address] [address], [place], [address], [place] - [facility] 01/20/2024 13:36:01 09/10/2024 text/html ROS as noted in the [facility] 74 year-old male with TMJ presents with daughter for evaluation of the ears. Reports change in hearing. Occasional right otalgia. Hearing aids were dispensed at [facility] 4 years ago. Daughter reports he wears them on occasion. Denies otorrhea, change in tinnitus, or Qtip use. Prior MRI brain + IAC in 12/2023 without retrocochlear pathology. Referral to physical therapist who specializes in TMJ could be considered. YAMILE BERUMEN MD [address] [facility],[place] [address], [place], [address], [place] - [facility] 09/10/2024 12:32:49 10/19/2024 text/html ROS as noted in the [facility] 74-year-old male with TMJ presents with daughter for evaluation of hearing. Denies ear drainage or tinnitus. He reports persistent right sided jaw pain. Daughter reports he was recently seen by dentist, who confirmed patient did not have any dental infection or require dental work. He would also like to discuss chronic runny nose. No history of seasonal allergies. TONIA HASSAN MD [address] [facility] [place] [place] [address], [place], [address], [place] - [facility] 10/21/2024 21:19:40
== END 2025-07-04 10:37 | disposition home or self-care (01) ==
LOC: HO.HSM 10:11
PROVIDERS: PCP Internal Medicine; Referring Provider Internal Medicine; Visit Provider Registered Nurse
DX: G43.909 Migraine, unspecified, not intractable, without status migrainosus (principal); R25.1 Tremor, unspecified
CPT/HCPCS: 99214

== ENCOUNTER → 2025-07-04 10:09 | Outpatient (BNVA) | payer MEDICARE, MEDICAID, SELFPAY | PROVIDERS: PCP Internal Medicine; Referring Provider Internal Medicine; Visit Provider Registered Nurse | DX: G43.909 Migraine, unspecified, not intractable, without status migrainosus (principal); R25.1 Tremor, unspecified; I10 Essential (primary) hypertension; F32.A Depression, unspecified | CPT/HCPCS: 99212 ==